=== PATIENT | male | born 1990 | race African-American/Black ===

== ENCOUNTER 2016-04-09 17:35 | Emergency (ER) | payer BC ==
[2016-04-09 18:45] LABS: BASOPHILS 0.7 % (0.0-2.0); HEMATOCRIT 40.6 % (42.0-54.0); HEMOGLOBIN 13.8 g/dL (13.5-17.5); IMMATURE GRANULOCYTES 0.2 % (0-5); LYMPHOCYTES 45.1 % (15-50); MCH 30.4 pg (26.0-34.0); MCV 89.4 fL (80.0-100.0); MONOCYTES 8.5 % (2-11); NEUTROPHILS 40.5 % (40-80); PLATELET COUNT 225 10x3/uL (130-400); RBC 4.54 10x6/uL (4.20-6.10); RDW 12.5 % (11.5-14.5); WBC 5.4 10x3/uL (4.8-10.8)
[2016-04-09 18:56] LABS: ALBUMIN 3.8 g/dL (3.4-5.0); ALKALINE PHOSPHATASE 44 U/L (46-116); ALT (SGPT) 189 U/L (10-68); BILIRUBIN - TOTAL 0.41 mg/dL (0.2-1.3); CALC OSMOLALITY 282 mosm/kg (275-300); CALCIUM 9.6 mg/dL (8.5-10.1); CARBON DIOXIDE 28.7 mmol/L (21.0-32.0); CHLORIDE - SERUM 104 mmol/L (98-107); CREATININE - SERUM 1.2 mg/dL (0.6-1.3); GLUCOSE 98 mg/dL (74-106); POTASSIUM - SERUM 4.1 mmol/L (3.5-5.1); SODIUM 141 mmol/L (136-145); UREA NITROGEN 18 mg/dL (7-18); eGFR NON AFRICAN AMERICAN 80 mL/min (90-120)
[2016-04-09 19:46] LABS: APPEARANCE CLEAR (CLEAR); BILIRUBIN NEGATIVE (NEGATIVE); COLOR YELLOW (YELLOW); GLUCOSE NEGATIVE (NEGATIVE); KETONE NEGATIVE (NEGATIVE); LEUKOCYTE ESTERASE NEGATIVE (NEGATIVE); NITRITE NEGATIVE (NEGATIVE); PROTEIN NEGATIVE (NEGATIVE); UROBILINOGEN NORMAL (NORMAL)
[2016-04-09 20:09] LABS: AMYLASE - SERUM 90 U/L (25-115); LIPASE 152 U/L (73-393)
--- NOTE | 2016-04-12 15:59 | CN ---
PATIENT NAME:DANITZA MELENDREZ MEDICAL RECORD: [id number] : [birth year] LOCATION:.ER ADMIT DATE: ACCOUNT: [id number] CONSULTING PHYSICIAN: DANITZA SANCHEZ MD REFERRING PHYSICIAN: CATHLEEN OLIVER MD DATE OF CONSULTATION: 04/09/2016 Consultation note addendum CHIEF COMPLAINT: Abdominal pain. HISTORY OF PRESENT ILLNESS: The patient presents with abdominal pain. The CT scan revealed a marked dilation of the colon. There is no apparent volvulus. The patient appears to be quite constipated. He states that he has normal bowel movements. He has a huge amount of fecal material present. There was a question of a rectosigmoid mass. I really do not think that there is a mass, or else, the patient would not have all of the solid fecal material that is present within the rectum, which is distal to the mass. Palpation aggravates. Nothing alleviates. Symptoms are mild. They are nonradiating. This is a dictated portion of the consultation note. For the typed portion, please the chart. This would include the past medical and surgical history, allergies, current medications, and social history. REVIEW OF SYSTEMS: Positive for abdominal pain. Positive for nausea. No fever, no chills, no peritonitis, no shortness of breath, and no chest pain. The rest of the review of systems is negative other than as is described above. PHYSICAL EXAMINATION: GENERAL: The patient does not appear acutely ill. He does not appear chronically ill. VITAL SIGNS: Reviewed. HEAD: External ears appear normal. EYES: Extraocular movements are intact. NECK: Trachea is midline. CHEST: No intercostal retractions. PULMONARY: Nonlabored and no stridor. ABDOMEN: Lower abdominal tenderness without guarding. No peritonitis. EXTREMITIES: No peripheral cyanosis. INTEGUMENT: No rash and no ulcerations. PSYCHIATRIC: Normal affect. NEUROLOGIC: Nonfocal and no lethargy. The patient answers questions appropriately. He moves all extremities well. BACK: No thoracic kyphosis. LYMPHATICS: No lymphangitic streaking of the exposed extremities. IMPRESSION: Marked constipation. PLAN: GoLYTELY. I will see the patient on a p.r.n. basis. I have recommended that he had a colonoscopy sometime in the future. TRANSINT:[id number] Voice Confirmation ID: [id number] DOCUMENT ID: [id number] CONSULT REPORT [id number] DANITZA MELENDREZ, DANITZA CORONADO at 1559 CC: [id number] DICTATION DATE: 04/11/16 1055 SUBSTANCE ADDICTION COORDINATOR: 04/11/16 1111 DEP ER 04/09/16 [place] [id number] [place] [address]
== END 2016-04-09 22:46 | disposition home or self-care (01) ==
LOC: D.ER 17:35
PROVIDERS: Nurse Practitioner Family
DX: K59.00 Constipation, unspecified (principal)

== ENCOUNTER 2016-04-10 08:48 | Inpatient (IN) | payer BC ==
[~2016-04-10] VITALS: Ht 175.3 cm; Wt 74.1 kg
[2016-04-10 09:52] LABS: APPEARANCE CLEAR (CLEAR); BILIRUBIN NEGATIVE (NEGATIVE); COLOR YELLOW (YELLOW); GLUCOSE NEGATIVE (NEGATIVE); KETONE NEGATIVE (NEGATIVE); LEUKOCYTE ESTERASE NEGATIVE (NEGATIVE); NITRITE NEGATIVE (NEGATIVE); PROTEIN NEGATIVE (NEGATIVE); UROBILINOGEN NORMAL (NORMAL)
[2016-04-10 10:01] LABS: BASOPHILS 0.5 % (0.0-2.0); EOSINOPHILS 4.3 % (0-7); HEMATOCRIT 40.9 % (42.0-54.0); HEMOGLOBIN 13.9 g/dL (13.5-17.5); IMMATURE GRANULOCYTES 0.3 % (0-5); LYMPHOCYTES 37.6 % (15-50); MCH 30.5 pg (26.0-34.0); MCV 89.7 fL (80.0-100.0); MEAN PLATELET VOLUME 10.9 fL (7.4-10.4); MONOCYTES 8.7 % (2-11); NEUTROPHILS 48.6 % (40-80); PLATELET COUNT 222 10x3/uL (130-400); RBC 4.56 10x6/uL (4.20-6.10); RDW 12.6 % (11.5-14.5); WBC 5.9 10x3/uL (4.8-10.8)
[2016-04-10 10:28] LABS: ALBUMIN 3.4 g/dL (3.4-5.0); ALKALINE PHOSPHATASE 39 U/L (46-116); ALT (SGPT) 165 U/L (10-68); BILIRUBIN - TOTAL 0.49 mg/dL (0.2-1.3); CARBON DIOXIDE 31.7 mmol/L (21.0-32.0); CHLORIDE - SERUM 106 mmol/L (98-107); CREATININE - SERUM 1.2 mg/dL (0.6-1.3); GLUCOSE 90 mg/dL (74-106); POTASSIUM - SERUM 3.9 mmol/L (3.5-5.1); PROTEIN - SERUM 6.2 g/dL (6.4-8.2); SODIUM 144 mmol/L (136-145); eGFR NON AFRICAN AMERICAN 80 mL/min (90-120)
[2016-04-10 10:32] LABS: CALC OSMOLALITY 286 mosm/kg (275-300); UREA NITROGEN 13 mg/dL (7-18)
--- NOTE | 2016-04-10 12:36 | NUR ---
RECIEVED PATIENT VIA WHEELCHAIR WITH NURSE FROM ED, PATIENT'S MOM AND SISTER. PATIENT AWAKE, ALERT AND ORIENTED X'S 4. RESPIRATIONS ARE EVEN AND UNLABORED ON ROOM AIR. NO SIGNS OF DISTRESS NOTED. BED IN LOWEST POSITION, CALL LIGHT IN REACH. BED RAILS UP X'S 2.
[2016-04-10 12:45] VITALS: BP 115/78; Ht 175.3 cm; Wt 74.1 kg
[2016-04-10 18:10] VITALS: BP 108/71
--- NOTE | 2016-04-10 19:55 | NUR ---
PATIENT RESTING IN BED WITH NO SIGNS OF DISTRESS NOTED. DENIES ANY NEEDS AT THIS TIME. BED LOW CALL LIGHT IN REACH.
[2016-04-10 21:00] VITALS: BP 101/62
[2016-04-11 02:00] VITALS: BP 93/42
--- NOTE | 2016-04-11 02:30 | NUR ---
PT IN BED WITH NO NEEDS. LEFT FOREARM PATENT AND FLUIDS ARE RUNNING PER ORDER. SIDE RAILS ARE UP X 2. BED IS LOW. CALL LIGHT IS IN REACH.
[2016-04-11 06:00] VITALS: BP 94/41
[2016-04-11 08:30] VITALS: BP 107/45
[2016-04-11 12:14] VITALS: BP 101/49
--- NOTE | 2016-04-11 16:41 | NUR ---
Patient Name: DANITZA MELENDREZ Admission Status: ER Accout number: [id number] Admission Date: 04-10-2016 : 1990 Admission Diagnosis: Attending: JAVIER Current LOS: 1 Anticipated DC Date: 04-13-2016 Planned Disposition: Home Primary Insurance: [employer] Discharge Planning Comments: CM MET WITH PATIENT REGARDING D/C NEEDS AND PLANS. PATIENT STATES HE LIVES WITH HIS MOM (ELIZABETH) AND SISTER (BEAN). PATIENT STATED THERE ARE NO STEPS OR STAIRS AT HIS HOME. PATIENT DOES NOT HAVE A PCP AND USES [facility] [address] FOR HIS PHARMACY. PATIENT IS INDEPENDENT WITH HIS NEEDS AND NO DME AT HOME. PATIENT DENIES NEEDS FOR HOME HEALTH. CM WILL CONTINUE TO FOLLOW PATIENT WITH D/C NEEDS AND PLANS. PCP NONE [facility] [address]- [phone] BEAN (SISTER) [phone] ELIZABETH (MOM) [phone] Sap Gatherer: Noy Gonzalez Is the patient Alert and Oriented? Yes 0 * How many steps to enter\exit or inside your home? 0 0 * PCP NONE 0 * Pharmacy [facility] [address] 0 * Preadmission Environment Home with Family 0 * ADLs Independent 0 * Equipment None 0 * List name and contact numbers for known caregivers / representatives who currently or will assist patient after discharge: ELIZABETH HERNANDEZ (MOM) [phone] BEAN MELENDREZ (SISTER) [phone] 0 * Community resources currently utilized None 0 * Additional services required to return to the preadmission environment? Yes 0 * Can the patient safely return to the preadmission environment? Yes 0 * Has this patient been hospitalized within the prior 30 days at any hospital? No 0 Grand Total: 0
[2016-04-11 16:54] VITALS: BP 109/53
[2016-04-11 21:00] VITALS: BP 98/51
[2016-04-12 00:21] VITALS: BP 98/45
--- NOTE | 2016-04-12 02:04 | NUR ---
RESTING WITH EYES CLOSED, RESP WITH EASE, NO DISTRESS NOTED, CL IN REACH
[2016-04-12 05:00] VITALS: BP 104/96
--- NOTE | 2016-04-12 07:05 | NUR ---
PATIENT RECEIVED ALERT IN LOW GRAYSON POSITION. RESPIRATIONS EVEN AND UNLABORED. SIDE RAILS UP X1. BED IN LOW POSITION. CALL LIGHT IN REACH. DENIES NEEDS
[2016-04-12 07:53] VITALS: BP 140/80
--- NOTE | 2016-04-12 10:08 | NUR ---
PATIENT ALERT IN BED WITH FAMILY PRESENT. SCHEDULED MEDICATION ADMINISTERED. DENIES NEEDS. BED IN LOW POSITION. CALL LIGHT IN REACH.
--- NOTE | 2016-04-12 10:30 | NUR ---
REPORT CALLED TO [facility]. DAYA LATHAM RN RECEIVED REPORT.
--- NOTE | 2016-04-12 11:15 | NUR ---
PATIENT AMBULATED TO ROOM ACCOMPANIED BY VOLUNTEER AND FAMILY. BELONGINGS WITH HIM. TWO FEMALE VISITORS TO STAY WITH HIM TODAY.
--- NOTE | 2016-04-12 12:00 | NUR ---
CALL PLACED TO GI LAB. PATIENT IS EXPECTED TO GO FOR COLONOSCOPY SOMETIME BETWEEN 3 AND 4 THIS AFTERNOON. NOTIFIED SERENA. HE DENIES OTHER NEEDS AT THIS TIME.
--- NOTE | 2016-04-12 13:19 | NUR ---
PATIENT RESTING QUIETLY WITH LIGHTS OUT. HE DEINS NEEDS AT THISTIME.
--- NOTE | 2016-04-12 14:45 | NUR ---
PATIENT OFF UNIT IN BED FOR PROCEDURE.
--- NOTE | 2016-04-12 15:59 | HP ---
PATIENT: DANITZA MELENDREZ MEDICAL RECORD: [id number] ACCOUNT: [id number] [facility] : [birth year] ADMISSION DATE: 04/11/16 HISTORY AND PHYSICAL EXAMINATION DATE OF ADMISSION: 04/11/2016 HISTORY OF PRESENT ILLNESS: I saw the patient in the Emergency Room the night before last. He was constipated. I personally reviewed the CT images. I personally reviewed the CT report. We gave the patient GoLYTELY. He returned to the Emergency Room with abdominal pain, nausea and vomiting, as well as very little stool production even after drinking the entire bottle of the GoLYTELY. We need to find out the etiology for his constipation. Additionally, the CT reports raise the question of a sigmoid or rectal mass. They also mentioned possible enteritis or colitis; however, in that circumstance. The patient initially should have diarrhea. Nothing aggravates. Nothing alleviates. His abdomen is nontender. He is nauseated. No radiating symptoms. This is a history and physical addendum. For the typed portion of the history and physical including past medical and surgical history, home medications, allergies, as well as social history, please see the chart. REVIEW OF SYSTEMS: No shortness of breath, no chest pain. Positive for nausea. No abdominal pain. The patient states that he has normal bowel movements and I did not think he was constipated, until he was told so after we looked at the x-ray images. PHYSICAL EXAMINATION: GENERAL: The patient does not appear acutely ill. He does not appear chronically ill. VITAL SIGNS: Reviewed. HEAD: External ears appear normal. EYES: Extraocular movements are intact. NECK: Trachea is midline. CHEST: No intercostal retractions. PULMONARY: Nonlabored, no stridor. ABDOMEN: Nontender. EXTREMITIES: No peripheral cyanosis. INTEGUMENT: No rash, no ulcerations. PSYCHIATRIC: Normal affect. BACK: No thoracic kyphosis. LYMPHATICS: No lymphangitic streaking of the exposed extremities. IMPRESSION: 1. Constipation. 2. Possible rectosigmoid mass. PLAN: Continue bowel prep. Colonoscopy tomorrow. TRANSINT:[id number] Voice Confirmation ID: [id number] DOCUMENT ID: [id number] HISTORY AND PHYSICAL [id number] DANITZA MELENDREZ ROBERT MD at 1559 CC: [id number] DICTATION DATE: 04/11/16 1010 SURFACE SUPERVISOR: 04/11/16 1027 ADM IN [place] [id number] [place] [id number]
--- NOTE | 2016-04-12 16:20 | NUR ---
PATIENT RECEIVED BACK TO ROOM 1214. HE IS AWAKE AND ALERT, CONFUSED ABOUT LOCATION AND RECENT EVENTS. HE IS C/O NAUSEA. NO VOMITING. ZOFRAN GIVEN PER LEFT FA IV. INSERTION SITE IS WITHOUT REDNESS/ SWELLING. EXPLAINED THAT HE IS TO HAVE A FULL LIQUID DIET, BE WITHOUT NAUSEA AND PASS GAS BEFORE GOING HOME. ORDERS NOTED. HE AND HIS MOTHER VOICE UNDERSTANDING. SHE IS AT THE BEDSIDE WITH PT SISTER.
--- NOTE | 2016-04-12 16:35 | NUR ---
ICE CHIPS WERE GIVEN AT LAST ENCOUNTER. HE REQUESTS LEMON PRAIRIE BAND. GIVEN. NAUSEA CONTINUES.
--- NOTE | 2016-04-12 18:31 | NUR ---
REVIEWED PATIENT'S DISCHARGE INSTRUCTIONS. CHOLECYSTECTOMY DI GIVEN THOUGH HE DOESN'T FEEL LIKE HIS GALL BLADDER IS A PROBLEM. FOLLOW UP APPT MADE AND GIVEN WELL. MIRALAX DISCUSSED IN DETAIL, MECHANISM OF ACTION EXPLAINED. HE IS WITHOUT QUESTIONS. IV REMOVED FROM THE LEFT FOREARM. HE IS WITHOUT NEEDS. HE REQUESTS PERMISSION TO WALK OUT WITH HIS FAMILY. ALLOWED. DENIES WEAKNESS, PAIN.
--- NOTE | 2016-05-25 10:17 | OP ---
PATIENT NAME: ABDULKADIR MELENDREZ MEDICAL RECORD: [id number] :[birth year] LOCATION:[facility] ADMISSION DATE:04/11/16 SURGEON: ABDULKADIR SANCHEZ MD DATE OF OPERATION: 04/12/2016 PREOPERATIVE DIAGNOSES: 1. Constipation. 2. Rule out rectosigmoid mass. POSTOPERATIVE DIAGNOSES: 1. Constipation. 2. Tortuous and elongated colon. 3. No evidence of colonic polyps or masses. PROCEDURES: Total colonoscopy to cecum. SURGEON: Abdulkadir Sanchez MD OUTPATIENT INTERVIEWING CLERK: None. BLOOD LOSS: Minimal. ANESTHESIA: IV sedation. COMPLICATIONS: None. The reason for the anesthesia staff being present during the procedure includes anxiety regarding the procedure. ENDOSCOPIC COURSE: The patient was conveyed to endoscopy suite electively on 04/12/2016. IV sedation was induced by the anesthesia staff. The patient was placed in the Hernandes position. A digital rectal examination was performed. A colonoscope was inserted through the anus. It was easily advanced to the cecum. Following withdrawal, I irrigated and aspirated extensively. The prep was inadequate. I dragged the folds. The pullback was greater than a 14-minute pullback. I cannot rule out colonic or rectal masses. A retroflexed view was obtained in the rectum. I then unretroflexed the scope and removed it under direct vision. I will see the patient in my office in 2-3 weeks. I instructed the family to place the patient on MiraLax twice daily for his extreme constipation. TRANSINT:[id number] Voice Confirmation ID: [id number] DOCUMENT ID: [id number] ABDULKADIR SANCHEZ MD at 1017 CC: [id number] DICTATION DATE: 04/12/16 1602 GREEN CHAINER: 04/12/16 1832 DIS IN 04/12/16 [facility] [address] [place] [address]
--- NOTE | 2016-05-25 10:17 | DS ---
PATIENT:DANITZA MELENDREZ :89 MEDICAL RECORD: [id number] DISCHARGE SUMMARY ADMISSION DATE: 04/11/16 DISCHARGE DATE: 04/12/16 PREOPERATIVE DIAGNOSIS: Fecal impaction with extreme constipation. PRINCIPAL PROCEDURE: Total colonoscopy to cecum. HOSPITAL COURSE: The patient was admitted through the Emergency Room. He underwent a CT scan. It was equivocal for a rectosigmoid mass. The patient underwent a bowel prep. He underwent a colonoscopy. No rectosigmoid mass was noted. He is being dismissed home. I have instructed his family that he should be on MiraLax twice daily. I will see him in the office in 2-3 weeks. TRANSINT:[id number] Voice Confirmation ID: [id number] DOCUMENT ID: [id number] DANITZA SANCHEZ MD at 1017 CC: [id number] DICTATION DATE: 04/12/16 1603 MOBILE UNIT ASSISTANT: 04/12/16 1841 DIS IN 04/12/16 [facility] [address] [place] [address]
== END 2016-04-12 18:42 | disposition home or self-care (01) | DRG 390 ==
LOC: D.ER 08:48 → D.MS 11:28 → OBSVTIME 11:30 → D.MS 04-11 15:12 → D.WS 04-12 10:43
PROVIDERS: Emergency Medicine; Nurse Practitioner Family; ADMIT Surgery
PROC: 0DJD8ZZ Inspection of Lower Intestinal Tract, Via Natural or Artificial Opening Endoscopic (ICD-10-PCS; principal; 2016-04-12 14:45)
DX: K56.41 Fecal impaction (principal)

== ENCOUNTER 2016-05-03 17:50 | Inpatient (IN) | payer BC ==
[~2016-05-03] VITALS: Ht 175.3 cm; Wt 59.1 kg
[2016-05-03 18:45] LABS: APPEARANCE CLEAR (CLEAR); BILIRUBIN NEGATIVE (NEGATIVE); COLOR YELLOW (YELLOW); GLUCOSE NEGATIVE (NEGATIVE); KETONE NEGATIVE (NEGATIVE); LEUKOCYTE ESTERASE NEGATIVE (NEGATIVE); NITRITE NEGATIVE (NEGATIVE); PROTEIN NEGATIVE (NEGATIVE); SPECIFIC GRAVITY 1.015 (1.005-1.020); UROBILINOGEN NORMAL (NORMAL)
[2016-05-03 18:48] LABS: BASOPHILS 0.9 % (0.0-2.0); EOSINOPHILS 4.2 % (0-7); HEMATOCRIT 36.3 % (42.0-54.0); HEMOGLOBIN 12.2 g/dL (13.5-17.5); IMMATURE GRANULOCYTES 0.2 % (0-5); LYMPHOCYTES 45.4 % (15-50); MCH 30.2 pg (26.0-34.0); MCHC 33.6 g/dL (31.0-37.0); MCV 89.9 fL (80.0-100.0); MEAN PLATELET VOLUME 10.7 fL (7.4-10.4); MONOCYTES 11.4 % (2-11); NEUTROPHILS 37.9 % (40-80); PLATELET COUNT 221 10x3/uL (130-400); RBC 4.04 10x6/uL (4.20-6.10); RDW 12.7 % (11.5-14.5); WBC 5.4 10x3/uL (4.8-10.8)
[2016-05-03 19:04] LABS: ALBUMIN 3.8 g/dL (3.4-5.0); ALKALINE PHOSPHATASE 48 U/L (46-116); ALT (SGPT) 32 U/L (10-68); BILIRUBIN - TOTAL 0.36 mg/dL (0.2-1.3); CALC OSMOLALITY 281 mosm/kg (275-300); CALCIUM 9.3 mg/dL (8.5-10.1); CARBON DIOXIDE 32.1 mmol/L (21.0-32.0); CHLORIDE - SERUM 104 mmol/L (98-107); CREATININE - SERUM 1.2 mg/dL (0.6-1.3); GLUCOSE 88 mg/dL (74-106); POTASSIUM - SERUM 3.8 mmol/L (3.5-5.1); PROTEIN - SERUM 6.6 g/dL (6.4-8.2); SODIUM 142 mmol/L (136-145); UREA NITROGEN 13 mg/dL (7-18); eGFR NON AFRICAN AMERICAN 80 mL/min (90-120)
--- NOTE | 2016-05-04 01:29 | NUR ---
REC'D TO ROOM 2216 FROM ER DEPT A 25 Y/O B/M PER SERVICES DR. STEELE WITH DX. LARGE BOWEL OBSTRUCTION. NKDA SALINE LOCK PATENT LEFT AC. ASSESSMENT PER ADMIT PACKET.
--- NOTE | 2016-05-04 01:45 | NUR ---
S/S ENEMAS STARTED ORDERED. FIRST BAG OF 1500CC'S HELD AND EXPELLED LARGE AMOUNT FORMED BROWN STOOL. SECONG BAG OF 1500CC'S S/S ENEMA GIVEN EXPELLED CLEAR WATER NO STOOL SEEN.TOLERATED WELL.
--- NOTE | 2016-05-04 03:00 | NUR ---
RESTING IN BED SR UP X2 CALL LIGHT WITHIN REACH.
--- NOTE | 2016-05-04 03:53 | NUR ---
1000C'S D5NS STARTED AT 125CC'S/HR
[2016-05-04 03:59] VITALS: BP 113/77; Ht 175.3 cm; Wt 59.1 kg
--- NOTE | 2016-05-04 04:14 | NUR ---
EYES CLOSED RESPIRATIONS WITH EASE AND UNLABORED.
--- NOTE | 2016-05-04 07:48 | NUR ---
SLEPING QUIETLY AT PRESENT RESP EVEN AND UNLABORED AT PRESENT .
--- NOTE | 2016-05-04 09:40 | NUR ---
CONT TO SLEP QUIETLY DENIES ANY NEEDS AT THIS TIME AT PRESENT.
--- NOTE | 2016-05-04 11:00 | NUR ---
CONT NPO WAITING ON MD UP AND ABOUT IN ROOM DENIES ANY NEEDS AT THIS TIME.
[2016-05-04 12:36] VITALS: BP 103/40
--- NOTE | 2016-05-04 13:00 | NUR ---
QUIET N/C CONT NPO FOR X-RAY.
--- NOTE | 2016-05-04 15:00 | NUR ---
BACK FROM X-RAY TAKING CLEAR LIQS WELL AND RET AT PRESENT.
--- NOTE | 2016-05-04 15:26 | NUR ---
CLEAR LIQS TAKEN 50% AT PRESENT.
[2016-05-04 16:02] VITALS: BP 100/59
--- NOTE | 2016-05-04 17:19 | NUR ---
STATUS REMAINS UNCHGD AT PRESENT DENIES ANY NEEDS AT THIS TIME FAMILY AT BEDSIDE.
--- NOTE | 2016-05-04 19:15 | NUR ---
BEDSIDE REPORT RECEIVED AND CARE OF PT ASSUMED. PT SITTING UP IN BED VISITING WITH FAMILY MEMBER. LEFT AC IV SALINE LOCKED. NO PAIN AT THIS TIME. WILL MONITOR ADRIENNELEY FOR NEEDS.
--- NOTE | 2016-05-04 19:45 | NUR ---
PT REQUESTING MED FOR NAUSEA. GAVE ZOFRAN PER PRN ORDER. WILL MONITOR FOR EFFECTIVENESS. CALL LIGHT WITHIN REACH.
[2016-05-04 21:00] VITALS: BP 91/37
--- NOTE | 2016-05-04 21:00 | NUR ---
HS MEDICATIONS GIVEN. NO NAUSEA REPORTED AT THIS ASSESSMENT. WILL CONTINUE TO MONITOR FOR NEEDS.
--- NOTE | 2016-05-05 00:05 | NUR ---
PT RESTING QUIETLY IN SUPINE POSITION WITH UNLABORED BREATHING. WILL CONTINUE TO MONITOR FOR NEEDS. CALL LIGHT WITHIN REACH.
[2016-05-05 05:00] VITALS: BP 89/48
--- NOTE | 2016-05-05 06:30 | NUR ---
PT RESTED WELL OVERNIGHT. HAD X1 BM THIS SHIFT.
[2016-05-05 07:53] VITALS: BP 92/45
--- NOTE | 2016-05-05 08:00 | NUR ---
ASSESSMENT PER FLOW SHEET.PT WITHOUT DISTRESS.DENIES NAUSEA AT PRESENT.REPORT LARGE BM X1 LAST NIGHT.CALL LIGHT IN REACH
[2016-05-05] MEDS ORDERED: MINERAL OIL25 ML PO (10:15)
--- NOTE | 2016-05-05 10:35 | NUR ---
Patient Name: DANITZA MELENDREZ Admission Status: ER Accout number: [id number] Admission Date: 05-04-2016 : 1990 Admission Diagnosis: Attending: BALTAZAR Current LOS: 1 Anticipated DC Date: 05-05-2016 Planned Disposition: Home Primary Insurance: Chloe + Isabel [facility] Discharge Planning Comments: CM MET WITH PATIENT REGARDING D/C NEEDS AND PLANS. PATIENT STATED HE LIVES WITH HIS MOTHER (ELIZABETH) AND SHE WILL DRIVE HIM HOME AT DISCHARGE. PATIENT STATED THERE ARE NO STEPS OR STAIRS AT THERE HOME. PATIENT STATED HE IS INDEPENDENT WITH HIS CARE AND HAS NO DME AT HOME. PATIENT DOES NOT HAVE A PCP AT THIS TIME. PATIENT USES [facility] [address] FOR HIS PHARMACY. PATIENT DENIES THE NEED FOR HOME HEALTH AND HAS NO OTHER NEEDS AT THIS TIME. CM WILL CONTINUE TO FOLLOW PATIENT WITH D/C NEEDS AND PLANS. PCP NONE [facility] [address]- [phone] ELIZABETH [place] [place] [phone] Beater Boss: Noy Gonzalez Is the patient Alert and Oriented? Yes 0 * How many steps to enter\exit or inside your home? 0 0 * PCP NONE 0 * Pharmacy [facility] [address] 0 * Preadmission Environment Home with Family 0 * ADLs Independent 0 * Equipment None 0 * List name and contact numbers for known caregivers / representatives who currently or will assist patient after discharge: [facility] [place] [phone] 0 * Community resources currently utilized None 0 * Additional services required to return to the preadmission environment? Yes 0 * Can the patient safely return to the preadmission environment? Yes 0 * Has this patient been hospitalized within the prior 30 days at any hospital? Yes 0
--- NOTE | 2016-05-05 10:42 | NUR ---
CM REASSESSMENT NOTE: PATIENT IS DISCHARGING HOME TODAY-MOTHER DRIVING HIM HOME. PATIENT DENIED HOME HEALTH OR OTHER NEEDS.
[2016-05-05 11:59] VITALS: BP 91/50
--- NOTE | 2016-05-05 12:20 | NUR ---
IV DCD CATH INTACT.DISCHARGE INSTRUCTIONS,STATES UNDERSTANDING.WILL LET US KNOW WHEN READY FOR WHEELCHAIR.FAMILY AT SIDE.
--- NOTE | 2016-05-05 13:17 | NUR ---
left unit via wheelchair for transport home
== END 2016-05-05 13:18 | disposition home or self-care (01) | DRG 392 ==
LOC: D.ER 17:50 → D.MS 05-04 00:36 → OBSVTIME 05-04 00:36 → D.MS 05-04 00:36
PROVIDERS: Emergency Medicine; ADMIT Surgery
DX: K59.00 Constipation, unspecified (principal)

== ENCOUNTER → 2016-05-27 11:35 | Outpatient (CLI) | payer BC ==
[2016-05-04 03:59] VITALS: BMI 19.2
[~2016-05-27 11:35] MED LIST: AMITIZA24 MCG PO; AMITIZA8 MCG PO; MINERAL OIL25 ML PO; MIRALAX17 GM PO; ZOFRAN4 MG PO
== END | disposition home or self-care (01) ==
LOC: D.RAD 11:30
DX: K59.00 Constipation, unspecified (principal)

== ENCOUNTER 2016-06-28 07:06 | Observation (INO) | payer BC ==
[~2016-06-28] VITALS: Ht 175.3 cm; Wt 75.0 kg
[~2016-06-28 07:06] MED LIST changes: -AMITIZA24 MCG PO; -AMITIZA8 MCG PO; -MIRALAX17 GM PO; -ZOFRAN4 MG PO
[2016-06-28 08:01] LABS: BASOPHILS 0.6 % (0.0-2.0); EOSINOPHILS 5.8 % (0-7); HEMATOCRIT 41.9 % (42.0-54.0); LYMPHOCYTES 48.2 % (15-50); MCH 30.2 pg (26.0-34.0); MCHC 33.4 g/dL (31.0-37.0); MCV 90.3 fL (80.0-100.0); MEAN PLATELET VOLUME 10.8 fL (7.4-10.4); MONOCYTES 10.4 % (2-11); PLATELET COUNT 180 10x3/uL (130-400); RBC 4.64 10x6/uL (4.20-6.10); RDW 12.5 % (11.5-14.5); WBC 3.3 10x3/uL (4.8-10.8)
[2016-06-28 08:36] LABS: ALBUMIN 3.8 g/dL (3.4-5.0); ALKALINE PHOSPHATASE 55 U/L (46-116); ALT (SGPT) 33 U/L (10-68); BILIRUBIN - TOTAL 0.53 mg/dL (0.2-1.3); CALC OSMOLALITY 280 mosm/kg (275-300); CALCIUM 9.1 mg/dL (8.5-10.1); CARBON DIOXIDE 27.2 mmol/L (21.0-32.0); CHLORIDE - SERUM 105 mmol/L (98-107); GLUCOSE 97 mg/dL (74-106); POTASSIUM - SERUM 4.6 mmol/L (3.5-5.1); PROTEIN - SERUM 6.5 g/dL (6.4-8.2); SODIUM 141 mmol/L (136-145); UREA NITROGEN 12 mg/dL (7-18); eGFR NON AFRICAN AMERICAN > 90 mL/min (90-120)
[2016-06-28 10:16] LABS: APPEARANCE CLEAR (CLEAR); COLOR YELLOW (YELLOW)
[2016-06-28 10:17] LABS: BILIRUBIN NEGATIVE (NEGATIVE); GLUCOSE NEGATIVE (NEGATIVE); KETONE NEGATIVE (NEGATIVE); LEUKOCYTE ESTERASE NEGATIVE (NEGATIVE); NITRITE NEGATIVE (NEGATIVE); PROTEIN NEGATIVE (NEGATIVE); UROBILINOGEN NORMAL (NORMAL)
[2016-06-28] MEDS ORDERED: AMITIZA8 MCG PO (11:07)
[2016-06-28] MEDS ORDERED: MIRALAX17 GM PO (11:07)
[2016-06-28 11:08] VITALS: BP 120/80; BMI 24.5
[2016-06-28] MEDS ORDERED: ZOFRAN4 MG PO (11:08)
--- NOTE | 2016-06-28 11:16 | NUR ---
PT TO ROOM VIA WHEELCHAIR. ALERT AND ORIENTED. STARTED IV FLUIDS. ADMISSION COMPLETE.
--- NOTE | 2016-06-28 13:02 | NUR ---
STUDENT NURSE ADMINISTERED FIRST SOAP SUDS ENEMA. ADMIN 1500 OVER A PERIOD OF 1 HOUR. PT CURRENTLY ON THE TOILET.
--- NOTE | 2016-06-28 13:18 | NUR ---
PT HAD LARGE FORMED BM. STUDENT NURSE ADMINISTERED SECOND BAG OF SOAP SUDS ENEMA 1500 CC
[2016-06-28 16:00] VITALS: BP 96/44
--- NOTE | 2016-06-28 16:05 | NUR ---
GIVEN PT MAG CITRATE. PT WANTS TO SEE IF ANY PROGRESS WITH IT BEFORE CONTINUING WITH ENEMAS
--- NOTE | 2016-06-28 18:27 | NUR ---
PT SITTING UP IN BED DRINKING MAG CITRATE STILL. MOM AT BEDSIDE. WILL LET NURSING STAFF KNOW WHEN READY FOR ANOTHER ENEMA. DR ABAD ROUNDED ON PT AND SAID THAT HE WANTS HIM TO DO A COLONOSCOPY WHILE PT HERE IN THE HOSPITAL. WILL CONSULT GI. PT DENIES OTHER NEEDS WILL CONT TO MONITOR.
--- NOTE | 2016-06-28 19:15 | NUR ---
ALERT/AWAKE ORIENTED X 4. DENIES PAIN OR ANY NEEDS. IV IN R AC INTACT/PATENT WITH NS INFUSINGS AT 100ML/HR. FAMILY MEMBERS PRESENT IN ROOM.
[2016-06-28 20:00] VITALS: BP 130/72
[2016-06-29] VITALS: BP 108/64
--- NOTE | 2016-06-29 02:47 | NUR ---
STATED HE COULD NOT DRINK THE GOLYTELY. THAT IT MADE HIM FEEL SICK TO HIS STOMACH. DID DRINK ABOUT 240 CC AND STATED HAD A BM OF SMALL AMT OF GREENISH LIQUID CONSISTANCY.
[2016-06-29 04:00] VITALS: BP 123/59
[2016-06-29 04:52] LABS: ALBUMIN 3.5 g/dL (3.4-5.0); ALKALINE PHOSPHATASE 51 U/L (46-116); ALT (SGPT) 29 U/L (10-68); BILIRUBIN - TOTAL 0.83 mg/dL (0.2-1.3); CALC OSMOLALITY 277 mosm/kg (275-300); CALCIUM 8.7 mg/dL (8.5-10.1); CARBON DIOXIDE 27.6 mmol/L (21.0-32.0); CHLORIDE - SERUM 106 mmol/L (98-107); CREATININE - SERUM 1.2 mg/dL (0.6-1.3); GLUCOSE 100 mg/dL (74-106); POTASSIUM - SERUM 4.1 mmol/L (3.5-5.1); PROTEIN - SERUM 6.2 g/dL (6.4-8.2); SODIUM 140 mmol/L (136-145); UREA NITROGEN 10 mg/dL (7-18); eGFR NON AFRICAN AMERICAN 80 mL/min (90-120)
--- NOTE | 2016-06-29 07:20 | NUR ---
LYING IN BED, DENIES NEEDS, STATES HIS STOMACH FEELS BETTER, ALERT AND ORIENTED, CALL LIGHT IN REACH, BED LOWEST POSITION, WILL CONTINUE TO MONITOR
--- NOTE | 2016-06-29 07:40 | NUR ---
STATED HE COULD NOT DRINK ANYMORE OF THE GOLYTELY. DENIES ABD PAIN.
[2016-06-29 08:00] VITALS: BP 108/49
--- NOTE | 2016-06-29 10:39 | NUR ---
UP SOB WITH CALL LIGHT IN READH. IV PATENT. VADIM NEEDS AT THIS TIME. WILL MONITOR.
[2016-06-29 11:17] VITALS: Ht 175.3 cm; Wt 75.0 kg
[2016-06-29 12:00] VITALS: BP 107/68
--- NOTE | 2016-06-29 12:50 | NUR ---
SUPPOSITORIES GIVEN, WILL GIVE WARM WATER ENEMA LATER, MIRALAX DRANK
[2016-06-29] MEDS ORDERED: AMITIZA24 MCG PO (15:00)
[2016-06-29 16:09] VITALS: BP 107/53
[2016-06-29 20:00] VITALS: BP 115/61
[2016-06-30] VITALS: BP 115/58
[2016-06-30 04:00] VITALS: BP 102/43
[2016-06-30 05:00] LABS: HEMOGLOBIN 13.3 g/dL (13.5-17.5); MCH 30.1 pg (26.0-34.0); MCHC 33.3 g/dL (31.0-37.0); MCV 90.5 fL (80.0-100.0); MEAN PLATELET VOLUME 11.5 fL (7.4-10.4); PLATELET COUNT 191 10x3/uL (130-400); RBC 4.42 10x6/uL (4.20-6.10); RDW 12.2 % (11.5-14.5); WBC 3.7 10x3/uL (4.8-10.8)
[2016-06-30 05:29] LABS: ALBUMIN 3.2 g/dL (3.4-5.0); ANION GAP 9.1 mmol/L (8-16); BILIRUBIN - TOTAL 0.74 mg/dL (0.2-1.3); CALCIUM 8.4 mg/dL (8.5-10.1); CREATININE - SERUM 1.3 mg/dL (0.6-1.3); POTASSIUM - SERUM 4.1 mmol/L (3.5-5.1); PROTEIN - SERUM 5.9 g/dL (6.4-8.2)
[2016-06-30 06:03] LABS: ANISOCYTOSIS OCC; EOSINOPHILS 5 % (0-7); LYMPHOCYTES 57 % (15-50); MONOCYTES 10 % (2-11); NEUTROPHILS 22 % (40-80); PLATELET ESTIMATE NORMAL
--- NOTE | 2016-06-30 06:35 | NUR ---
PT REFUISES ANY ENEMAS THIS AM. STATES RECEIVING SEVERAL ENEMAS YESTERDAY AND REPORTS HIS STOOL IS CLEAR AND WITHOUT FECAL MATTER OR FLAKES. COM,PLIED WITH PT'S WISHES AT THIS TIME.
--- NOTE | 2016-06-30 07:50 | NUR ---
SERENA IS RESTING QUIETLY WITH EYES CLOSED. HE DENIES NEEDS AT THIS TIME.
[2016-06-30 09:09] VITALS: BP 109/75
--- NOTE | 2016-06-30 09:11 | NUR ---
SERENA IS AWAKE AND ALERT, WE DISCUSSED THE PLANS FOR COLONOSCOPY TODAY. HE STATES THAT HE HAD 5 ENEMAS YESTERDAY AND THE LAST ONE WAS CLEAR. THIS IS HIS REASON FOR REFUSING TODAY. HIS BS ARE HYPOACTIVE ON THE [facility] SIDE. ABDOMEN IS NONTENDER. HE HAS SIGNED HIS CONSENTS AND DENIES QUESTIONS. I INFORMED HIM THAT I WOULD BE CALLING DR. KINGSLEY, HE DENIED HAVING QUESTIONS FOR HIM. HE HAS HAD A COLONOSCOPY BEFORE.
--- NOTE | 2016-06-30 09:26 | NUR ---
SPOKE WITH DR. KINGSLEY. WILL NOT BE DOING THE COLONOSCOPY TODAY. AWAITING POC BY SURGERY. NEW ORDERS RECEIVED FOR CL DIET
[2016-06-30 12:29] VITALS: BP 117/73
--- NOTE | 2016-06-30 12:51 | NUR ---
PATIENT SITTING UP ON THE BEDSIDE. HE HAS EATEN HIS BREAKFAST. DENIES NEEDS, WANTS. CALL LIGHT IS WITHIN HIS REACH.
--- NOTE | 2016-06-30 14:01 | NUR ---
SERENA OUT AMBULATING IN THE HALLWAY. REQUESTS IV SL TO ALLOW HIM A SHOWER.
[2016-06-30 16:40] VITALS: BP 96/54
--- NOTE | 2016-06-30 17:35 | NUR ---
SERENA OUT AMBULATING IN THE HALLWAY WITH HIS IV POLE. NO NEEDS NOTED.
--- NOTE | 2016-06-30 19:25 | NUR ---
ASSESSMENT COMPLETED, NO ACUTE DISTRESS NOTED, FAMILY IN ROOM, DENIES PAIN OR NEEDS AT THIS TIME, FALL PRECAUTIONS IN PLACE, CL IN REACH, WILL MONITOR
[2016-06-30 20:00] VITALS: BP 124/67
--- NOTE | 2016-06-30 20:13 | NUR ---
MEDS GIVEN PER MAR, EVELYN WELL, FAMILY IN ROOM, CL IN REACH
--- NOTE | 2016-06-30 21:50 | NUR ---
AMBULATING IN QUINN WITH NO DISTRESS NOTED
--- NOTE | 2016-06-30 23:15 | NUR ---
LYING IN BED WATCHING TV, DENIES PAIN OR NEEDS, CL IN REACH
--- NOTE | 2016-07-01 01:13 | NUR ---
RESTING WITH EYES CLOSED, RESP WITH EASE, NO DISTRESS NOTED, SR'S UP, CL IN REACH
--- NOTE | 2016-07-01 03:40 | NUR ---
NO CHANGES SINCE LAST ROUND, SAFETY MEASURES IN PLACE, CL IN REACH
[2016-07-01 04:00] VITALS: BP 133/68
--- NOTE | 2016-07-01 07:35 | NUR ---
PT AOX4 RESP EVEN AND NONLABORED. FAMILY AT THE BEDSIDE PT DENIES NEEDS AT THIS TIME IV TO RIGHT AC PATENT AND INTACT BED AT LOWEST SETTING, CALL LIGHT WITH IN REACH WILL CONTINUE
[2016-07-01 09:36] VITALS: BP 109/67
--- NOTE | 2016-07-01 12:07 | NUR ---
IV TO RIGHT AC REMOVED AT THIS TIME WITH CATHETER INTACT. PT DISCHARGED AT THIS TIME VIA WHEELCHAIR VIA PRIVATE VEHICLE AT THIS TIME
[2016-07-01 12:11] VITALS: BP 105/52
--- NOTE | 2016-07-01 12:39 | NUR ---
PT LEFT BUILDING VIA WHEELCHAIR VIA PRIVATE VEHICLE AT THIS TIME
== END 2016-07-01 12:42 | disposition home or self-care (01) ==
LOC: D.ER 07:06 → D.M2 10:37 → OBSVTIME 10:37 → D.M2 10:37
PROVIDERS: Emergency Medicine; ADMIT Family Medicine
DX: R10.9 Unspecified abdominal pain (principal); K59.09 Other constipation; R11.0 Nausea

== ENCOUNTER 2016-07-18 18:38 | Emergency (ER) | payer BC ==
[2016-06-29 11:17] VITALS: BMI 23.3
[~2016-07-18 18:38] MED LIST changes: +AMITIZA24 MCG PO; +AMITIZA8 MCG PO; +MIRALAX17 GM PO; +ZOFRAN4 MG PO
== END 2016-07-18 23:41 | disposition home or self-care (01) ==
LOC: D.ER 18:38
DX: K59.00 Constipation, unspecified (principal)

== ENCOUNTER 2016-08-15 10:43 | Emergency (ER) | payer BC ==
[2016-06-29 11:17] VITALS: BMI 23.3
== END 2016-08-15 13:53 | disposition left against medical advice (07) ==
LOC: D.ER 10:43
DX: S69.91XA Unspecified injury of right wrist, hand and finger(s), initial encounter (principal); X58.XXXA Exposure to other specified factors, initial encounter; Y93.89 Activity, other specified; Y92.89 Other specified places as the place of occurrence of the external cause

== ENCOUNTER 2016-08-24 07:53 | Inpatient (IN) | payer BC ==
[~2016-08-24] VITALS: Ht 175.3 cm; Wt 72.6 kg
[2016-08-24 08:37] LABS: BASOPHILS 0.8 % (0-2); EOSINOPHILS 5.3 % (0-7); HEMATOCRIT 41.2 % (42.0-54.0); HEMOGLOBIN 14.1 g/dL (13.5-17.5); IMMATURE GRANULOCYTES 0.3 % (0-5); LYMPHOCYTES 41.7 % (15-50); MCH 30.7 pg (26.0-34.0); MCHC 34.2 g/dL (31.0-37.0); MCV 89.8 fL (80.0-100.0); MEAN PLATELET VOLUME 10.1 fL (7.4-10.4); MONOCYTES 12.3 % (2-11); NEUTROPHILS 39.6 % (40-80); RBC 4.59 10x6/uL (4.20-6.10); RDW 12.3 % (11.5-14.5)
[2016-08-24] MEDS ORDERED: VIMOVO 500-201 EACH PO (08:46)
[2016-08-24 08:51] VITALS: BP 116/70; BMI 23.6
[2016-08-24 08:51] LABS: PLATELET COUNT 344 10x3/uL (130-400)
[2016-08-24 08:54] LABS: ANION GAP 11.1 mmol/L (8-16); CALCIUM 9.4 mg/dL (8.5-10.1); CARBON DIOXIDE 29.4 mmol/L (21.0-32.0); CREATININE - SERUM 1.3 mg/dL (0.6-1.3); POTASSIUM - SERUM 4.5 mmol/L (3.5-5.1)
--- NOTE | 2016-08-24 20:05 | NUR ---
RECIEVED PT TO FLOOR VIA BED FROM RECOVERY. PT IS ALERT AND ORIENTED AND ABLE TO VERBALIZE NEEDS BUT A LITTLE DROWSY AT THIS TIME. IV IS PATENT AND FLUIDS ARE RUNNING FROM RECOVERY. BATEMAN IS DRAINING BLUE URINE BY GRAVITY. VSS. DRESSINGS TO ABDOMEN C/D/I. PT STATES PAIN IS 10/10. O2 @ 2 PER NASAL CANNULA. NO NEEDS ARE VERBALIZED AT THIS TIME. FAMILY IS AT THE BEDSIDE. WILL CONTINUE TO MONITOR. SIDE RAILS ARE UP X 2. BED IS IN LOWEST POSITION. CALL LIGHT IS WITHIN REACH.
[2016-08-24 20:06] VITALS: BP 147/56
--- NOTE | 2016-08-24 22:08 | NUR ---
ADMIT ASSESSMENT COMPLETED. MEDICATION AND TEACHING SPECIALISTS ADMINISTERED AND HUNG PER ORDER. NO NEEDS ARE VOICED. VSS. WILL MONITOR. FAMILY AT BEDSIDE. SIDE RAILS X 2. BED LOW. CALL LIGHT IN REACH.
[2016-08-25 02:33] VITALS: BP 147/56; BMI 23.6
[2016-08-25 04:00] VITALS: BP 121/47
[2016-08-25 05:36] LABS: BASOPHILS 0 % (0-2); EOSINOPHILS 0 % (0-7); HEMATOCRIT 37.3 % (42.0-54.0); HEMOGLOBIN 12.4 g/dL (13.5-17.5); IMMATURE GRANULOCYTES 0.3 % (0-5); MCH 30.3 pg (26.0-34.0); MCHC 33.2 g/dL (31.0-37.0); MCV 91.2 fL (80.0-100.0); MEAN PLATELET VOLUME 10.6 fL (7.4-10.4); NEUTROPHILS 89.7 % (40-80); PLATELET COUNT 325 10x3/uL (130-400); RBC 4.09 10x6/uL (4.20-6.10); RDW 12.1 % (11.5-14.5)
[2016-08-25 05:43] LABS: WBC 16.4 10x3/uL (4.8-10.8)
[2016-08-25 06:02] LABS: ANION GAP 9.9 mmol/L (8-16); BILIRUBIN - TOTAL 0.59 mg/dL (0.2-1.3); CALCIUM 8.6 mg/dL (8.5-10.1); CREATININE - SERUM 1.4 mg/dL (0.6-1.3); MAGNESIUM - SERUM 1.8 mg/dL (1.8-2.4); PHOSPHOROUS 3.2 mg/dL (2.5-4.9); POTASSIUM - SERUM 4.9 mmol/L (3.5-5.1); PROTEIN - SERUM 6.2 g/dL (6.4-8.2)
[2016-08-25 07:53] VITALS: BP 137/47
--- NOTE | 2016-08-25 08:44 | NUR ---
PT ASSESSMENT COMPLETE AWAKE AND ALERT ORINETD X 3 LUNGS CLAER BIALTERALLY HAS SUNKEN ABDOMEN WITH NOTED SUPRAPUBIC INCISION WELL LAP SITES X 5
--- NOTE | 2016-08-25 10:41 | NUR ---
PT LAYING IN BED WITH COMPLAINTS OF PAIN OF A 5 ON A SCALE OF 1-10. BONBON CREAM WARMER IN USE. PT HAS NO OTHER COMPLAINTS AT THIS TIME. BED IN LOW POSITION AND CALL LIGHT WITHIN REACH. WILL CONTINUE TO MONTIOR.
--- NOTE | 2016-08-25 11:33 | NUR ---
PT WITH NO ACUTE DISTRESS BRUSHING TEETH AND NOTED SMALL AMOUNT OF BLOOD MOUTH INSPECTED NO BLEEDING NOTED
--- NOTE | 2016-08-25 11:37 | NUR ---
SPOKE WITH DR SANCHEZ RECIEVED ORDER TO INCREASE TO ICE CHIPS ONLY DIET
[2016-08-25 12:10] VITALS: Ht 175.3 cm; Wt 72.6 kg
[2016-08-25 12:32] VITALS: BP 106/52
--- NOTE | 2016-08-25 13:17 | NUR ---
PT RESTING QUIETLY IN BED WITH NO DISTRESS NOTED VOICES ALL NEEDS TO STAFF CALL LIGHT IN REACH SIDE RAILS UP X 2
[2016-08-25 15:36] VITALS: BP 140/54
--- NOTE | 2016-08-25 18:43 | NUR ---
PT WITH NO DISTRESS NOTED DENIES NAUSEA AFTER ZOFRAN DRIP INITAIATED. PAIN MANAGED PER BRIQUETTING MACHINE OPERATOR.
--- NOTE | 2016-08-25 19:10 | NUR ---
BEDSIDE REPORT RECEIVED AND CARE OF PT ASSUMED. PT SITTING UP IN SEMI GRAYSON'S POSITION VISITING WITH FAMILY MEMBERS. IV IN LEFT FA PATENT WITH NS INFUSING AT 75 ML / HR; PROCALAMINE INFUSING AT 50 ML / HR., ZOFRAN INFUSING AT 4.7 ML/ HR., AND A DILAUDID SOCIAL SCIENCE MANAGER IN USE FOR PAIN CONTROL. DRESSINGS ON ABDOMEN CLEAN, DRY AND INTACT. BATEMAN CATHETER DRAINING TO GRAVITY WITH YELLOW URINE IN COLLECTION BAG. SCD'S IN USE ON BLE. WILL MONITOR CLOSELY FOR NEEDS.
[2016-08-25 20:00] VITALS: BP 127/58
--- NOTE | 2016-08-25 20:22 | NUR ---
HS MEDICATIONS GIVEN. FAMILY MEMBERS ARE AT BEDSIDE.
--- NOTE | 2016-08-25 21:35 | NUR ---
GAVE INCENTIVE INSPIROMETER AND TEACHING DONE ON USE. PT RETURNED DEMONSTRATION.
--- NOTE | 2016-08-25 22:33 | NUR ---
DISCUSSED DIET WITH PT'S MOTHER, AND OK'D PT TO SUCK ON HARD CANDIES FOR MOUTH DRYNESS. GAVE NEW CUP OF ICE CHIPS. WILL CONTINUE TO MONITOR FOR NEEDS.
[2016-08-26] VITALS: BP 123/53
[2016-08-26 04:00] VITALS: BP 123/76
--- NOTE | 2016-08-26 07:30 | NUR ---
PT AWAKE AND ALERT ORINETD X 3 LUNGS CLEAR BILAT BSA ABSENT LAP SITES X [address] DRESSING IN PL[address]. CLEAN DRY AND INTACT. PT WITH NO COMLAINT OF PAIN OR DISCOMFORT THIS AM. BATEMAN PATENT TO YELLOW GREEN URINE.
[2016-08-26 09:19] VITALS: BP 117/65
--- NOTE | 2016-08-26 09:55 | NUR ---
REMAINS IN BED AT THIS TIME. FAMILY AT BEDSIDE. IV INFUSING WITH NO S/S OF INFILTRATION PRESENT. CALL LIGHT IN REACH, WILL CONTINUE WITH PLAN OF CARE.
--- NOTE | 2016-08-26 10:28 | NUR ---
Patient Name: DANITZA MELENDREZ Admission Status: Elective Accout number: [id number] Admission Date: 08-24-2016 : 1990 Admission Diagnosis: Attending: JAVIER Current LOS: 2 Anticipated DC Date: 08-29-2016 Planned Disposition: Home Primary Insurance: edupristine [facility] Discharge Planning Comments: CM met with patient and mother (Geeta) [phone] to assess discharge planning/needs. Patient lives independently, but will go to his mothers house for a couple of weeks till he thinks he can go home by himself. His mother will drive him home. Patient denies any steps at home and that it is a safe place to return too. Patient and mother denies any other discharge planning needs at this time. CM will continue to follow and assist as needed with discharge planning/needs. PCP: [facility]: [facility] [address] Geeta Augustine: (mother) [phone] Child Development Specialist: Penelope Aguilar * Is the patient Alert and Oriented? Yes 0 * How many steps to enter\exit or inside your home? 0 0 * PCP [facility] 0 * Pharmacy [facility] [address] 0 * Preadmission Environment Home with Family 0 * ADLs Independent 0 * Equipment None 0 * List name and contact numbers for known caregivers / representatives who currently or will assist patient after discharge: Geeta Augustine (mom) [phone] 0 * Community resources currently utilized None 0 * Additional services required to return to the preadmission environment? No 0 * Can the patient safely return to the preadmission environment? Yes 0 * Has this patient been hospitalized within the prior 30 days at any hospital? No 0 Grand Total: 0
[2016-08-26 12:45] VITALS: BP 104/63
[2016-08-26 16:45] VITALS: BP 116/66
--- NOTE | 2016-08-26 19:20 | NUR ---
ALERT/AWAKE. VERY QUIET, LOOKS ILL. RATES PAIN LEVEL AT 8 ON 0-10 PAIN SCALE. HAS CANDY SEPARATOR HARD WITH DILAUDID FOR PAIN CONTROL. L FA IV INTACT/PATENT. LOWER ABD DRSG C/D/I. BATEMAN INTACT/PATENT WITH YELLOW URINE DRAINING. NO NEEDS VOICED. FAMILY PRESENT IN ROOM.
[2016-08-26 20:00] VITALS: BP 137/56
--- NOTE | 2016-08-26 21:10 | NUR ---
C/O NAUSEA. ADMIN ZOFRAN IV PRN AND SCHED PEPCID 40 MG IV. RATES PAIN LEVEL OF ABD AT 6 ON NUMBER SCALE, DESCRIBED SHARP PAINS. WILL CONT TO MONITOR CLOSELY.
--- NOTE | 2016-08-26 22:00 | NUR ---
RESTING WITH EYES CLOSED. RR EVEN U/L. NO S/S OF PAIN OR DISCOMFORT. HIS MOTHER IS PRESENT IN ROOM. STATED SHORTLY AFTER LAST DOSE OF ZOFRAN HE WENT TO SLEEP.
[2016-08-27] VITALS: BP 115/59
--- NOTE | 2016-08-27 03:19 | NUR ---
AWAKE. STATE "NO" TO INQUIRY ABOUT ANY NEEDS OR DISCOMFORTS. HIS MOTHER IS PRESENT IN ROOM.
[2016-08-27 04:00] VITALS: BP 103/62
--- NOTE | 2016-08-27 07:00 | NUR ---
PT REC'D FROM ELOISE WOLFE. RESTING IN BED WITH FAMILY AT BEDSIDE. AAOX4. IV TO L FOREARM FREE OF REDNESS AND SWELLING. DRESSING TO SUPRAPUBIC AREA CDI. X5 LAP SITES WITH BANDAIDS CLEAN, DRY, AND INTACT. RATING CURRENT PAIN AT INCISION SITES 5/10. DILAUDID INCLUSION INTERN PUMP IN USE. BATEMAN CATHETER DRAINING CLEAR, YELLOW URINE. BED LOW, CALL LIGHT IN REACH, DENIES NEEDS. CPOC.
--- NOTE | 2016-08-27 07:04 | NUR ---
ADMIN ZOFRAN IV PRN FOR C/O NAUSEA. RATES ABD PAIN LEVEL AT 6 ON 0-10 SCALE. ABD IS FIRM. COULD NOT AUSCULTATE ANY BOWEL SOUNDS.
[2016-08-27 07:49] VITALS: BP 117/63
[2016-08-27 09:00] LABS: BASOPHILS 0.2 % (0-2); EOSINOPHILS 1.7 % (0-7); HEMATOCRIT 38.6 % (42.0-54.0); HEMOGLOBIN 13.6 g/dL (13.5-17.5); IMMATURE GRANULOCYTES 0.2 % (0-5); LYMPHOCYTES 11.4 % (15-50); MCH 31.2 pg (26.0-34.0); MCHC 35.2 g/dL (31.0-37.0); MCV 88.5 fL (80.0-100.0); MEAN PLATELET VOLUME 10.3 fL (7.4-10.4); MONOCYTES 11.2 % (2-11); NEUTROPHILS 75.3 % (40-80); PLATELET COUNT 260 10x3/uL (130-400); RBC 4.36 10x6/uL (4.20-6.10); RDW 12.1 % (11.5-14.5); WBC 8.1 10x3/uL (4.8-10.8)
--- NOTE | 2016-08-27 09:05 | NUR ---
IV PEPCID ADMINISTERED AT THIS TIME. TOLERATED WELL. BED LOW, CALL LIGHT IN REACH, DENIES NEEDS. CPOC.
[2016-08-27 09:16] LABS: ALBUMIN 2.6 g/dL (3.4-5.0); ALKALINE PHOSPHATASE 63 U/L (46-116); ALT (SGPT) 24 U/L (10-68); BILIRUBIN - TOTAL 0.58 mg/dL (0.2-1.3); CALC OSMOLALITY 269 mosm/kg (275-300); CALCIUM 9.2 mg/dL (8.5-10.1); CARBON DIOXIDE 30.2 mmol/L (21.0-32.0); CHLORIDE - SERUM 99 mmol/L (98-107); CREATININE - SERUM 1.2 mg/dL (0.6-1.3); POTASSIUM - SERUM 4.2 mmol/L (3.5-5.1); PROTEIN - SERUM 6.5 g/dL (6.4-8.2); SODIUM 135 mmol/L (136-145); UREA NITROGEN 13 mg/dL (7-18); eGFR NON AFRICAN AMERICAN 80 mL/min (90-120)
[2016-08-27 09:23] LABS: GLUCOSE 102 mg/dL (74-106)
--- NOTE | 2016-08-27 11:37 | NUR ---
PT UP WALKING WITH PT. DILAUDID AGRONOMY MANAGER DISCONNECTED ACCIDENTLY WHEN BUMPED BY PT.RESTARTED AT THIS TIME. RETURNED TO CHAIR AT BEDSIDE. CALL LIGHT IN REACH, DENIES NEEDS. CPOC.
--- NOTE | 2016-08-27 11:49 | NUR ---
PT TRANSFERRED BACK TO BED. TOLERATED WELL. REPOSITIONED UP IN BED. BED LOW, CALL LIGHT IN REACH, DENIES NEEDS. CPOC.
[2016-08-27 12:18] VITALS: BP 115/56
[2016-08-27 14:43] VITALS: BP 107/64
--- NOTE | 2016-08-27 16:10 | NUR ---
PT FEELING NAUSEOUS. PRN ZOFRAN ADMINISTERED, NEW BAG FOR ZOFRAN DRIP HUNG, AND SCHEDULED REGLAN ADMINISTERED AT THIS TIME. WILL REASSESS. PT THINKS IT IS THE PAIN MEDICATION. EXPLAINED THAT DILAUDID CAN BE "HARD" ON ONES STOMACH, BUT HE IS RECEIVING A LOW DOSE CURRENTLY. BED LOW, CALL LIGHT IN REACH, DENIES NEEDS. CPOC.
--- NOTE | 2016-08-27 16:30 | NUR ---
PT AOX4 RESP EVEN AND NONLABORED PT DENIES NEED AT THIS TIME. IV TO LEFT FOREARM PATENT AND INTACT. PT HERE FOR CHRONIC CONSTIPATION THIS VISIT. SRX2 BED AT LOWEST SETTING WILL CONTINUE TO MONITOR
--- NOTE | 2016-08-27 17:22 | NUR ---
FEELING ANXIOUS AND RESTLESS. CURRENT VSS. BP 133/78, PULSE 88, AND CURRENT O2 SAT 99% ON RA. ENCOURAGED PT TO USE PRESIDENT SALES AND MARKETING DUE TO 7/10 ABD PAIN. FAN PROVIDED TO HELP CIRRCULATE AIR AND COOL ROOM. BED LOW, CALL LIGHT IN REACH, DENIES NEEDS. CPOC.
--- NOTE | 2016-08-27 19:57 | NUR ---
rec'd. supine position eyes closed resp. deep and even mother at bed side.abd. mildly distended but palable with hypoactive bowel sounds all quad.states has not passed any flatus yet. encouraged incent. andre. at intervals refuses scd's at present time. puente patent and draining concentrated urine will continue to monitor for any chges and follow current plan of care
[2016-08-27 20:00] VITALS: BP 119/87
[2016-08-28] VITALS: BP 129/74
--- NOTE | 2016-08-28 02:48 | NUR ---
PT IS AWAKE AND FAMILY IS AT THE BEDSIDE. HE IS VERY UNCOMFORTABLE. C/O INDIGESTION. WASTE WATER OPERATOR IS BEING USED FOR PAIN CONTROL BUT HIS COMPLAINTS SEEM MORE RELATED TO GAS AND INDIGESTION. HE HAS A ZOFRAN DRIP AND IS GETTIN PEPCID AND REGLAN ROUTINE. TALKED WITH PT'S NURSE ABOUT ANYTHING WE COULD DO BUT THE MD HAS BE CONTACTED AND PRIOR ORDERS DONE. WILL HAVE AM NURSE TALK WITH MD ABOUT ANY CHANGES THAT WILL HELP HIM.
[2016-08-28 04:00] VITALS: BP 99/46
--- NOTE | 2016-08-28 07:05 | NUR ---
PT REC'D FROM BELEN PARKER. RESTING IN BED WITH MOM AT BEDSIDE. AAOX4. PIV TO L FA FREE OF REDNESS AND SWELLING. STATED HE HAD A "ROUGH NIGHT" AND WAS SICK AND THROWING UP, BUT FEELS A LITTLE BETTER THIS AM. DRESSING TO SUPRAPUBIC AREA CDI, AND X5 BANDAIDS TO LAPSITES CDI WELL. BOWEL SOUNDS ABSENT TO R LOWER AND UPPER QUADRANT. HYPOACTIVE TO L UPPER AND LOWER QUADS. BATEMAN CATHETER DRAINING CLEAR YELLOW URINE TO GRAVITY. SCOP PATCH TO ABD. BED LOW, CALL LIGHT IN REACH, DENIES NEEDS. CPOC.
[2016-08-28 08:06] LABS: BASOPHILS 0.1 % (0-2); EOSINOPHILS 0.3 % (0-7); HEMATOCRIT 40.7 % (42.0-54.0); HEMOGLOBIN 14.3 g/dL (13.5-17.5); IMMATURE GRANULOCYTES 0.3 % (0-5); LYMPHOCYTES 12.3 % (15-50); MCHC 35.1 g/dL (31.0-37.0); MCV 88.3 fL (80.0-100.0); MEAN PLATELET VOLUME 10.2 fL (7.4-10.4); MONOCYTES 12.7 % (2-11); NEUTROPHILS 74.3 % (40-80); RBC 4.61 10x6/uL (4.20-6.10); RDW 12.3 % (11.5-14.5); WBC 9.5 10x3/uL (4.8-10.8)
[2016-08-28 08:12] LABS: ALBUMIN 2.8 g/dL (3.4-5.0); ALKALINE PHOSPHATASE 59 U/L (46-116); ALT (SGPT) 23 U/L (10-68); BILIRUBIN - TOTAL 0.53 mg/dL (0.2-1.3); CALC OSMOLALITY 271 mosm/kg (275-300); CALCIUM 9.1 mg/dL (8.5-10.1); CARBON DIOXIDE 27.3 mmol/L (21.0-32.0); CHLORIDE - SERUM 101 mmol/L (98-107); CREATININE - SERUM 1.1 mg/dL (0.6-1.3); GLUCOSE 124 mg/dL (74-106); POTASSIUM - SERUM 4.3 mmol/L (3.5-5.1); PROTEIN - SERUM 6.8 g/dL (6.4-8.2); SODIUM 135 mmol/L (136-145); UREA NITROGEN 15 mg/dL (7-18); eGFR NON AFRICAN AMERICAN 88 mL/min (90-120)
[2016-08-28 08:14] LABS: PLATELET COUNT 341 10x3/uL (130-400)
[2016-08-28 08:23] VITALS: BP 106/76
--- NOTE | 2016-08-28 11:10 | NUR ---
FAMILY AT BEDSIDE. REPORTS THAT PATIENT HAS BEEN VOMITING TODAY. DR STEELE WAS AWARE AND CHANGED SOME MEDICATION. PATIENT RESTING QUIETLY WITH EYES CLOSED. RESP EVEN,NONLABORED.
[2016-08-28 12:55] VITALS: BP 115/77
[2016-08-28 15:29] VITALS: BP 136/75
[2016-08-28 19:00] VITALS: BP 110/68
--- NOTE | 2016-08-28 19:00 | NUR ---
PATIENT IN BED RESTING WITH EYES CLOSED. AROUSES TO VOICE. HOB 30 DEGREES. RR EVEN AND UNLABORED. 0 S/S OF DISTRESS. STATES PAIN IS A 5/10. IV TO LEFT FA PATENT WITH NO SWELLING. DRESSINGS TO ABD CDI. SCD'S IN ROOM BUT OFF. FAMILY AT BEDSIDE. SRX2. BED LOW. CALL LIGHT WITHIN REACH.
--- NOTE | 2016-08-28 21:30 | NUR ---
PATIENT AMBULATED IN QUINN AND IS NOW BACK IN BED. NIGHTTIME MEDICATIONS ADMINISTERED. NO OTHER NEEDS AT THIS TIME.
[2016-08-29] VITALS: BP 102/70
[2016-08-29 04:00] VITALS: BP 126/70
--- NOTE | 2016-08-29 06:12 | NUR ---
PATIENT SITTING UP IN CHAIR. MORNING MEDICATION ADMINISTERED. DENIES NEEDS AT THIS TIME.
[2016-08-29 07:45] VITALS: BP 115/65
--- NOTE | 2016-08-29 09:00 | NUR ---
ASSISTED PATIENT UP TO THE CHAIR. CALL LIGHT IN REACH. PATIENT DENIES NEEDS.
[2016-08-29 11:26] VITALS: BP 112/66
--- NOTE | 2016-08-29 12:14 | NUR ---
NUTRITION MONITORING & EVAL CHART REVIEWED. PT REMAINS NPO. PROCALAMINE @ 50 CC/HR. WILL MONITOR DIET ADVANCEMENT. RD FOLLOWING
--- NOTE | 2016-08-29 14:56 | NUR ---
PATIENT VOMITED, 25ML OF WATER THIN GREEN-YELLOW LIQUID. ADMINISTERED PHENERGAN IM. SISTER AND ANOTHER NURSE IN PATIENT'S ROOM ASSISTING PATIENT FROM THE CHAIR BACK TO BED.
[2016-08-29 16:38] VITALS: BP 105/62
--- NOTE | 2016-08-29 19:00 | NUR ---
PATIENT SITTING UP IN CHAIR. AAOX4. RR EVEN AND UNLABORED. 0 S/S OF DISTRESS. STATES PAIN IS A 5/10. IV TO LEFT FA PATENT WITH NO REDNESS OR SWELLING. DRESSINGS TO ABD CDI. FAMILY AT BEDSIDE. CALL LIGHT WITHIN REACH.
[2016-08-29 20:00] VITALS: BP 102/64
--- NOTE | 2016-08-29 22:00 | NUR ---
PATIENT BACK IN BED RESTING WITH EYES CLOSED. NIGHTTIME MEDICATIONS ADMINISTERED. NO OTHER NEEDS AT THIS TIME.
[2016-08-30] VITALS: BP 108/62
[2016-08-30 09:03] VITALS: BP 119/63
[2016-08-30 12:39] VITALS: BP 100/53
[2016-08-30 15:08] VITALS: BP 127/63
[2016-08-30 20:00] VITALS: BP 125/67
[2016-08-31 04:00] VITALS: BP 114/62
--- NOTE | 2016-08-31 04:46 | NUR ---
SWELLING NOTED AT IV SITE. ELOISE CHOPRA RESITED PATIENT'S IV IN HIS LEFT HAND WITH A 20G NEEDLE ON THE FIRST ATTEMPT. PATIENT'S BED IN LOWEST POSITION AND CALL LIGHT WITHIN REACH. PATIENT DENIES OTHER NEEDS AT THIS TIME.
[2016-08-31 08:59] VITALS: BP 105/62
--- NOTE | 2016-08-31 10:54 | NUR ---
TURNED OFF ZOFRAN DRIP AND PROCALAMINE
--- NOTE | 2016-08-31 12:15 | NUR ---
PATIENT AMBULATING IN THE QUINN INDEPENDENTLY.
[2016-08-31 13:22] VITALS: BP 110/64
[2016-08-31 16:29] VITALS: BP 111/72
--- NOTE | 2016-08-31 20:00 | NUR ---
SPOKE WITH THE PATIENT AND INFORMED HIM THAT WITH HIS CONSENT, HE WOULD BE TRANS DOWN TO [facility]. PATIENT STATED THAT IT WAS OK.
--- NOTE | 2016-08-31 20:04 | NUR ---
PATIENT RESTING IN BED WITH FAMILY AT BEDSIDE AND DENIES NEEDS AT THIS TIME. BED IN LOWEST POSITION AND CALL LIGHT WITHIN REACH. ENCOURAGED THE PATIENT TO CALL IF HE HAS NEEDS.
--- NOTE | 2016-08-31 20:23 | NUR ---
SPOKE WITH JAMES, SOLAR INSTALLATION TECHNICIAN AND SHE STATED THAT PATIENT SHOULD BE TRANS TO [facility] ROOM 19.
--- NOTE | 2016-08-31 21:20 | NUR ---
RECEIVED PT FROM [facility] VIA WHEELCHAIR TO ROOM 1219. REPORT GIVEN BY ELOISE MARTINEZ. STATUS 7DAYS POST COLECTOMY. INTRODUCED SELF. ORIENTED TO ROOM AND BED CONTROLS.
--- NOTE | 2016-09-01 00:30 | NUR ---
EYES CLOSED. LEFT UNDISTURBED.
--- NOTE | 2016-09-01 03:30 | NUR ---
APPEARS TO BE ASLEEP.
--- NOTE | 2016-09-01 05:38 | NUR ---
SLEPT FAIRLY WELL DURING THE NIGHT. CONTINUING PLAN OF CARE. ANTICIPATES DISCHARGE TODAY.
--- NOTE | 2016-09-01 07:00 | NUR ---
THIS RN AND Kailey ZAPATA RN TO BEDSIDE FOR BEDSIDE SHIFT REPORT. PT CURRENTLY RESTING QUIETLY W/EYES CLOSED. RESP EVEN. PT LEFT UNDISTURBED AT THIS TIME.
--- NOTE | 2016-09-01 07:30 | NUR ---
BREAKFAST TRAY SERVED.
[2016-09-01 08:30] VITALS: BP 149/61
--- NOTE | 2016-09-01 08:30 | NUR ---
THIS RN TO BEDSIDE FOR SHIFT ASSESSMENT. PT CURRENTLY LYING IN BED AWAKE. PAIN ASSESSED. PT REPORTS LOWER ABD PAIN AT INCISION SITE/ RATES PAIN 11/03. PT ORDERS REVIEWED. NO PAIN MEDICATION ORDERED AT THIS TIME. PT INFORMED. MD TO BE CALLED FOR ORDER. SEE FLOW SHEET FOR SHIFT ASSESSMENT DOC. PT HAS NOT EATEN BREAKFAST TRAY. REPORTS NO APPETITE. MOTHER AT PT'S SIDE.
[2016-09-01] MEDS ORDERED: HYDROCODON-ACE1 EAC7 PO (08:59)
--- NOTE | 2016-09-01 09:11 | NUR ---
DR SWANSON PAGED TO REQUEST A ONE TIME ORDER FOR PAIN MEDICATION.
--- NOTE | 2016-09-01 09:14 | NUR ---
DR STEELE RETURNS PAGE. INFORMED OF PT'S REQUEST FOR PAIN MEDICATION. STATES HE WILL BE TO UNIT TO ORDER PAIN MEDICATION.
--- NOTE | 2016-09-01 10:44 | NUR ---
THIS RN TO ROOM. ZOFRAN 4MG GIVEN SIVP TO RELIEVE NAUSEA CAUSED BY PT MEDICATION. NORCO 10/325MG GIVEN PO. PT RATES PAIN 8/10 AT THIS TIME.
--- NOTE | 2016-09-01 11:33 | NUR ---
ROUNDS MADE FOR PAIN REEVALE. PT IN HIGH GRAYSON'S AWAKE TALKING W/HIS MOTHER. PT RATES PAIN 6/10. NO NEEDS VOICED AT THISTIME.
--- NOTE | 2016-09-01 12:00 | NUR ---
THIS RN TO BEDSIDE FOR DISCHARGE TEACHING. DISCHARGE PAPERS W/DI INSTRUCTIONS FOR TOTAL COLECTOMY REVIEWED W/PT. COPY PROVIDED FOR PT. PRESCRIPTION FOR NORCO 5/325MG TOT ANA 1-2 TABS Q 4HRS FOR PAIN PROVIDED. QUESTIONS ANSWERED. PT READY FOR DISCHARGE. SALINE LOCKED REMOVED. SITE WNL. BAND AID PLACED OVER SITE. PT TO RING CALL LIGHT WHEN HE IS DRESSED AND READY FOR DISCHARGE. PT'S MOTHER REMAINS AT BEDSIDE.
[2016-09-01 12:15] VITALS: BP 130/61
--- NOTE | 2016-09-01 12:15 | NUR ---
PT RINGS CALL LIGHT. PT READY FOR DISCHARGE. PT DISCHARGED HOME AT THIS TIME. TRANSPORTED VIA W/C TO AWAITING CARE TO BE DRIVEN HOME BY HIS MOTHER. PT HAS FOLLOW APPT W/DR SANCHEZ ON 09/20/16 @ 048. PT HAS APPT ON DISCHARGE PAPERS.
--- NOTE | 2016-09-13 10:04 | HP ---
PATIENT: DANITZA MELENDREZ IV MEDICAL RECORD: [id number] ACCOUNT: [id number] LOCATION:[facility] : 92 ADMISSION DATE: 08/24/16 HISTORY AND PHYSICAL EXAMINATION CHIEF COMPLAINT: Constipation. HISTORY OF PRESENT ILLNESS: The patient has had intractable constipation. This has required disimpactions, enemas, as well as a number of different medications for him to have bowel movements. He has bowel movements less than 1 week. He is here for hand-assisted laparoscopic subtotal colectomy, possible colostomy, possible open procedure. SOCIAL HISTORY: Nonsmoker. PAST MEDICAL AND SURGICAL HISTORY: Other than constipation, none. HOME MEDICATIONS: Includes Amitiza and Zofran. ALLERGIES: No known drug allergies. REVIEW OF SYSTEMS: Negative for CVA or seizures. Negative for diabetes or thyroid problems. PHYSICAL EXAMINATION: GENERAL: The patient does not appear acutely ill. He does not appear chronically ill. VITAL SIGNS: Reviewed. HEAD: External ears appear normal. EYES: Extraocular movements are intact. NECK: Trachea is midline. CHEST: No intercostal retractions. PULMONARY: Nonlabored, no stridor. ABDOMEN: Nontender. IMPRESSION: Severe chronic intractable constipation. PLAN: We will be subtotal colectomy. TRANSINT:[id number] Voice Confirmation ID: [id number] DOCUMENT ID: [id number] DANITZA SANCHEZ MD at 1004 CC: CARIN ABAD DO [id number] DICTATION DATE: 08/24/161906 BROADCAST TECHNICIAN: 08/24/[id number] DIS IN 09/01/16 [facility] [address] [id number]
--- NOTE | 2016-09-13 10:04 | OP ---
PATIENT NAME: DANITZA MELENDREZ IV MEDICAL RECORD: [id number] :89 LOCATION:[facility] [id number] ADMISSION DATE:08/24/16 SURGEON: DANITZA SANCHEZ MD DATE OF OPERATION: 08/24/2016 PREOPERATIVE DIAGNOSIS: Severe chronic worsening constipation. POSTOPERATIVE DIAGNOSIS: Severe chronic worsening constipation. PROCEDURE: Hand-assisted laparoscopic surgery, subtotal colectomy. SURGEON: Danitza Sanchez MD FLASK CLEANER: None. BLOOD LOSS: Minimal. COMPLICATIONS: None. The risks, possible complications and alternatives to procedure were explained to the patient. He elects to proceed. OPERATIVE COURSE: The patient was conveyed to the operating room electively on 08/24/2016. General anesthesia was induced by the anesthesia staff. The abdomen was sterilely prepped and draped. An incision was accomplished within the umbilicus. Sharp dissection was carried down through the skin and subcutaneous tissue to a small umbilical hernia. I cleaned a surrounding connective tissue from the hernia defect. A horizontal mattress of 0 Vicryl suture was placed around the hernia defect. Through the hernia defect, a 12-mm trocar was placed. CO2 insufflation was begun. Once a sufficient pneumoperitoneum had been achieved, I began my dissection. There were adhesions in the left upper quadrant as well as the right upper quadrant. Four trocars were inserted. These were 5-mm trocars. Two were inserted in the right side of the abdomen, 2 in the left side of the abdomen. I incised along both white line of Toldt. I took down the splenic flexure. This was all done with the Harmonic scalpel. I entered the lesser sac. I incised the retroperitoneal attachments to the hepatic flexure. I then placed the GelPort. This was done through essentially a Pfannenstiel incision, a transverse incision 2 fingerbreadths above the pubic symphysis. Sharp dissection was carried down through skin and subcutaneous tissue as well as Alejandra fascia and the anterior fascia of the external oblique. The peritoneal cavity was entered sharply. The GelPort device was inserted. Utilizing a GelPort device in my hand, I continue with my dissection on the left side of the abdomen. I was then able to exteriorize the rectosigmoid junction. A finger dissection through the mesentery created a window where I can place a CHRISTY-75 stapler. I stapled across the junction of the sigmoid colon and the rectum. The rectum was huge. I incised the retroperitoneum. I examined the left ureter, which was undamaged during the entire operation. I exteriorized the sigmoid colon as well as most of the descending colon. I stapled across the descending colon. In this patient's case due to the very long, tortuous dilated colon and the colon was removed in 4 sections. On the right side of the abdomen, I was able to exteriorize most of the right colon. I took down the mesentery of the right colon with the Harmonic scalpel. OPERATIVE REPORT [id number] DANITZA MELENDREZ IV All mesenteric dissection and cautery was done with the Harmonic scalpel. I stapled the colon at the junction of the hepatic flexure and the ascending colon with a CHRISTY-75 stapler. It was removed. I then stapled across the transverse colon in the midline with a CHRISTY-75 stapler. I then went back to a hand-assisted approach. I was able to mobilize the rest of the splenic flexure and divided the mesenteric attachments. The splenic flexure was removed. I then went and took down the proximal transverse colon. The retroperitoneal attachments and mesentery were taken down with the Harmonic scalpel. I examined the stomach and it was undamaged. The spleen was undamaged. I kocherized the portion of the duodenum, it was undamaged. There was no injury to the small bowel that I could identify. I took off the top of the GelPort. I ran the small bowel. It appeared undamaged. The small bowel and the rectum were placed in apposition side by side. They were kept in place with some 3-0 Vicryls. A small enterotomy and small proctotomy were accomplished. The anvils of the CHRISTY-75 stapler were advanced down through the proctotomy and enterotomy. I then fired the CHRISTY-75 stapler. I then reinforced the anastomosis from the inside on the posterior wall with a running 4-0 Monocryl. The resolving enterorectal defect was closed with a single firing of a TA 60 stapler. I oversewed the staple line with imbricating 3-0 Vicryls. I ensured the small bowel was not twisted on its mesentery. I irrigated with normal saline. I aspirated. There was no bleeding. I incised the retroperitoneum on both sides and examined the ureter. I examined it from the bladder to the kidney and there was no damage to either ureter. I reperitonealized through the lower incision with a running #1 Vicryl. The rectus abdominis muscles were approximated with interrupted horizontal mattress #1 Vicryls. The anterior fascia was closed with running #1 Vicryls. The subdermis was approximated with interrupted 3-0 Vicryls. The skin was approximated with a running intracuticular 4-0 Vicryl. At the umbilicus, I tied down my horizontal mattress suture. I closed the skin with interrupted 4-0 Vicryl Rapide sutures. The 4 trocar sites were closed with intracuticular 3-0 Vicryls. Benzoin and Steri-Strips were applied. The patient was then extubated and conveyed to post-anesthesia care unit where he was in stable condition. TRANSINT:[id number] Voice Confirmation ID: [id number] DOCUMENT ID: [id number] DANITZA SANCHEZ MD at 1004 CC: LESLIE SONI DO [id number] DICTATION DATE: 08/24/161929 CENTER MACHINE OPERATOR: 08/25/16 0158 DIS IN 09/01/16 [facility] [address] [place] [address]
== END 2016-09-01 12:15 | disposition home or self-care (01) | DRG 331 ==
LOC: D.SDCHOLD 07:53 → D.MS 07:53 → D.SDCHOLD 11:00 → D.MS 19:40 → D.WS 08-31 21:26
PROVIDERS: Anesthesiology; Surgery; ADMIT Surgery
PROC: 0DTF4ZZ Resection of Right Large Intestine, Percutaneous Endoscopic Approach (ICD-10-PCS; principal; 2016-08-24 12:00)
DX: K59.09 Other constipation (principal)

== ENCOUNTER 2016-09-10 13:11 | Inpatient (IN) | payer BC ==
[~2016-09-10] VITALS: Ht 175.3 cm; Wt 66.0 kg
[~2016-09-10 13:11] MED LIST changes: +HYDROCODON-ACE1 EAC7 PO; +VIMOVO 500-201 EACH PO
[2016-09-10 14:02] LABS: BASOPHILS 0.1 % (0-2); EOSINOPHILS 1.3 % (0-7); HEMATOCRIT 37.2 % (42.0-54.0); HEMOGLOBIN 12.9 g/dL (13.5-17.5); IMMATURE GRANULOCYTES 0.3 % (0-5); LYMPHOCYTES 11.2 % (15-50); MCH 30.4 pg (26.0-34.0); MCHC 34.7 g/dL (31.0-37.0); MCV 87.7 fL (80.0-100.0); MEAN PLATELET VOLUME 9.8 fL (7.4-10.4); MONOCYTES 7.7 % (2-11); NEUTROPHILS 79.4 % (40-80); RBC 4.24 10x6/uL (4.20-6.10); RDW 12.5 % (11.5-14.5)
[2016-09-10 14:05] LABS: PLATELET COUNT 458 10x3/uL (130-400)
[2016-09-10 14:21] LABS: ALBUMIN 2.8 g/dL (3.4-5.0); ALKALINE PHOSPHATASE 65 U/L (46-116); ALT (SGPT) 21 U/L (10-68); BILIRUBIN - TOTAL 0.83 mg/dL (0.2-1.3); CALC OSMOLALITY 270 mosm/kg (275-300); CALCIUM 9.5 mg/dL (8.5-10.1); CARBON DIOXIDE 27.3 mmol/L (21.0-32.0); CHLORIDE - SERUM 96 mmol/L (98-107); CREATININE - SERUM 1.1 mg/dL (0.6-1.3); GLUCOSE 126 mg/dL (74-106); POTASSIUM - SERUM 4.4 mmol/L (3.5-5.1); PROTEIN - SERUM 7.7 g/dL (6.4-8.2); SODIUM 133 mmol/L (136-145); UREA NITROGEN 22 mg/dL (7-18); eGFR NON AFRICAN AMERICAN 88 mL/min (90-120)
[2016-09-10 15:44] LABS: APPEARANCE CLOUDY (CLEAR); BILIRUBIN NEGATIVE (NEGATIVE); COLOR AMBER (YELLOW); GLUCOSE NEGATIVE (NEGATIVE); KETONE NEGATIVE (NEGATIVE); NITRITE NEGATIVE (NEGATIVE); PROTEIN 1+ mg/dL (NEGATIVE); UROBILINOGEN NORMAL (NORMAL)
[2016-09-10 15:49] LABS: AMORPHOUS SEDIMENT <1+ /lpf (NONE SEEN); BACTERIA MANY /hpf (NONE SEEN); EPITHELIAL CELLS 0-5 /hpf (0-5); GRANULAR CAST 0-5 /lpf (NONE SEEN); HYALINE CAST 0-5 /lpf (NONE SEEN); LEUKOCYTE ESTERASE TRACE (NEGATIVE); MUCUS <1+ /lpf (NONE SEEN); RED CELLS - URINE OCC /hpf (0-5)
[2016-09-10 20:00] VITALS: BP 129/79
[2016-09-11 00:35] VITALS: BP 118/74
[2016-09-11 04:00] VITALS: BP 124/75
--- NOTE | 2016-09-11 04:05 | NUR ---
BELEN VAZQUEZ AT BEDSIDE. PATIENT HAS NO VISIBLE SIGNS OF DISTRESS. BED IN LOWEST POSITION AND CALL LIGHT WITHIN REACH.
--- NOTE | 2016-09-11 07:59 | NUR ---
GASTRIC CONTENT FROM NGT 30ML OF PINK COLORED CONTENT. NGT TUBE TAPED TO NOSE, IS APPROXIMATELY 1.5INCHES OUT OF NOSE. PATIENT REFUSES TO ALLOW ME TO ASSESS PLACEMENT OF TUBE IF IT REQUIRES TOUCHING THE TUBE. EDUCATED PATIENT ON PURPOSE OF THE TUBE. ORDERED A STAT KUB TO CHECK PLACEMENT OF TUBE.
--- NOTE | 2016-09-11 08:05 | NUR ---
PATIENT ALLOWED BY TO PUT AIR THROUGH THE NGT TO AUSCULTATE FOR PLACEMENT. DID NOT HEAR THE AIR. PER AUSCULTATION THE NGT DOES NOT SOUND LIKE IT IS IN CORRECT POSITION. APPLIED SCDS TO BILATERAL LEGS.
[2016-09-11 08:42] VITALS: BP 124/74
--- NOTE | 2016-09-11 09:07 | NUR ---
RESPIRATIONS ARE SHALLOW AND RAPID. COUNTED RESPIRATIONS FOR 1 MINUTE, 42 RESPIRATIONS IN 1 MINUTE.
[2016-09-11 11:36] VITALS: BP 122/72
[2016-09-11 15:41] VITALS: BP 116/68
[2016-09-11 16:44] LABS: MAGNESIUM - SERUM 2.1 mg/dL (1.8-2.4); PHOSPHOROUS 3.2 mg/dL (2.5-4.9)
[2016-09-11 16:45] LABS: PRE-ALBUMIN 7.5 mg/dL (18.0-35.7)
[2016-09-11 19:35] VITALS: BMI 24.1
[2016-09-11 20:00] VITALS: BP 115/66
[2016-09-12] VITALS (7 sets, daily range): BP systolic 101–128; BP diastolic 60–79; Ht 175.3 cm; Wt 66.0 kg
--- NOTE | 2016-09-12 07:35 | NUR ---
RESTING, FAMILY AT BEDSIDE, DENIES NEEDS, BED LOWEST POSITION, CALL LIGHT IN REACH, WILL CONTINUE TO MONITOR
--- NOTE | 2016-09-12 08:00 | NUR ---
PT RESTING IN BED WITH NO VISABLE SIGNS OF PAIN OR DISCOMFORT. PT DENIES PAIN AT THIS TIME. BED IN LOW POSITION AND CALL LIGHT WITHIN REACH. WILL CONTINUE TO MONITOR.
--- NOTE | 2016-09-12 19:18 | NUR ---
DOM RELIEVED ANIYA AT 1910
--- NOTE | 2016-09-12 21:16 | NUR ---
FAMILY AT BEDSIDE. GIVEN UPDATE. VSS. WILL CONTINUE TO MONITOR.
--- NOTE | 2016-09-12 22:10 | NUR ---
DR TOMAS CALLED GIVEN UPDATE. NEW ORDERS RECIEVED. WILL ADM.
--- NOTE | 2016-09-12 23:28 | NUR ---
REASSESSMENT COMPLETE PER FLOW SHEET. VSS. NO NEW CHANGES. WILL CONTINUE TO MONITOR.
[2016-09-13] VITALS (24 sets, daily range): BP systolic 93–165; BP diastolic 52–91
--- NOTE | 2016-09-13 01:00 | NUR ---
PT RESTING PEACEFULLY. BED IN LOWEST POSITION. MANAGER BIOSTATISTICS AND CALL LIGHT IN REACH. WILL CONTINUE TO MONITOR.
--- NOTE | 2016-09-13 02:13 | NUR ---
HR INCREASED. PT ANXIOUS. MOTHER AT BEDSIDE. A-LINE POSITONAL. BP READINGS BY CUFF. REMOVED 3 BLANKETS. LIGHTS OFF IN THE ROOM. BED IN LOWEST POSITION. WILL CONTINUE TO MONITOR.
--- NOTE | 2016-09-13 03:00 | NUR ---
PT SLEEPING. BED IN LOWEST POSITION. CALL LIGHT AND REWRITER BUTTON IN REACH. WILL CONTINUE TO MONITOR.
[2016-09-13 03:03] LABS: BASOPHILS 0.2 % (0-2); EOSINOPHILS 0.1 % (0-7); HEMATOCRIT 41.1 % (42.0-54.0); HEMOGLOBIN 14.1 g/dL (13.5-17.5); IMMATURE GRANULOCYTES 0.5 % (0-5); MCH 30.5 pg (26.0-34.0); MCHC 34.3 g/dL (31.0-37.0); MCV 88.8 fL (80.0-100.0); MEAN PLATELET VOLUME 9.3 fL (7.4-10.4); MONOCYTES 4.4 % (2-11); NEUTROPHILS 84.8 % (40-80); RBC 4.63 10x6/uL (4.20-6.10); RDW 12.9 % (11.5-14.5); WBC 12.2 10x3/uL (4.8-10.8)
[2016-09-13 03:08] LABS: PLATELET COUNT 334 10x3/uL (130-400)
[2016-09-13 03:16] LABS: ALBUMIN 1.6 g/dL (3.4-5.0); ALKALINE PHOSPHATASE 52 U/L (46-116); ALT (SGPT) 39 U/L (10-68); CALC OSMOLALITY 276 mosm/kg (275-300); CALCIUM 7.7 mg/dL (8.5-10.1); CARBON DIOXIDE 24.6 mmol/L (21.0-32.0); CHLORIDE - SERUM 103 mmol/L (98-107); GLUCOSE 166 mg/dL (74-106); MAGNESIUM - SERUM 1.6 mg/dL (1.8-2.4); POTASSIUM - SERUM 5.3 mmol/L (3.5-5.1); PROTEIN - SERUM 4.9 g/dL (6.4-8.2); SODIUM 135 mmol/L (136-145); UREA NITROGEN 20 mg/dL (7-18); eGFR NON AFRICAN AMERICAN > 90 mL/min (90-120)
--- NOTE | 2016-09-13 05:20 | NUR ---
PT AWAKE AND ALERT. RESPONDS WITH A HEAD NOD YES OR NO. PT SHOOK HIS HEAD YES WHEN ASKED IF HE IS IN PAIN. REMINDED HIM OF HIS MACHINE STONE POLISHER, AND HE SHOOK HIS HEAD STATING THAT HE UNDERSTANDS. PT'S MOTHER CALLED. INFORMED HER OF AM LAB RESULTS. WILL CONTINUE TO MONITOR.
--- NOTE | 2016-09-13 07:00 | NUR ---
PT SLIGHTLY DROWSY, ALERT, AND ORIENTED X4. OBEYS COMMANDS WITH NO DEFICITS. DENIES PAIN AT THIS TIME BUT IS SHOWING SIGNS OF PAIN SUCH FACIAL GRIMACING AND WITHDRAWL TO TOUCH. EXPLAINED KARATE BLACK BELT TO PT AND STATED THAT HE CAN USE IT NEEDED. SINUS TACHYCARDIA NOTED ON MONITOR. LUNG SOUNDS CLEAR BILAT. ABSENT BOWEL SOUNDS X4. STABLE O2 SAT ON 3L NC. ABDOMINAL DRESSING CDI. ILLEIOSTOMY NOTED CDI. COMPLETE SHIFT ASSESSMENT DOCUMENTED PER FLOWSHEET. PT REFUSES TO TURN ON SIDE AT THIS TIME. EXPLAINED TO HIM THAT WE NEED TO TURN TODAY TO PREVENT SORES. WILL CONTIUE TO MONITOR CLOSELY
--- NOTE | 2016-09-13 09:00 | NUR ---
FAMILY AT BEDSIDE AND UPDATE GIVEN. NO ACUTE CHANGES IN PT STATUS AT THIS TIME. DR SANCHEZ CALLED FOR LOW GRADE TEMP AND 1000MG IV TYLENOL Q6H ORDERED. WILL CONTINUE TO KIMBERLI.
--- NOTE | 2016-09-13 09:56 | NUR ---
NUTRITION MONITORING & EVAL CHART REVIEWED. PT NOW IN ICU. S/P SMALL BOWEL RESECTION, ILEOSTOMY. PROCALAMINE @ 75 CC/HR. RD FOLLOWING
--- NOTE | 2016-09-13 10:04 | HP ---
PATIENT: DANITZA MELENDREZ IV MEDICAL RECORD: [id number] ACCOUNT: [id number] LOCATION:[facility] D.2311 : 92 ADMISSION DATE: 09/10/16 HISTORY AND PHYSICAL EXAMINATION HISTORY OF PRESENT ILLNESS: At the end of last month, the patient underwent a hand-assisted laparoscopic subtotal colectomy. He did very well postoperatively. He was having some diarrhea, which is to be expected considering that he had a subtotal colectomy. The anastomosis was an ileorectostomy. The patient began having abdominal pain several days ago. It worsened yesterday. He presented to the Emergency Room. The abdominal pain has been present for about a week. He has had nausea and vomiting as well. I reviewed the CT images. They are consistent with free air as well as small bowel obstruction. I am going to plan for exploratory laparotomy. The risks, possible complications and alternatives to procedure were explained to the patient. He elects to proceed. We specifically discussed the possibility of an ileostomy or colostomy. His symptoms are severe. They are 10/10. Palpation aggravates. Nothing alleviates. PAST MEDICAL AND SURGICAL HISTORY: History of colon impactions prior to his subtotal colectomy, recent colon resection. REVIEW OF SYSTEMS: No chest pain, no cough, no dysuria, no back pain, no anemia, no frequent infections. HOME MEDICINES: Mineral oil, Amitiza, MiraLax and stool softener. ALLERGIES: No known drug allergies. SOCIAL HISTORY: Noncontributory. PHYSICAL EXAMINATION: GENERAL: The patient does not appear acutely ill. He does not appear chronically ill. VITAL SIGNS: Reviewed. HEAD: External ears appear normal. EYES: Extraocular movements are intact. NECK: Trachea is midline. CHEST: No intercostal retractions. PULMONARY: Nonlabored, no stridor. ABDOMEN: Diffusely tender. Distended. Peritonitis tympany in all quadrants. EXTREMITIES: No peripheral cyanosis. INTEGUMENT: No rash, no ulcerations. PSYCHIATRIC: Anxious affect. NEUROLOGIC: Nonfocal, no lethargy. The patient answers questions appropriately. Moves all extremities well. BACK: No thoracic kyphosis. LYMPHATICS: No lymphangitic streaking of the exposed extremities. IMPRESSION: Free air in the abdomen, peritonitis, bowel obstruction. PLAN: Exploratory laparotomy, possible ileostomy tomorrow. HISTORY AND PHYSICAL [id number] DANITZA MELENDREZ IV TRANSINT:[id number] Voice Confirmation ID: [id number] DOCUMENT ID: [id number] DANITZA SANCHEZ MD at 1004 CC: CARIN ABAD DO [id number] DICTATION DATE: 09/11/16 1449 COOK PRESSURE: 09/11/16 1511 ADM IN [facility] [address] [id number]
--- NOTE | 2016-09-13 11:00 | NUR ---
PT REPOSITIONED IN BED AND USED PILLOW TO SPLINT ABDOMEN WITH TURN. NO ACUTE CHANGES IN PT STATUS AT THIS TIME. TEMP DECREASING AFTER IV TYLENOL. WILL CONTINUE TO MONITOR
--- NOTE | 2016-09-13 13:00 | NUR ---
PT REPOSITIONED IN BED. PT USING NAVAL GUNFIRE SPOTTER NEEDED FOR PAIN. NO CHANGES FROM PREVIOUS ASSESSMENT
--- NOTE | 2016-09-13 15:30 | NUR ---
CALLED DR SANCHEZ AND HE STATES PT CAN HAVE ICE CHIPS NEEDED BUT NO SIPS OF WATER AT THIS TIME.
--- NOTE | 2016-09-13 15:59 | NUR ---
* Is the patient Alert and Oriented? Yes 0 * How many steps to enter\exit or inside your home? 0 0 * PCP Dr. Almaguer 0 * Pharmacy [facility] on [address] 0 * Preadmission Environment Home with Family 0 * ADLs Independent 0 * List name and contact numbers for known caregivers / representatives who currently or will assist patient after discharge: Mother - Geeta Augustine [phone] 0 * Additional services required to return to the preadmission environment? No 0 * Can the patient safely return to the preadmission environment? Yes 0 * Has this patient been hospitalized within the prior 30 days at any hospital? Yes 09/13/2016 14:58 DCP: Discharge Planning Patient Name: DANITZA MELENDREZ Admission Status: ER Accout number: [id number] Admission Date: 09-10-2016 : 1990 Admission Diagnosis: Attending: JAVIER Current LOS: 3 Planned Disposition: Home Primary Insurance: [employer] [facility] Discharge Planning Comments: Patient lives alone, but has been staying with his mother, Geeta. Prior to hospitalization, he was independent with all ADL's & IADL's. At ia, he will return home with his Mom. No needs identified at this time. CM will follow. Newspaper Editor: Kitty Yoder
--- NOTE | 2016-09-13 16:15 | NUR ---
DR SANCHEZ ROUNDED ON PT AND EXPLAINED PROCEDURE AND FURTHER CARE. UPDATED FAMILY AT BEDSIDE AND EXPLAINED CARE AND PLANS FOR FUTURE PROCEDURE. FAMILY VERBALIZED UNDERSTANDING. PT GIVEN ICE CHIPS PER REQUEST. NO FURTHER CHANGES AT THIS TIME. VITAL SIGNS STABLE.
--- NOTE | 2016-09-13 19:30 | NUR ---
ASSESSMENT COMPLETE. AAO. SINUS TACHYCARDIA SHOWING ON MONITOR. S1S2. SHALLOW RR; WEAK COUGH. ABD SPLINTING WHEN COUGHING. RT ABD ILEOSTOMY. RT LOWER ABD AND LT LOWER ABD LORRAINE DRAINS X2; BLOODY DRAINAGE. RT WRIST ART LINE. LEFT RADIAL PULSE +2. PEDAL PULSES PALP. DILAUDID FAMILY PSYCHOLOGIST IN USE. RT IJ CVL. PT HESITANT TO BE REPOSITIONED. C/O PAIN WITH MOVEMENT. O2 SAT 92% ON 4L NC.
--- NOTE | 2016-09-13 21:00 | NUR ---
FAMILY AT BEDSIDE. UPDATE GIVEN. QUESTIONS ANSWERED.
--- NOTE | 2016-09-13 21:34 | NUR ---
LT FOREARM PIV; INFILTRATED. D/C'D WITH CATH INTACT.
--- NOTE | 2016-09-13 23:05 | NUR ---
REASSESSMENT COMPLETE. NO CHANGES FROM PREVIOUS ASSESSMENT. VSS. NO DISTRESS NOTED. WILL CONTINUE TO MONITOR. VOICES NO NEEDS AT THIS TIME.
[2016-09-14] VITALS (24 sets, daily range): BP systolic 111–144; BP diastolic 53–83
--- NOTE | 2016-09-14 01:23 | NUR ---
PT O2 SAT DROPPED TO 84% ON 4L NC. INSTRUCTED PT TO COUGH AND DEEP BREATH. PT RR SHALLOW. UNABLE TO TAKE A DEEP BREATH; C/O PAIN. COUGH WEAK. INCENTIVE SPIROMETER PROVIDED.
--- NOTE | 2016-09-14 01:45 | NUR ---
INCENTIVE SPIROMETER IN USE; PT ABLE TO GET TO 250 ONCE. UNABLE TO TAKE A DEEP BREATH. WEAK COUGH.
--- NOTE | 2016-09-14 03:15 | NUR ---
REASSESSMENT COMPLETE. NO CHANGES FROM PREVIOUS ASSESSMENT. NO DISTRESS NOTED. CALL LIGHT IN REACH. WILL CONTINUE TO MONITOR.
--- NOTE | 2016-09-14 03:20 | NUR ---
INCENTIVE SPIROMETER IN USE. UNABLE TO TAKE A DEEP BREATH.
[2016-09-14 04:14] LABS: BASOPHILS 0.2 % (0-2); EOSINOPHILS 0.3 % (0-7); HEMATOCRIT 34.8 % (42.0-54.0); HEMOGLOBIN 11.7 g/dL (13.5-17.5); IMMATURE GRANULOCYTES 0.4 % (0-5); LYMPHOCYTES 5.7 % (15-50); MCH 30.1 pg (26.0-34.0); MCHC 33.6 g/dL (31.0-37.0); MCV 89.5 fL (80.0-100.0); MEAN PLATELET VOLUME 9.2 fL (7.4-10.4); MONOCYTES 9.9 % (2-11); NEUTROPHILS 83.5 % (40-80); RBC 3.89 10x6/uL (4.20-6.10); RDW 13.1 % (11.5-14.5)
[2016-09-14 04:15] LABS: PLATELET COUNT 216 10x3/uL (130-400)
[2016-09-14 04:20] LABS: CALC OSMOLALITY 273 mosm/kg (275-300); CALCIUM 7.8 mg/dL (8.5-10.1); CHLORIDE - SERUM 101 mmol/L (98-107); CREATININE - SERUM 0.8 mg/dL (0.6-1.3); GLUCOSE 131 mg/dL (74-106); POTASSIUM - SERUM 4.6 mmol/L (3.5-5.1); SODIUM 135 mmol/L (136-145); UREA NITROGEN 18 mg/dL (7-18); eGFR NON AFRICAN AMERICAN > 90 mL/min (90-120)
--- NOTE | 2016-09-14 04:50 | NUR ---
CVL DRESSING CHANGED.
--- NOTE | 2016-09-14 07:00 | NUR ---
SHIFT ASSESSMENT COMPLETE, PT ALERT, RESPIRATIONS SHALLOW, ENCOURAGED COUGH AND DEEP BREATHING AND INCENTIVE SPIROMETER USE, DENIES PAIN, NG TUBE IN PLACE, LORRAINE DRAINS WITH BLOODY DRAINAGE, ABD DRESSING CDI, CALL LIGHT WITHIN REACH WILL CONTINUE TO MONITOR
--- NOTE | 2016-09-14 09:00 | NUR ---
PT ALERT, NO CHANGES NOTED, VSS, REPOSITIONED WILL CONTINUE TO MONITOR
[2016-09-14 10:38] LABS: MAGNESIUM - SERUM 2.3 mg/dL (1.8-2.4); PHOSPHOROUS 2.3 mg/dL (2.5-4.9)
--- NOTE | 2016-09-14 10:57 | NUR ---
NUTRITION MONITORING & EVAL TPN STARTED PER MD CONSULT. MAG AND PHOS ADDED TO AM LABS X [address] FOLLOWING
--- NOTE | 2016-09-14 11:00 | NUR ---
PT ALERT, REPOSITIONED, DENIES ALL NEEDS
--- NOTE | 2016-09-14 12:53 | NUR ---
TOTAL LINEN CHANGE, BED BATH PROVIDED, UP IN CHAIR WITH PT ASSISTANCE
--- NOTE | 2016-09-14 15:00 | NUR ---
PT ALERT, ASSISTED BACK TO BED WITH THERAPY, DENIES ALL NEEDS, RESPRIATIONS SHALLOW, EDUCATED TO BREATHE DEEPLY AND COUGH, COUGH IS WEAK DESPITE ENCOURAGEMENT, USES INCENTIVE SPIROMETER WITH ENCOURAGEMENT BUT DOES NOT USE ON OWN AND TAKES VERY SHALLOW BREATHES, DISCUSSED BENEFITS OF ALL OF THE ABOVE, PT STATES UNDERSTANDING, REPOSITIONED, VSS, WILL CONTINUE TO MONITOR
--- NOTE | 2016-09-14 16:59 | NUR ---
PT ALERT, COTNIUES USING INCENTIVE SPIROMETER WITH ENCOURAGEMENT FROM STAFF AND FAMILY, PAIN MANAGED WITH BLOOD BANK COORDINATOR DENIES PAIN TO ME, REPOSITIONED, WILL CONTINUE TO MONITOR
--- NOTE | 2016-09-14 19:30 | NUR ---
ASSESSMENT COMPLETE. S1S2. AAO. SINUS TACHYCARDIA SHOWING ON MONITOR. PERRLA. RADIAL AND PEDAL PULSES PALPATED. RR SHALLOW; DIMINISHED BILATERALLY IN MID AND LOWER LOBES. INCENTIVE SPIROMETER AT BEDSIDE. WEAK COUGH. PT C/O CRAMPING IN LEFT LOWER EXTREMITY. RT IJ; PATENT; DRESSING CDI.
--- NOTE | 2016-09-14 21:00 | NUR ---
FAMILY AT BEDSIDE. UPDATE GIVEN. QUESTIONS ANSWERED.
--- NOTE | 2016-09-14 23:20 | NUR ---
REASSESSMENT COMPLETE. NO ACUTE CHANGES FROM PREVIOUS ASSESSMENT. VSS. NO DISTRESS NOTED. WILL CONTINUE TO MONITOR.
[2016-09-15] VITALS (24 sets, daily range): BP systolic 119–145; BP diastolic 65–89
--- NOTE | 2016-09-15 01:15 | NUR ---
COUGH/DEEP BREATHING EXERCISES. INCENTIVE SPIROMETER IN USE. WILL MONITOR.
--- NOTE | 2016-09-15 03:00 | NUR ---
REASSESSMENT COMPLETE. NO ACUTE CHANGES FROM PREVIOUS ASSESSMENT. VSS. NO DISTRESS NOTED. MONITORING O2 SAT CLOSELY.
--- NOTE | 2016-09-15 04:00 | NUR ---
PT O2 SAT 87% ON 4L NC; INCREASED TO 6L. SOB; DYSPNEA.
--- NOTE | 2016-09-15 04:30 | NUR ---
PT O2 SAT LOW 80'S%. UNABLE TO EFFECTIVELY COUGH OR DEEP BREATH. SHALLOW RR. PLACED ON 5L VIA OXYMIZER. O2 SAT RETURNS TO 92% AFTER A COUPLE OF MINUTES.
[2016-09-15 04:45] LABS: BASOPHILS 0.1 % (0-2); EOSINOPHILS 1.3 % (0-7); IMMATURE GRANULOCYTES 0.7 % (0-5); LYMPHOCYTES 6.4 % (15-50); MCH 30.4 pg (26.0-34.0); MCV 89.4 fL (80.0-100.0); MEAN PLATELET VOLUME 8.9 fL (7.4-10.4); MONOCYTES 6.1 % (2-11); NEUTROPHILS 85.4 % (40-80); PLATELET COUNT 258 10x3/uL (130-400); RDW 13.2 % (11.5-14.5)
[2016-09-15 04:51] LABS: HEMATOCRIT 24.4 % (42.0-54.0); HEMOGLOBIN 8.3 g/dL (13.5-17.5); RBC 2.73 10x6/uL (4.20-6.10); WBC 15.7 10x3/uL (4.8-10.8)
[2016-09-15 05:00] LABS: CALCIUM 7.1 mg/dL (8.5-10.1); CARBON DIOXIDE 28.8 mmol/L (21.0-32.0); CHLORIDE - SERUM 105 mmol/L (98-107); CREATININE - SERUM 0.6 mg/dL (0.6-1.3); GLUCOSE 121 mg/dL (74-106); PHOSPHOROUS 2.7 mg/dL (2.5-4.9); SODIUM 140 mmol/L (136-145); eGFR NON AFRICAN AMERICAN > 90 mL/min (90-120)
[2016-09-15 05:07] LABS: CALC OSMOLALITY 278 mosm/kg (275-300); MAGNESIUM - SERUM 1.5 mg/dL (1.8-2.4); POTASSIUM - SERUM 3.1 mmol/L (3.5-5.1); UREA NITROGEN 9 mg/dL (7-18)
--- NOTE | 2016-09-15 06:00 | NUR ---
FAMILY AT BEDSIDE. UPDATE GIVEN. QUESTIONS ANSWERED. VOICES NO CONCERNS AT THIS TIME
--- NOTE | 2016-09-15 07:00 | NUR ---
REPORT RECIEVED FROM HEAT TREAT INSPECTOR NURSE. ASSESSMENT COMPLETE PER FLOWSHEET. PT ALERT, RESPIRATIONS SHALLOW. ENCOURAGED TO COUGH AND DEEP BREATH AND USE INCENTIVE SPIROMETER. DENIES PAIN AT THIS TIME. VSS. NG TUBE IN L NARE TO LIS. LORRAINE DRAINS WITH SEROUSSANG DRAINAGE, ABD DRESSING CDI, OSTOMY BAG BURPED. SEROUSAND DRAINAGE NOTED WELL. SPECIAL INVESTIGATOR IN HAND. STATES HIS PAIN IS WELL CONTROLLED. CALL LIGHT IN REACH AND BED IN LOW POSITION. WILL CONT TO ASSESS.
--- NOTE | 2016-09-15 09:00 | NUR ---
AMBULATING WITH PHYSICAL THERAPY. USING IV POLE TO AIDE WITH BALANCE. MOD WEAKNESS NOTED. WALKED 86FT AND ASSISTED BACK TO RECLINER.
--- NOTE | 2016-09-15 10:35 | NUR ---
NUTRITION MONITORING & EVAL CHART REVIEWED. PT UP IN CHAIR. TPN AND LIPIDS. WILL INCREASE TPN RATE AND ADJUST ELECTROLYTES IN AM. RD FOLLOWING
--- NOTE | 2016-09-15 12:00 | NUR ---
FAMILY AT BEDSIDE. FULL LINEN CHANGE PROVIDED. MOTHER ASSISTED WITH BEDBATH.
--- NOTE | 2016-09-15 14:00 | NUR ---
SPOKE WITH DR. SANCHEZ. STATED TO REMOVE BOTH LORRAINE DRAINS, F/C, AND NGT.
--- NOTE | 2016-09-15 16:00 | NUR ---
RESTING IN BED QUIETLY. NO S/SX OF ACUTE DISTRESS NOTED AT THIS TIME. CALL LIGHT IN REACH. BED IN LOW POSITION. WILL CONT TO ASSESS.
--- NOTE | 2016-09-15 18:00 | NUR ---
VOIDED 400CC OF CLEAR YELLOW URINE POST REMOVAL OF F/C. WILL CONT TO ASSESS OUTPUT.
--- NOTE | 2016-09-15 19:30 | NUR ---
ASSESSMENT COMPLETE. S1S2. SINUS TACHYCARDIA SHOWING ON MONITORS. AAO. RR DIMINISHED BILATERALLY IN MID AND LOWER LOBES. COUGH; WEAK. INCENTIVE SPIROMETER IN USE PT REACHES 500. 2L VIA NC. O2 97%. VSS. NO DISTRESS NOTED. RADIAL AND PEDAL PULSES +2. CLAMMY SKIN.
--- NOTE | 2016-09-15 21:00 | NUR ---
FAMILY AT BEDSIDE FOR VISITATION. QUESTIONS ANSWERED. UPDATE GIVEN.
--- NOTE | 2016-09-15 22:10 | NUR ---
INCENTIVE SPIROMETER IN USE. DEEP BREATHING AND COUGH EXERCISES.
--- NOTE | 2016-09-15 23:10 | NUR ---
REASSESSMENT COMPLETE. NO ACUTE CHANGES FROM PREVIOUS ASSESSMENT. WILL CONTINUE TO MONITOR. SEE FLOW SHEET FOR DETAILS.
[2016-09-16] VITALS (24 sets, daily range): BP systolic 106–150; BP diastolic 61–80
--- NOTE | 2016-09-16 01:15 | NUR ---
PT RESTING; EYES CLOSED. VSS. NO DISTRESS NOTED. CALL LIGHT IN REACH. WILL CONTINUE TO MONITOR.
--- NOTE | 2016-09-16 03:15 | NUR ---
REASSESSMENT COMPLETE. NO ACUTE CHANGES FROM PREVIOUS ASSESSMENT. VSS. NO DISTRESS NOTED. CALL LIGHT IN REACH. WILL CONTINUE TO MONITOR.
--- NOTE | 2016-09-16 04:00 | NUR ---
400 CC OF LIQUID BM; EMPTIED FROM ILEOSTOMY.
[2016-09-16 04:09] LABS: BASOPHILS 0.2 % (0-2); EOSINOPHILS 2.7 % (0-7); HEMATOCRIT 26.2 % (42.0-54.0); HEMOGLOBIN 8.9 g/dL (13.5-17.5); IMMATURE GRANULOCYTES 2.4 % (0-5); MCH 30.3 pg (26.0-34.0); MCV 89.1 fL (80.0-100.0); MEAN PLATELET VOLUME 9.2 fL (7.4-10.4); MONOCYTES 7.7 % (2-11); RBC 2.94 10x6/uL (4.20-6.10); WBC 13.9 10x3/uL (4.8-10.8)
[2016-09-16 04:12] LABS: PLATELET COUNT 315 10x3/uL (130-400)
[2016-09-16 04:33] LABS: CALC OSMOLALITY 275 mosm/kg (275-300); CARBON DIOXIDE 31.8 mmol/L (21.0-32.0); CHLORIDE - SERUM 101 mmol/L (98-107); CREATININE - SERUM 0.7 mg/dL (0.6-1.3); GLUCOSE 127 mg/dL (74-106); MAGNESIUM - SERUM 1.8 mg/dL (1.8-2.4); POTASSIUM - SERUM 3.4 mmol/L (3.5-5.1); SODIUM 138 mmol/L (136-145); UREA NITROGEN 7 mg/dL (7-18); eGFR NON AFRICAN AMERICAN > 90 mL/min (90-120)
[2016-09-16 04:34] LABS: PHOSPHOROUS 3.7 mg/dL (2.5-4.9)
--- NOTE | 2016-09-16 05:31 | NUR ---
INCENTIVE SPIROMETER IN USE. DEEP BREATH AND COUGH EXERCISES.
--- NOTE | 2016-09-16 05:51 | NUR ---
POTASSIUM 3.4 TREATED PER ELECTROLYTE PROTOCOL. SEE EMAR FOR DETAILS.
--- NOTE | 2016-09-16 07:35 | NUR ---
UP IN BED AT THIS TIME RESTING. RESPIRATIONS EVEN AND UNLABORED. PT DENIES ANY NEEDS. NOTED 150ML BROWN COLORED LIQUID STOOL EMPTIED FROM ILEOSTOMY. NO ACUTE DISTRESS NOTED. WILL CONTINUE PLAN OF CARE.
--- NOTE | 2016-09-16 09:41 | NUR ---
UP IN CHAIR BESIDE BED AT THIS TIME VISITING WITH FAMILY AND TAKING BATH WITH ASSIST FROM MOTHER. TOTAL LINEN CHANGE PROVIDED. NO ACUTE DISTRESS NOTED. WILL CONTINUE PLAN OF CARE.
--- NOTE | 2016-09-16 09:54 | NUR ---
NUTRITION MONITORING & EVAL CHART REVIEWED. TPN RATE INCREASED, ELECTROLYTES ADJUSTED. RD FOLLOWING
--- NOTE | 2016-09-16 11:42 | NUR ---
EMPTIED 400 ML FROM ILEOSTOMY BAG AT THIS TIME. PT UP IN CHAIR BESIDE BED. NO ACUTE DISTRESS NOTED. WILL CONTINUE PLAN OF CARE.
--- NOTE | 2016-09-16 12:35 | NUR ---
PTS MOTHER ON PHONE SPEAKING WITH DR SANCHEZ AT THIS TIME. NO ACUTE DISTRESS NOTED. WILL CONTINUE PLAN OF CARE.
--- NOTE | 2016-09-16 15:35 | NUR ---
FAMILY AT BEDSIDE AT THIS TIME. NO ACUTE DISTRESS NOTED. WILL CONTINUE PLAN OF CARE.
--- NOTE | 2016-09-16 18:45 | NUR ---
DR WILEY AT BEDSIDE SPEAKING WITH PT AND FAMILY AT THIS TIME. NO ACUTE DISTRESS NOTED. WILL CONTINUE PLAN OF CARE.
--- NOTE | 2016-09-16 19:15 | NUR ---
REPORT RECIEVED, INITIAL ASSESSMENT COMPLETE, PLEASE SEE FLOW SHEETS FOR DETAILS. PT A&O X4, C/O PAIN IN ABD 07/04, USING DILAUDID DELINQUENCY PREVENTION SOCIAL WORKER PER INDTRUCTIONS AND SAYS THAT IT HELPS. ALL ABD DRESSINGS CDI. ILLIOSTOMY PRESENT, DRAINING BROWN LIQUID STOOL, GAS PRESENT. BS ACTIVE IN RUQ, LUQ ONLY. LUNG SOUNDS CLEAR BILATERALLY, RR EVEN AND UNLABORED ON ROOM AIR. PPP. S1S2 NOTED WITH NSR ON MONITOR. VSS ATT, BED LOW AND LOCKED, CALL LIGHT IN REACH. WILL CPOC.
--- NOTE | 2016-09-16 21:00 | NUR ---
PT IN BED RESTING, REPOSITIONING PROVIDED. BED LOW AND LOCKED. STATES EARLY CHILDHOOD LEAD TEACHER CONTROLING PAIN. CALL LIGHT IN REACH. VSS, WILL CPOC.
--- NOTE | 2016-09-16 21:28 | NUR ---
FAMILY IN ROOM, ANSWERED QUESTIONS. DENIES NEEDS ATT. WILL CPOC.
--- NOTE | 2016-09-16 23:00 | NUR ---
REASSESSMENT COMPLETE, PLEASE SEE FLOW SHEETS FOR DETAILS. NO CHANGES FROM PREVIOUS ASSESSMENT. DENIES ANY NEEDS ATT. BED LOW AND LOCKED, CALL LIGHT IN REACH. VSS. WILL CPOC.
[2016-09-17] VITALS (23 sets, daily range): BP systolic 101–134; BP diastolic 55–71
--- NOTE | 2016-09-17 01:00 | NUR ---
PT RESTING, DENIES PAIN/NEEDS ATT. BED LOW AND LOCKED, CALL LIGHT IN REACH. VSS, WILL CPOC.
--- NOTE | 2016-09-17 03:05 | NUR ---
REASSESSMENT COMPLETE, PLEASE SEE FLOW SHEETS FOR DETAILS. ILEOSTOMY STOMA NO LONGER CDI, THIS WAS REPLACED WELL SOILED DRESSINGS ON INCISIONS MIDLINE AND AND TRANSVERSE LOWER ABDOMEN POST CLEANING INCISIONS AND AROUND STOMA WITH IODINE SWABS. PT TOLERATED WELL, TURNING PROVIDED. DENIES ANY OTHER NEEDS ATT. STATES PAIN AT 6/10, USING LUG BREAKER AND WIRE PULLER WHEN NEEDED. VSS, BED LOW AND LOCKED, CALL LIGHT IN REACH. WILL CPOC.
[2016-09-17 04:58] LABS: BASOPHILS 0.4 % (0-2); EOSINOPHILS 3.1 % (0-7); HEMATOCRIT 26.1 % (42.0-54.0); HEMOGLOBIN 8.6 g/dL (13.5-17.5); LYMPHOCYTES 11.7 % (15-50); MCH 29.3 pg (26.0-34.0); MCV 88.8 fL (80.0-100.0); MEAN PLATELET VOLUME 9.1 fL (7.4-10.4); MONOCYTES 9.7 % (2-11); NEUTROPHILS 67.1 % (40-80); PLATELET COUNT 353 10x3/uL (130-400); RBC 2.94 10x6/uL (4.20-6.10); RDW 12.8 % (11.5-14.5); WBC 14.3 10x3/uL (4.8-10.8)
--- NOTE | 2016-09-17 05:07 | NUR ---
PT RESTING, WATCHING TV, DENIES ANY NEEDS ATT. VSS, BED LOW AND LOCKED, CALL LIGHT IN REACH. WILL CPOC.
[2016-09-17 05:20] LABS: CALC OSMOLALITY 270 mosm/kg (275-300); CALCIUM 8.4 mg/dL (8.5-10.1); CARBON DIOXIDE 30.4 mmol/L (21.0-32.0); CHLORIDE - SERUM 100 mmol/L (98-107); CREATININE - SERUM 0.8 mg/dL (0.6-1.3); GLUCOSE 125 mg/dL (74-106); MAGNESIUM - SERUM 1.7 mg/dL (1.8-2.4); PHOSPHOROUS 4.3 mg/dL (2.5-4.9); POTASSIUM - SERUM 3.7 mmol/L (3.5-5.1); SODIUM 136 mmol/L (136-145); UREA NITROGEN 8 mg/dL (7-18); VANCOMYCIN - TROUGH 3.9 ug/mL (10.0-20.0); eGFR NON AFRICAN AMERICAN > 90 mL/min (90-120)
--- NOTE | 2016-09-17 07:20 | NUR ---
LYING IN BED RESTING AT THIS TIME. NO ACUTE DISTRESS NOTED. AWAKENS EASILY WHEN STAFF STATES PT NAME. RESPIRATIONS AT STEADY AND UNLABORED RATE. WILL CONTINUE PLAN OF CARE.
--- NOTE | 2016-09-17 09:20 | NUR ---
UP WALKING WITH PHYSICAL THERAPY AT THIS TIME. NO ACUTE DISTRESS NOTED. WILL CONTINUE PLAN OF CARE.
--- NOTE | 2016-09-17 11:22 | NUR ---
UP IN CHAIR BESIDE BED WATCHING TV AT THIS TIME. DENIES ANY NEEDS. NO ACUTE DISTRESS NOTED. WILL CONTINUE PLAN OF CARE.
--- NOTE | 2016-09-17 13:23 | NUR ---
DRESSING CHANGE TO CVL AT THIS TIME. OLD DRESSING NOTED NO LONGER ADHESIVE TO SKIN. NO ACUTE DISTRESS NOTED. WILL CONTINUE PLAN OF CARE.
--- NOTE | 2016-09-17 15:24 | NUR ---
ASSISTED PT BACK TO BED AT THIS TIME. FAMILY AT BEDSIDE. NO ACUTE DISTRESS NOTED. WILL CONTINUE PLAN OF CARE.
--- NOTE | 2016-09-17 17:24 | NUR ---
ILEOSTOMY BAG NOTED TO LEAK, CHANGED AT THIS TIME. PT UP IN BED. DENIES ANY NEEDS. NO ACUTE DISTRESS NOTED. WILL CONTINUE PLAN OF CARE.
--- NOTE | 2016-09-17 19:00 | NUR ---
REPORT RECIEVED, INITIAL ASSESSMENT COMPLETE, PLEASE SEE FLOW SHEETS FOR DETAILS. PAIN 07/04, SILVER MINER IS CONTROLING PER PT. DENIES ANY NEEDS ATT. BED LOW AND LOCKED, CALL LIGHT IN REACH. VSS, WILL CPOC.
--- NOTE | 2016-09-17 20:43 | NUR ---
2029 CALLED WARDROBE TECHNICIAN ABOUT GETTING PATIENT SOME CREAM OF CHICKEN SOUP HE STATED HE DID NOT GET A DINNER TRAY HIS DIET CHANGED RIGHT BEFORE. KEO RODRIGUEZ. SAID WAS WAITING ON A CALL AND TO LOOK AROUND, WENT TO FLOORS AND LOOKED, NONE TO BE FOUND. 2041 CALL HOUSE SUP BACK TO NOTIFY I COULD NOT FIND ANY, AND ASKED NICELY IF SHE WOULD BRING SOME WHEN SHE GOT THE CHANCE AND SHE SNAPPED BACK THAT "IT'S NOT THAT IMPORTANT" AND HUNG UP THE PHONE. WILL AWAIT ARRIVAL OF SOUP AND JEANNIE PT THAT WE ARE WAITING.
--- NOTE | 2016-09-17 20:48 | NUR ---
NOTIFIED PT OF WAIT, DENIES ANY OTHER NEEDS ATT. BED LOW AND LOCKED, CALL LIGHT IN REACH. WILL CPOC.
--- NOTE | 2016-09-17 21:32 | NUR ---
PATIENTS MOTHER BROUGHT HIM SOME CREAM OF CHICKEN SOUP AND BOWLS TO EAT IT FROM. WILL HEAT UP SOME SOUP FOR PATIENT NOW.
--- NOTE | 2016-09-17 21:40 | NUR ---
PROVIDED WARM SOUP AND WARM TEA, FAMILY IN ROOM TO ASSIST PATIENT IN EATING, MOVED UP IN BED WITH ASSIST. VSS ATT, BED LOW AND LOCKED, CALL LIGHT IN REACH. WILL CPOC.
--- NOTE | 2016-09-17 22:00 | NUR ---
HOUSE SUP BROUGHT PT SOME SOUP.
--- NOTE | 2016-09-17 23:02 | NUR ---
REASSESSMENT COMPLETED ATT, PLEASE SEE FLOW SHEETS FOR DETAILS. DENIES ANY PAIN/NEEDS ATT. BED LOW AND LOCKED, CALL LIGHT IN REACH. VSS, WILL CPOC.
[2016-09-18] VITALS (24 sets, daily range): BP systolic 104–123; BP diastolic 56–76
--- NOTE | 2016-09-18 01:07 | NUR ---
PT IN BED WATCHING TV. VSS. DENIES ANY NEEDS ATT, C/O PAIN IN ABDOMEN 07/04, USING BACON SKIN LIFTER TO CONTROL. BED LOW AND LOCKED, CALL LIGHT IN REACH. WILL CPOC.
--- NOTE | 2016-09-18 03:00 | NUR ---
REASSESSMENT COMPLETE, PLEASE SEE FLOW SHEETS FOR DETAILS. DENIES PAIN/NEEDS ATT. BED LOW AND LOCKED, CALL LIGHT IN REACH. VSS ATT. TURNING PROVIDED. WILL CPOC.
--- NOTE | 2016-09-18 04:00 | NUR ---
OSTOMY APPLIANCE AND DRESSING CHANGE ON MIDLINE TRANSVERSE AND VERTICAL INCISIONS. PT TOLERATED WELL. TURNED SELF WITH LITTLE ASSISTANCE FOR PARTIAL LINEN CHANGE. VSS ATT, BED LOW AND LOCKED, CALL LIGHT IN REACH. WILL CPOC.
[2016-09-18 04:34] LABS: BASOPHILS 0.5 % (0-2); EOSINOPHILS 3.2 % (0-7); HEMATOCRIT 25.6 % (42.0-54.0); HEMOGLOBIN 8.5 g/dL (13.5-17.5); IMMATURE GRANULOCYTES 10.7 % (0-5); LYMPHOCYTES 11.9 % (15-50); MCH 29.5 pg (26.0-34.0); MCHC 33.2 g/dL (31.0-37.0); MCV 88.9 fL (80.0-100.0); MEAN PLATELET VOLUME 9.2 fL (7.4-10.4); MONOCYTES 9.7 % (2-11); PLATELET COUNT 383 10x3/uL (130-400); RBC 2.88 10x6/uL (4.20-6.10); RDW 12.9 % (11.5-14.5); WBC 16.4 10x3/uL (4.8-10.8)
[2016-09-18 04:49] LABS: CALC OSMOLALITY 265 mosm/kg (275-300); CALCIUM 8.2 mg/dL (8.5-10.1); CARBON DIOXIDE 30.4 mmol/L (21.0-32.0); CHLORIDE - SERUM 99 mmol/L (98-107); CREATININE - SERUM 0.9 mg/dL (0.6-1.3); GLUCOSE 113 mg/dL (74-106); MAGNESIUM - SERUM 1.9 mg/dL (1.8-2.4); PHOSPHOROUS 4.3 mg/dL (2.5-4.9); POTASSIUM - SERUM 4.1 mmol/L (3.5-5.1); SODIUM 133 mmol/L (136-145); UREA NITROGEN 10 mg/dL (7-18); eGFR NON AFRICAN AMERICAN > 90 mL/min (90-120)
--- NOTE | 2016-09-18 07:46 | NUR ---
UP IN BED WATCHING TV AT THIS TIME. DENEIS ANY NEEDS. NO ACUTE DISTRESS NOTED. WILL CONTINUE PLAN OF CARE.
--- NOTE | 2016-09-18 09:46 | NUR ---
UP IN CHAIR BESIDE BED AT THIS TIME, FAMILY AT BEDSIDE. NO ACUTE DISTRESS NOTED. WILL CONTINUE PLAN OF CARE.
--- NOTE | 2016-09-18 12:29 | NUR ---
SITTING UP IN CHAIR BESIDE BED AT THIS TIME. NO ACUTE DISTRESS NOTED. FAMILY IN ROOM SPEAKING WITH PT. WILL CONTINUE PLAN OF CARE.
--- NOTE | 2016-09-18 14:38 | NUR ---
ILEOSTOMY DRESSING CHANGED AT THIS TIME WELL DRESSINGS TO ABDOMEN. CLIPS WELL APPROX. NO ACUTE DISTRESS NOTED. WILL CONTINUE PLAN OF CARE.
--- NOTE | 2016-09-18 16:07 | NUR ---
NO CHANGE. NO ACUTE DISTRESS NOTED. NO LEAKING NOTED TO ILEOSTOMY BAG SITE. PT DENIES ANY NEEDS. WILL CONTINUE PLAN OF CARE.
--- NOTE | 2016-09-18 18:07 | NUR ---
LYING IN BED WATCHING TV AT THIS TIME. NO ACUTE DISTRESS NOTED. WILL CONTINUE PLAN OF CARE.
--- NOTE | 2016-09-18 19:00 | NUR ---
REPORT RECIEVED, INITIAL ASSESSMENT COMPLETE, PLEASE SEE FLOW SHEETS FOR DETAILS. PT RESTING, ILEOSTOMY EPTIED ATT AND GAS RELEASED, 100ML LIQUID BROWN LIQUID STOOL REMOVED. DRESSING ON ABD CDI. C/O PAIN 4/10 AT INCISION SITE AND STATES OPERATIONS ASSISTANT IS CONTROLING HIS PAIN TO HIS SATISFACTION. JOHN SOUNDS DIMINISHED IN LOWER LOBES BUT OTHERWISE CLEAR. S1S2 AUSCULTATED, NSR NOTED ON MONITOR. DENIES ANY OTHER NEEDS ATT. VSS, BED LOW AND LOCKED, CALL LIGHT IN REACH. WILL CPOC.
--- NOTE | 2016-09-18 20:41 | NUR ---
PAGED DR STEELE AND HE CALLED BACK IMMEDIATELY, ASKED ABOUT DILAUDID HOT KETTLE TENDER AND WHETHER OR NOT HE WANTED IT REORDERED, HE GAVE NEW ORDERS FOR NORCO 10 Q4HP PAIN AND DILAUDID 1 MG Q4HP SEVERE PAIN.
--- NOTE | 2016-09-18 21:00 | NUR ---
FAMILY IN ROOM, QUESTIONS ANSWERED TO BEST OF ABILITY, VSS ATT, BED LOW AND LOCKED, DENIES ANY NEEDS ATT. WILL CPOC.
--- NOTE | 2016-09-18 23:00 | NUR ---
REASSESSMENT COMPLETE, PLEASE SEE FLOW SHEETS FOR DETAILS. RELEASED GAS FROM ILEOSTOMY BAG, TURNED TO LEFT SIDE PER PT REQUEST. DENIES ANY PAIN ATT. BED LOW AND LOCKED, CALL LIGHT IN REACH. VSS, WILL CPOC.
[2016-09-19] VITALS (24 sets, daily range): BP systolic 95–125; BP diastolic 47–71
--- NOTE | 2016-09-19 01:00 | NUR ---
PT RESTING, VSS, GAS RELEASE FROM OSTOMY BAG, DENIES NEEDS ATT. BED LOW AND LOCKED, CALL LIGHT IN REACH. WILL CPOC.
--- NOTE | 2016-09-19 03:00 | NUR ---
REASSESSMENT COMPLETE, PLEASE SEE FLOW SHEETS FOR DETAILS. VSS, DENIES PAIN/NEEDS ATT. BED LOW AND LOCKED, CALL LIGHT IN REACH. WILL CPOC.
[2016-09-19 04:36] LABS: BASOPHILS 0.3 % (0-2); EOSINOPHILS 2.8 % (0-7); HEMATOCRIT 26.4 % (42.0-54.0); HEMOGLOBIN 8.8 g/dL (13.5-17.5); IMMATURE GRANULOCYTES 13.5 % (0-5); LYMPHOCYTES 10.7 % (15-50); MCH 29.4 pg (26.0-34.0); MCHC 33.3 g/dL (31.0-37.0); MCV 88.3 fL (80.0-100.0); MEAN PLATELET VOLUME 9.4 fL (7.4-10.4); MONOCYTES 7.2 % (2-11); NEUTROPHILS 65.5 % (40-80); PLATELET COUNT 459 10x3/uL (130-400); RBC 2.99 10x6/uL (4.20-6.10); RDW 12.8 % (11.5-14.5); WBC 17.9 10x3/uL (4.8-10.8)
[2016-09-19 04:50] LABS: CALC OSMOLALITY 267 mosm/kg (275-300); CALCIUM 8.5 mg/dL (8.5-10.1); CARBON DIOXIDE 28.9 mmol/L (21.0-32.0); CHLORIDE - SERUM 100 mmol/L (98-107); CREATININE - SERUM 0.7 mg/dL (0.6-1.3); GLUCOSE 121 mg/dL (74-106); PHOSPHOROUS 4.6 mg/dL (2.5-4.9); POTASSIUM - SERUM 4.2 mmol/L (3.5-5.1); SODIUM 134 mmol/L (136-145); UREA NITROGEN 9 mg/dL (7-18); eGFR NON AFRICAN AMERICAN > 90 mL/min (90-120)
--- NOTE | 2016-09-19 05:07 | NUR ---
ILEOSTOMY WAFER LEAKING AND BANDAGES TO INCISIONS DIRTIED. ALL BANDAGES CHANGED AND WAFER AND BAG REPLACED. PT TOLERATED WELL. DENIES ANY OTHER NEEDS ATT. BED LOW AND LOCKED, CALL LIGHT IN REACH. VSS, WILL CPOC.
--- NOTE | 2016-09-19 07:00 | NUR ---
PT AWAKE ALERT AND ORIENTED X4. PT ABLE TO SPEAK SOFTLY AND OBEY COMMANDS AT THIS TIME. NORMAL SINUS ON MONITOR. PT BREATHING STABLE ON ROOM AIR. ABDOMINAL DRESSINGS CDI. PT HAVING PAIN IN ABDOMEN FROM INCISION BUT HE STATES HE WILL WAIT FOR PAIN MEDICATION. BILAT SCDS ON LOWER EXTREMITIES. SHIFT ASSESSMENT DOCUMENTED PER FLOWSHEET. VITAL SIGNS STABLE. WILL CONTINUE TO MONITOR.
--- NOTE | 2016-09-19 09:00 | NUR ---
PT UP WITH PHYSICAL THERAPY AND ABLE TO WALK WITH MINIMAL ASSISTANCE. PT UP IN CHAIR AFTER WALK. WILL CONTINUE TO MONITOR
--- NOTE | 2016-09-19 09:53 | NUR ---
NUTRITION MONITORING & EVAL CHART REVIEWED, PT UP WALKING. TOLERATING FULL LIQUID DIET. RECOMMEND TAPER AND DC TPN AND LIPIDS WHEN TOLERATING SOFT DIET. RD FOLLOWING
--- NOTE | 2016-09-19 11:00 | NUR ---
NO ACUTE CHANGES IN PT STATUS AT THIS TIME. WILL CONTINUE TO MONITOR. PT REMAINS IN CHAIR AT THIS TIME.
--- NOTE | 2016-09-19 13:00 | NUR ---
PT GIVEN MEDICATION FOR PAIN AND IT IS NOW DECREASING. PT MOVED BACK TO BED WITH MODERATE ASSISTANCE. WOUND CARE HERE TO TEACH PT AND MOTHER HOW TO CARE FOR ILLEOSTOMY. WILL CONTINUE TO MONITOR. VITAL SIGNS STABLE.
--- NOTE | 2016-09-19 13:56 | NUR ---
WOUND CARE TEACHING/OSTOMY: PT HAD SURGERY 1 WEEK AGO. HE HAS ILEOSTOMY RLQ. MOTHER IN ROOM WITH PT. WRITTEN MATERIAL PROVIDED FOR FURTHER REFERENCE "UNDERSTANDING YOUR ILEOSTOMY" WE DISCUSSED THE 1) STOMA: ALWAYS RED AND MOIST AND NOT PAINFUL. IT WILL CHANGE SIZES (USUALLY SHRINK) FOR THE FIRST SEVERAL WEEKS AFTER SURGERY. 2) PERISTOMAL SKIN (SKIN AROUND THE STOMA). KEEP IT CLEAN AND DRY FREE OF RASHES AND/OR SORES. 3)POUCHING SYSTEMS (1 AND 2 PIECE) INSTRUCTED ON HOW TO APPLY 2 PIECE SYSTEM. -CLEAN SKIN WELL WITH SOAP AND WATER, PAT DRY -APPLY SKIN PREP -MEASURE STOMA WITH PROVIDED SIZE GUIDE AND CUT WAFER TO FIT -APPLY WAFER AND BAG 4)HOW TO "BURP" BAG, HOW TO EMPTY BAG 5)SUPPLIES/PROGRAMS AVAILABLE FOR OSTOMY PATIENTS PT AND MOTHER VOICED UNDERSTANDING. WOUND CARE WILL CONTINUE TEACHING UNTIL PT IS DC'D HOME.
--- NOTE | 2016-09-19 15:00 | NUR ---
PT SITTING UP IN BED WITH NO COMPLAINTS AT THIS TIME. USING YAUNKER FOR SUCTION INDEPENDENTLY. MODERATE SECRETIONS EXPECTORATED. PT REMAINS ON ROOM AIR WITH STABLE O2 SAT.
--- NOTE | 2016-09-19 17:00 | NUR ---
PT GIVEN WATER PER REQUEST TO DRINK. DENIES ANY FURTHER NEEDS AT THIS TIME. APPEARS COMFORTABLE. WILL CONTINUE TO MONITOR CLOSELY. VITAL SIGNS STABLE.
--- NOTE | 2016-09-19 19:20 | NUR ---
ASSESSMENT COMPLETE. S1S2. RR SHALLOW; EQUAL UNLABORED; CLEAR BILATERALLY IN UPPER LOBES; DIMINISHED BILATERALLY IN MID AND LOWER LOBES. AAO X4. RADIAL AND PEDAL PULSES PALPATED. MID ABD INCISION SITE; DRESSING CDI; TENDER. ILEOSTOMY TO RIGHT ABD. PT AMBULATES WITH ASSIST. MAKES POSITION CHANGES INDEPENDENTLY. ISOLATION; CONTACT PRECAUTIONS. PT USES URINAL. CALL LIGHT IN REACH.
--- NOTE | 2016-09-19 19:55 | NUR ---
EMPTIED 600 CC FROM URINAL.
--- NOTE | 2016-09-19 21:10 | NUR ---
FAMILY AT BEDSIDE; UPDATE GIVEN. QUESTIONS ANSWERED.
--- NOTE | 2016-09-19 22:00 | NUR ---
EMPTIED 700CC OUT OF URINAL.
--- NOTE | 2016-09-19 23:15 | NUR ---
REASSESSMENT COMPLETE. NO CHANGES FROM PREVIOUS ASSESSMENT. VSS. NO DISTRESS NOTED. CALL LIGHT IN REACH. URINAL AT BEDSIDE. WILL CONTINUE TO MONITOR.
[2016-09-20] VITALS (22 sets, daily range): BP systolic 100–125; BP diastolic 47–75
--- NOTE | 2016-09-20 01:15 | NUR ---
PT RESTING EYES CLOSED VSS. NO DISTRESS NOTED. CALL LIGHT IN REACH. WILL CONTINUE TO MONITOR.
--- NOTE | 2016-09-20 03:00 | NUR ---
REASSESSMENT COMPLETE. NO ACUTE CHANGES FROM PREVIOUS ASSESSMENT. VSS. NO DISTRESS NOTED. CALL LIGHT IN REACH. WILL CONTINUE TO MONITOR.
--- NOTE | 2016-09-20 03:10 | NUR ---
150 CC EMPTIED ILEOSTOMY. 325 CC EMPTIED URINAL.
--- NOTE | 2016-09-20 03:45 | NUR ---
ABD DRESSING CHANGED. SOILED FROM LEAKING ILEOSTOMY.
[2016-09-20 04:14] LABS: CALC OSMOLALITY 264 mosm/kg (275-300); CALCIUM 8.6 mg/dL (8.5-10.1); CARBON DIOXIDE 28.4 mmol/L (21.0-32.0); CHLORIDE - SERUM 99 mmol/L (98-107); CREATININE - SERUM 0.7 mg/dL (0.6-1.3); GLUCOSE 114 mg/dL (74-106); MAGNESIUM - SERUM 1.8 mg/dL (1.8-2.4); PHOSPHOROUS 4.7 mg/dL (2.5-4.9); POTASSIUM - SERUM 4.1 mmol/L (3.5-5.1); SODIUM 133 mmol/L (136-145); UREA NITROGEN 8 mg/dL (7-18); eGFR NON AFRICAN AMERICAN > 90 mL/min (90-120)
--- NOTE | 2016-09-20 05:30 | NUR ---
PT AWAKE AND ALERT. DENIES FURTHER NEEDS AT THIS TIME. VSS. NO DISTRESS NOTED. WILL CONTINUE TO MONITOR.
--- NOTE | 2016-09-20 06:06 | NUR ---
FAMILY AT BEDSIDE. UPDATE GIVEN. QUESTIONS ANSWERED. NO CONCERNS MENTIONED AT THIS TIME.
--- NOTE | 2016-09-20 07:00 | NUR ---
PT AWAKE ALERT AND ORIENTED X4, OBEYS COMMANDS WITH NO NEURO DEFICITS. STATES THAT HIS PAIN IS MILD AND HE WILL ATTEMPT TO WAIT FOR PAIN MEDICATION. PT SITTING UP IN BED AND ABLE TO REPOSITION SELF WITH MINIMAL ASSISTANCE. NORMAL SINUS ON MONITOR AT THIS TIME. COMPLETE SHIFT ASSESSMENT DOCUMENTED PER FLOWSHEET. VITAL SIGNS STABLE. WILL CONTINUE TO MONITOR
--- NOTE | 2016-09-20 09:00 | NUR ---
PT RESTING IN BED. WILL ALLOW PT TO REST AT THIS TIME AND GET UP WITH PHYSICAL THERAPY LATER TODAY. VITAL SIGNS STABLE. WILL CONITNUE TO MONITOR. FAMILY AT BEDSIDE AND UPDATE GIVEN.
--- NOTE | 2016-09-20 10:09 | NUR ---
NUTRITION MONITORING & EVAL PT REMAINS IN ISOLATION. PT REPORTS TOLERATING FULL LIQUID DIET. CONTINUES TPN AND LIPIDS. ADDED BMP, MAG, PHOS TO AM ORDERS. RECOMMEND TAPER AND DC TPN WHEN PT TOLERATING SOFT DIET. RD FOLLOWING
[2016-09-20 10:27] LABS: BASOPHILS 0.4 % (0-2); HEMATOCRIT 26.7 % (42.0-54.0); HEMOGLOBIN 8.8 g/dL (13.5-17.5); IMMATURE GRANULOCYTES 10.2 % (0-5); LYMPHOCYTES 11.4 % (15-50); MCH 29.8 pg (26.0-34.0); MEAN PLATELET VOLUME 9.9 fL (7.4-10.4); MONOCYTES 10.5 % (2-11); NEUTROPHILS 64.5 % (40-80); RBC 2.95 10x6/uL (4.20-6.10); WBC 16.1 10x3/uL (4.8-10.8)
[2016-09-20 10:37] LABS: MCV 90.5 fL (80.0-100.0); PLATELET COUNT 591 10x3/uL (130-400)
--- NOTE | 2016-09-20 11:00 | NUR ---
NO ACUTE CHANGES IN PT STATUS AT THIS TIME. PT PAIN APPEARS TO BE CONTROLLED AFTER PRN MEDICATION WAS GIVEN. REPOSITIONED IN BED AND ILEOSTOMY BAG EMPTIED. WILL CONTINUE TO MONITOR
--- NOTE | 2016-09-20 13:00 | NUR ---
PT UP WITH PHYSICAL THERAPY AND WALKING AROUND UNIT. TOLERATED WELL. WILL CONITNUE TO MONITOR CLOSELY
--- NOTE | 2016-09-20 15:00 | NUR ---
PT ILEOSTOMY BAG LEAKED. CHANGED ILEOSTOMY AND APPLIED DUODERM BARRIER RING TO SECURE BAG. ABDOMINAL DRESSINGS CHANGED AND LABELED. PT BACK IN BED AND FULL LINEN CHANGE COMPLETE. VITAL SIGNS STABLE.
--- NOTE | 2016-09-20 17:00 | NUR ---
PT REPOSITIONED IN BED AND USING YAUNKER SUCTION AT THIS TIME INDEPENDENTLY. PT PAIN APPEARS TO BE CONTROLLED AT THIS TIME. VITAL SIGNS STABLE. WILL CONTINUE TO MONITOR CLOSELY
--- NOTE | 2016-09-20 19:15 | NUR ---
ASSESSMENT COMPLETE. S1S2. NSR SHOWING ON MONITOR; RATE OF 99. AAO. PERRLA. ABD INCISION DRESSING CDI. RT ABD ILEOSTOMY. PT ABLE TO MAKE POSITION CHANGES INDEPENDENTLY. RR SHALLOW; DIMINISHED BILATERALLY THROUGHOUT ALL LOBES. RADIAL AND PEDAL PULSES PALPATED; +2. SLIGHT WEAKNESS NOTED IN EXTREMITIES X4. TENDERNESS TO ABD.
--- NOTE | 2016-09-20 21:29 | NUR ---
FAMILY AT BEDSIDE. UPDATE GIVEN. QUESTIONS ANSWERED. FAMILY ASSISTED BED BATH.
--- NOTE | 2016-09-20 22:00 | NUR ---
EMPTIED 100 CC OUT OF ILEOSTOMY; EMPTIED 500 CC OUT OF URINAL.
--- NOTE | 2016-09-20 23:30 | NUR ---
PT RESTING; EYES CLOSED. VSS. NO DISTRESS NOTED. WILL CONTINUE TO MONITOR.
[2016-09-21] VITALS (9 sets, daily range): BP systolic 95–1011; BP diastolic 56–66
--- NOTE | 2016-09-21 01:10 | NUR ---
PT HAVING INCREASED ANXIETY. CRYING; COMPLAINING OF NOT SLEEPING. REQUEST MOTHER TO SIT AT BEDSIDE. SPOKE WITH PATIENT AND REDUCED ANXIETY. WILL MONITOR CLOSELY.
--- NOTE | 2016-09-21 02:05 | NUR ---
150 CC OUTPUT FROM ILEOSTOMY; 600 CC FROM URINAL.
[2016-09-21 04:13] LABS: CALC OSMOLALITY 269 mosm/kg (275-300); CALCIUM 8.6 mg/dL (8.5-10.1); CARBON DIOXIDE 27.9 mmol/L (21.0-32.0); CHLORIDE - SERUM 99 mmol/L (98-107); CREATININE - SERUM 0.7 mg/dL (0.6-1.3); GLUCOSE 110 mg/dL (74-106); MAGNESIUM - SERUM 1.7 mg/dL (1.8-2.4); PHOSPHOROUS 4.3 mg/dL (2.5-4.9); POTASSIUM - SERUM 4.2 mmol/L (3.5-5.1); SODIUM 135 mmol/L (136-145); UREA NITROGEN 9 mg/dL (7-18); eGFR NON AFRICAN AMERICAN > 90 mL/min (90-120)
--- NOTE | 2016-09-21 05:00 | NUR ---
PT RESTING; EYES CLOSED. VSS. NO DISTRESS NOTED CALL LIGHT IN REACH WILL CONTINUE TO MONITOR.
--- NOTE | 2016-09-21 06:15 | NUR ---
FAMILY AT BEDSIDE. UPDATE GIVEN. QUESTIONS ANSWERED
--- NOTE | 2016-09-21 10:59 | NUR ---
CHART REVIEWED. PT OUT TO FLOOR. RENEWED AM LABS X [address] FOLLOWING
--- NOTE | 2016-09-21 15:45 | NUR ---
CVL DRESSING CHANGED TO RIGHT INTERNAL JUGULAR. STERILE TECHIQUE MAINTAINED.
--- NOTE | 2016-09-21 19:00 | NUR ---
BEDSIDE REPORT RECEIVED AND CARE OF PT ASSUMED. PT AMBULATING IN HALLWAY AT THIS TIME. RIGHT IJ PATENT WITH TPN INFUSING AT 60 ML / HR AND NS INFUSING AT 55 ML / HR. COLOSTOMY PATENT WITH SMALL AMOUNT OF LIQUID STOOL PRESENT. DRSSINGS CLEAN AND DRY. WILL MONITOR FOR NEEDS.
--- NOTE | 2016-09-21 19:05 | NUR ---
CONTACT ISOLATION PRECAUTIONS IN PLACE.
--- NOTE | 2016-09-21 21:11 | NUR ---
STARTED SCHEDULED VANC....TROUGH WAS 12.5 AT THIS CHECK.
--- NOTE | 2016-09-21 21:30 | NUR ---
PT BATHED AND ALL LINEN CHANGED BY HIS MOTHER.
--- NOTE | 2016-09-21 22:29 | NUR ---
HS MEDICATIONS GIVEN...PT WANTED MELATONIN AFTER BATH.
[2016-09-22] VITALS: BP 108/60
[2016-09-22 04:00] VITALS: BP 105/64
--- NOTE | 2016-09-22 04:40 | NUR ---
LULY AM LABS FROM CENTRAL LINE. TPN STOPPED FOR 30 MINUTE PRIOR TO DRAW.
[2016-09-22 04:57] LABS: BASOPHILS 0.5 % (0-2); EOSINOPHILS 2.4 % (0-7); HEMATOCRIT 24.7 % (42.0-54.0); HEMOGLOBIN 8.2 g/dL (13.5-17.5); IMMATURE GRANULOCYTES 5.1 % (0-5); LYMPHOCYTES 16.3 % (15-50); MCH 29.4 pg (26.0-34.0); MCHC 33.2 g/dL (31.0-37.0); MCV 88.5 fL (80.0-100.0); MEAN PLATELET VOLUME 9.1 fL (7.4-10.4); MONOCYTES 8.8 % (2-11); NEUTROPHILS 66.9 % (40-80); PLATELET COUNT 653 10x3/uL (130-400); RBC 2.79 10x6/uL (4.20-6.10); RDW 12.9 % (11.5-14.5)
[2016-09-22 05:13] LABS: CALC OSMOLALITY 274 mosm/kg (275-300); CALCIUM 8.9 mg/dL (8.5-10.1); CARBON DIOXIDE 28.5 mmol/L (21.0-32.0); CHLORIDE - SERUM 102 mmol/L (98-107); CREATININE - SERUM 0.6 mg/dL (0.6-1.3); GLUCOSE 93 mg/dL (74-106); MAGNESIUM - SERUM 1.9 mg/dL (1.8-2.4); PHOSPHOROUS 5.1 mg/dL (2.5-4.9); POTASSIUM - SERUM 4.6 mmol/L (3.5-5.1); SODIUM 138 mmol/L (136-145); UREA NITROGEN 10 mg/dL (7-18); eGFR NON AFRICAN AMERICAN > 90 mL/min (90-120)
--- NOTE | 2016-09-22 07:30 | NUR ---
PT ASSESSMENT COMPLETE AWAKE AND ALERT ORIENTED X 3 LUNGS CLAER BIALTERALLY WITH DIMINISHED BASE LEFT SIDE. BSA X 3 QUADS. ILLISTOMY NOTED TO RLQ. GOOD OUT PUT TO ILLEOSTOMY. MOTHER AT BEDSIDE. CALL LIGHT IN REACH SIDE RAILS UP X 2 VOICES ALL NEEDS
--- NOTE | 2016-09-22 09:32 | NUR ---
CM REASSESSMENT NOTE: CM SPOKE WITH PATIENT AND HIS MOTHER (ELIZABETH) REGARDING D/C NEEDS AND PLANS. PATIENT STATED HE IS GOING HOME WITH HIS MOTHER AT DISCHARGE. PATIENT SIGNED THE SYMONE FORM WITH [facility] AND REFERRAL SENT. CM WILL CONTINUE TO FOLLOW PATIENT WITH D/C NEEDS AND PLANS.
[2016-09-22 10:13] VITALS: BP 113/55
--- NOTE | 2016-09-22 11:10 | NUR ---
PT SITTING IN BED WITH FAMILY AT BEDSIDE, NO VISABLE SIGNS OF DISTRESS NOTED. BED IN LOW POSITION AND CALL LIGHT WIHTIN REACH. WILL CONTINUE TO MONITOR.
--- NOTE | 2016-09-22 11:31 | NUR ---
PT AMBULATING WITH PHYSICAL THERAPY 500 FT NOTED AMBULATING WELL PT WITH NO ACUTE DISTRESS NOTED SITTING UP IN CHAIR AT BEDSIDE AFTER AMBULATING. CALL LIGHT IN REACH MOTHER AT SIDE.
[2016-09-22 12:27] VITALS: BP 109/55
--- NOTE | 2016-09-22 12:55 | NUR ---
NUTRITION MONITORING & EVAL CHART REVIEWED. DIET ADVANCED TO REG SOFT. ADJUSTED AND RENEWED TPN. AM LABS ORDERED X [address] FOLLOWING
[2016-09-22 16:08] VITALS: BP 110/56
--- NOTE | 2016-09-22 18:00 | NUR ---
PT RESTING IN BED NO DISTRESS NOTED SISTER AT SIDE CALL LIGHT IN REACH SIDE RAILS UP X 2 VOICES ALL NEEDS TO STAFF
[2016-09-22 20:00] VITALS: BP 115/57
--- NOTE | 2016-09-22 23:53 | NUR ---
ASSESSED AT THE BEGINNING OF THE SHIFT. PT IS ALERT AND ORIENTED, ABLE TO VERBALIZE NEEDS. HIS SISTER WAS WALKING HIM AROUND THE STATION FOR A WHILE. HE HAS BEEN GIVEN AIN MEDS REQUESTED TO HELP HIM REST. HE IS WORRIED ABOUT THE AMOUNT OF THICK WHITE/MALCOLM PHLEGM HE IS COUGHING UP. WILL MAKE SURE MD IS AWARE IN AM. HIS OSTOMY IS CLEAN DRY AND INTACT WITH HIS MOM TAKING A ROLE IN KEEPING IT EMPTY. ALL MEDS HAVE BEEN TAKEN SET UP THIS EVENING AND HE SITTING UP IN BED WITH HIS MOM ASLEEP AT THE BEDSIDE. HE IS USING A URINAL AND WATCHING TV. THE BED IS LOW, RAILS UP X'S 2 WITH THE CALL LIGHT AT HAND.
[2016-09-23] VITALS: BP 118/62
[2016-09-23 04:00] VITALS: BP 106/60
[2016-09-23 06:41] LABS: CALC OSMOLALITY 273 mosm/kg (275-300); CALCIUM 8.8 mg/dL (8.5-10.1); CARBON DIOXIDE 29.1 mmol/L (21.0-32.0); CHLORIDE - SERUM 103 mmol/L (98-107); GLUCOSE 114 mg/dL (74-106); MAGNESIUM - SERUM 1.7 mg/dL (1.8-2.4); PHOSPHOROUS 4.3 mg/dL (2.5-4.9); POTASSIUM - SERUM 4.2 mmol/L (3.5-5.1); SODIUM 137 mmol/L (136-145); UREA NITROGEN 9 mg/dL (7-18)
[2016-09-23 06:57] LABS: CREATININE - SERUM 0.8 mg/dL (0.6-1.3); eGFR NON AFRICAN AMERICAN > 90 mL/min (90-120)
--- NOTE | 2016-09-23 07:30 | NUR ---
AWAKE AND ALERT. ORIENTED X3. NO C/O AT THIS TIME. LUNGS ARE CLEAR BILATERALLY, NO COUGH NOTED. SKIN IS INTACT WITHOUT REDNESS EXCEPT WOUNDS TO ABDOMEN WHICH HAVE DRY INTACT DRESSINGS IN PLACE. COLOSTOMY IS PATENT WITH DARK LIQUID OUTPUT. IV TO RIGHT JUGULAR PATENT WITHOUT REDNESS AT INSERTION SITE. URINAL HAS CLEAR YELLOW URINE INSIDE AT THIS TIME. DENIES NEEDS.
[2016-09-23 08:42] VITALS: BP 112/66
--- NOTE | 2016-09-23 10:00 | NUR ---
UP IN CHAIR AT BEDSIDE. AMBULATED IN HALLWAY WITH PT EARLIER WITHOUT C/O PAIN OF DISCOMFORT.
--- NOTE | 2016-09-23 12:00 | NUR ---
FSBS 85. ENCOURAGED TO EAT ALL OF MEAL. FAMILY IN ROOM STILL.
--- NOTE | 2016-09-23 12:47 | NUR ---
Nutrition Follow Up: Pt reported that his appetite is good. He denied any pain with eating or nausea. He is eating 42% meal avg on a regular soft diet. Labs and meds reviewed. Noted per MD note pt okay to d/c. Current TPN regimen: D25 AA 4.25% @ 60 ml/hr; 20% Lipids 250 ml q 48 hours. Will put order in to begin to taper TPN. Decrease rate to 30 ml/hr for one hour and then d/c. RD following.
--- NOTE | 2016-09-23 12:49 | NUR ---
CM REASSESSMENT NOTE: PATIENT WILL DISCHARGE TODAY HOME WITH [facility]. OSTOMY SIZE WAS GIVEN TO [place]. ELIZABETH (PATIENTS MOTHER) IS DRIVING HIM HOME. PATIENT IS STAYING WITH HIS MOTHER AND [place] KNOWS THE ADDRESS AND PHONE NUMBER.
[2016-09-23 12:52] VITALS: BP 100/59
--- NOTE | 2016-09-23 14:00 | NUR ---
WENT THROUGH CHANGING THE OSTOMY APPLIEANCE WITH PATIENT AND MOM. THEY FEEL CONFIDENT THEY CAN MANAGE THIS AT HOME WITH SOME HELP FROM HOME HEALTH. WILL SEND SUPPLIES HOME WITH PATIENT.
[2016-09-23 16:45] VITALS: BP 110/56
--- NOTE | 2016-09-23 17:00 | NUR ---
RIGHT IJ D/C WITH CATHETER INTACT WITHOUT DIFFICULTY. APPROXIMATLY 8CM LONG WITH TIP INTACT.
--- NOTE | 2016-09-23 18:42 | NUR ---
NO CHANGES NOTED AT THIS TIME. ANXIOUS TO GO HOME. WAITING ON MOM TO GO HOME. DRESSING TO ABDOMINAL INCISIONS CHANGED. INCISIONS ARE CLEAN DRY AND WELL APPROXIMATED WITH CLIPS INTACT.
== END 2016-09-23 20:44 | disposition home health service (06) | DRG 329 ==
LOC: D.ER 13:11 → D.ICU 17:33 → D.MS 17:33 → D.ICU 09-12 20:58 → D.MS 09-21 07:39
PROVIDERS: Emergency Medicine; Student in an Organized Health Care Education/Training Program; Surgery; ADMIT Surgery
PROC: 0DB80ZZ Excision of Small Intestine, Open Approach (ICD-10-PCS; principal; 2016-09-12 12:00)
PROC: 0D1B0Z4 Bypass Ileum to Cutaneous, Open Approach (ICD-10-PCS; 2016-09-12 12:00)
PROC: 4A133J1 Monitoring of Arterial Pulse, Peripheral, Percutaneous Approach (ICD-10-PCS; 2016-09-12 12:00)
PROC: 4A133B1 Monitoring of Arterial Pressure, Peripheral, Percutaneous Approach (ICD-10-PCS; 2016-09-12 12:00)
PROC: 05HM33Z Insertion of Infusion Device into Right Internal Jugular Vein, Percutaneous Approach (ICD-10-PCS; 2016-09-12 12:00)
PROC: B543ZZA Ultrasonography of Right Jugular Veins, Guidance (ICD-10-PCS; 2016-09-12 12:00)
DX: K63.1 Perforation of intestine (nontraumatic) (principal); K65.9 Peritonitis, unspecified; K56.60 Unspecified intestinal obstruction; K59.09 Other constipation; G47.00 Insomnia, unspecified; B96.1 Klebsiella pneumoniae [K. pneumoniae] as the cause of diseases classified elsewhere; K59.00 Constipation, unspecified

== ENCOUNTER 2016-10-12 16:09 | Emergency (ER) | payer BC ==
[2016-09-12 15:51] VITALS: BMI 23.9
[2016-10-12 17:40] LABS: BASOPHILS 0.9 % (0-2); IMMATURE GRANULOCYTES 0.4 % (0-5); LYMPHOCYTES 33.4 % (15-50); MCH 29.7 pg (26.0-34.0); MCHC 32.5 g/dL (31.0-37.0); MCV 91.5 fL (80.0-100.0); MEAN PLATELET VOLUME 10.3 fL (7.4-10.4); MONOCYTES 9.6 % (2-11); NEUTROPHILS 50.7 % (40-80); RBC 4.37 10x6/uL (4.20-6.10); WBC 6.7 10x3/uL (4.8-10.8)
[2016-10-12 17:48] LABS: PLATELET COUNT 270 10x3/uL (130-400)
[2016-10-12 17:53] LABS: ALBUMIN 3.3 g/dL (3.4-5.0); ALKALINE PHOSPHATASE 96 U/L (46-116); ALT (SGPT) 45 U/L (10-68); CALC OSMOLALITY 277 mosm/kg (275-300); CALCIUM 9.3 mg/dL (8.5-10.1); CHLORIDE - SERUM 103 mmol/L (98-107); CREATININE - SERUM 0.9 mg/dL (0.6-1.3); GLUCOSE 87 mg/dL (74-106); POTASSIUM - SERUM 4.2 mmol/L (3.5-5.1); PROTEIN - SERUM 7.6 g/dL (6.4-8.2); SODIUM 140 mmol/L (136-145); UREA NITROGEN 12 mg/dL (7-18); eGFR NON AFRICAN AMERICAN > 90 mL/min (90-120)
== END 2016-10-12 20:50 | disposition home or self-care (01) ==
LOC: D.ER 16:09
PROVIDERS: Emergency Medicine
DX: K94.19 Other complications of enterostomy (principal); R19.7 Diarrhea, unspecified

== ENCOUNTER → 2016-11-01 19:41 | Outpatient (CLI) | payer BC ==
[2016-09-12 15:51] VITALS: BMI 23.9
== END | disposition home or self-care (01) ==
LOC: D.LABREF 19:41
DX: R31.9 Hematuria, unspecified (principal)

== ENCOUNTER 2016-11-03 01:41 | Emergency (ER) | payer BC ==
[2016-09-12 15:51] VITALS: BMI 23.9
== END 2016-11-03 03:40 | disposition home or self-care (01) ==
LOC: D.ER 01:41
DX: K94.19 Other complications of enterostomy (principal); Y84.8 Other medical procedures as the cause of abnormal reaction of the patient, or of later complication, without mention of misadventure at the time of the procedure

== ENCOUNTER 2016-12-01 05:37 | Day surgery (SDC) | payer BC ==
[2016-11-29 15:45] LABS: HEMATOCRIT 39.6 % (42.0-54.0); HEMOGLOBIN 13.8 g/dL (13.5-17.5); MCH 30.1 pg (26.0-34.0); MCHC 34.8 g/dL (31.0-37.0); MCV 86.5 fL (80.0-100.0); MEAN PLATELET VOLUME 10.4 fL (7.4-10.4); RBC 4.58 10x6/uL (4.20-6.10); RDW 12.9 % (11.5-14.5); WBC 7.9 10x3/uL (4.8-10.8)
[2016-11-29 16:14] LABS: CALC OSMOLALITY 280 mosm/kg (275-300); CALCIUM 9.8 mg/dL (8.5-10.1); CARBON DIOXIDE 26.1 mmol/L (21.0-32.0); CHLORIDE - SERUM 104 mmol/L (98-107); CREATININE - SERUM 1.1 mg/dL (0.6-1.3); GLUCOSE 108 mg/dL (74-106); POTASSIUM - SERUM 4.3 mmol/L (3.5-5.1); SODIUM 141 mmol/L (136-145); UREA NITROGEN 11 mg/dL (7-18); eGFR NON AFRICAN AMERICAN 87 mL/min (90-120)
[~2016-12-01] VITALS: Ht 175.3 cm; Wt 65.8 kg
[~2016-12-01 05:37] MED LIST changes: +IMODIUM2 MG PO
[2016-12-01 08:45] VITALS: BP 118/87; Ht 175.3 cm; Wt 65.8 kg
--- NOTE | 2016-12-02 11:24 | OP ---
PATIENT NAME: ABDULKADIR MELENDREZ IV MEDICAL RECORD: [id number] :89 LOCATION:D.OPS ADMISSION DATE: SURGEON: ABDULKADIR COLE MD DATE OF OPERATION: 12/01/2016 SURGEON: Abdulkadir Cole MD ANESTHESIA: MAC by Chiara Sheridan CRNA. PREOPERATIVE DIAGNOSIS: Microhematuria. POSTOPERATIVE DIAGNOSIS: Microhematuria. PROCEDURE: Cystoscopy. FINDINGS: Bulbar urethral vascularity, vascular prostate which is nonobstructive. Single ureteral orifices bilaterally. No bladder tumors. ESTIMATED BLOOD LOSS: None. COMPLICATIONS: None. CLINICAL HISTORY: This is a 26-year-old male with a history of microhematuria. He has a very complicated GI history including multiple surgeries for an atonic colon. He now comes to have cystoscopy under sedation. He was given IV antibiotics section weaver to the OR. DESCRIPTION OF PROCEDURE: The patient was given IV sedation. He was then placed in the dorsal lithotomy position and prepped and draped. A 17-Australian cystoscope with 30-degree lens was used for visualization. Findings are as outlined above. No bladder tumors were seen. The bladder was then emptied through the scope and the scope was removed entirely. TRANSINT:[id number] Voice Confirmation ID: [id number] DOCUMENT ID: [id number] ABDULKADIR COLE MD at 1124 CC: [id number] DICTATION DATE: 12/01/16 1531 QUALITY CONTROL SCIENTIST: 12/01/16 2337 [facility] 12/01/16 [place] [id number]
== END 2016-12-01 18:02 | disposition home or self-care (01) ==
LOC: D.OPS 05:37 → D.PAN 11:45 → D.OPS 11:45 → D.PAN 13:25 → D.OPS 18:02
PROVIDERS: Anesthesiology
DX: R31.29 Other microscopic hematuria (principal); K21.9 Gastro-esophageal reflux disease without esophagitis; Z01.812 Encounter for preprocedural laboratory examination

== ENCOUNTER → 2016-12-22 07:52 | Outpatient (CLI) | payer BC ==
[2016-12-01 08:45] VITALS: BMI 21.4
== END | disposition home or self-care (01) ==
LOC: D.RAD 07:52
DX: Z93.2 Ileostomy status (principal)

== ENCOUNTER 2017-03-31 06:27 | Inpatient (IN) | payer BC ==
[~2017-03-31] VITALS: Ht 175.3 cm; Wt 72.6 kg
--- NOTE | ~2017-03-31 | HP ---
PATIENT: DANITZA MELENDREZ IV MEDICAL RECORD: [id number] ACCOUNT: [id number] LOCATION:D.MS [place]8 : [birth year] ADMISSION DATE: 03/31/17 HISTORY AND PHYSICAL EXAMINATION CHIEF COMPLAINT: Desires ileostomy takedown. HISTORY OF PRESENT ILLNESS: The patient has a diverting ileostomy. He has undergone a subtotal colectomy with revision, which required a diverting ileostomy. He has undergone a dye enema, which showed no leakage from the anastomosis. The risks, possible complications, and alternatives to procedure were explained to the patient. He elects to proceed. HOME MEDICINES: Imodium. ALLERGIES: No known drug allergies. REVIEW OF SYSTEMS: Negative for coronary artery disease or hypertension. Negative for CVA or seizures. Negative for diabetes or thyroid problems. SOCIAL HISTORY: Nonsmoker. PHYSICAL EXAMINATION: GENERAL: The patient does not appear acutely ill. He does not appear chronically ill. VITAL SIGNS: Reviewed. HEAD: External ears appear normal. EYES: Extraocular movements are intact. NECK: Trachea is midline. CHEST: No intercostal retractions. PULMONARY: Nonlabored, no stridor. ABDOMEN: Nontender. Right lower quadrant stoma. IMPRESSION: Ileostomy, desires revision. PLAN: Ileostomy takedown. TRANSINT:[id number] Voice Confirmation ID: [id number] DOCUMENT ID: [id number] DANITZA SANCHEZ MD at 0938 CC: CARIN ABAD DO [id number] DICTATION DATE: 03/31/17 1208 COMPLIANCE ASSOCIATE: 03/31/17 1230 DIS IN 04/09/17 [place] [id number] [place] [id number]
--- NOTE | ~2017-03-31 | OP ---
PATIENT NAME: DANITZA MELENDREZ IV MEDICAL RECORD: [id number] :89 LOCATION:D.MS [id number] ADMISSION DATE:03/31/17 SURGEON: DANITZA SANCHEZ MD DATE OF OPERATION: 03/31/2017 PREOPERATIVE DIAGNOSIS: Ileostomy, desires reversal. POSTOPERATIVE DIAGNOSIS: Ileostomy, desires reversal. PROCEDURE: Ileostomy reversal. SURGEON: Danitza Sanchez MD DIRECTOR OF STRATEGY & MOBILE: None. BLOOD LOSS: 100 cc. ANESTHESIA: General. COMPLICATIONS: None. The risks, possible complications, and alternatives to procedure were explained to the patient. He elects to proceed. OPERATIVE COURSE: The patient was conveyed to the operating room electively on 03/31/2017. General anesthesia was induced by the anesthesia staff. The abdomen was sterilely prepped and draped. An incision was accomplished around the stoma. I dissected down to the ileum. I was able to dissect around the ileum at the level of the fascia and muscle. I was able to deliver both lumens of the ileum. Two small enterotomies were accomplished. I advanced anvils of the CHRISTY-75 stapler and then fired. The resulting antral defect was closed with a single firing of the TA 60 stapler. There was some redundant ileum at the site where the ileostomy had been and I stapled this off with a TA 60 stapler. I then delivered the anastomosis into the peritoneal cavity. I then closed the deep fascial layer with a pursestring #1 Vicryl. The muscles were closed with a horizontal mattress #1 Vicryl. The anterior fascia was closed with running #1 Vicryls. The subdermis was approximated with interrupted 3-0 Vicryls. The skin was approximated with multiple interrupted horizontal mattress 3-0 Vicryl Milam. I then advanced a Saad drain through the sutures and down into the ileostomy cavity. I sutured the drain to the skin with a 2-0 nylon. A sterile dressing was applied. The patient was then extubated and conveyed to post-anesthesia care unit where he was in stable condition. TRANSINT:[id number] Voice Confirmation ID: [id number] DOCUMENT ID: [id number] OPERATIVE REPORT [id number] DANITZA MELENDREZ DANITZA PAGAN MD at 0938 CC: CARIN ABAD DO [id number] DICTATION DATE: 03/31/17 1225 HYDROELECTRIC PLANT MECHANICAL ENGINEER: 03/31/17 1323 DIS IN 04/09/17 [facility] [address] [place] [id number]
--- NOTE | ~2017-03-31 | DS ---
PATIENT:DANITZA MELENDREZ IV :89 MEDICAL RECORD: [id number] DISCHARGE SUMMARY ADMISSION DATE: 03/31/17 DISCHARGE DATE: 04/09/17 PRINCIPAL DIAGNOSES: 1. Ileostomy, desires reversal. 2. History of subtotal colectomy. 3. Postoperative ileus. PROCEDURE: Ileostomy takedown. HOSPITAL COURSE: The patient underwent the above operative procedure. Postoperatively, his diet was advanced and then he began having vomiting. We had to retrace our footsteps and slowly increase his diet again. He is being dismissed home on Colace as well as Zofran and hydrocodone. I will see him in the office in 2-3 weeks. His drain will be removed before he is dismissed home. TRANSINT:[id number] Voice Confirmation ID: [id number] DOCUMENT ID: [id number] DANITZA SANCHEZ MD at 0938 CC: [id number] DICTATION DATE: 04/09/17 1720 DYER AND WASHER: 04/10/17 1310 DIS IN 04/09/17 [facility] [address] [place] [address]
[2017-03-31 07:36] VITALS: BP 121/74; BMI 21.9
[2017-03-31 12:35] VITALS: BP 148/77
[2017-03-31 16:45] VITALS: BP 104/47
[2017-03-31 18:06] VITALS: BP 148/77; BMI 23.6
[2017-03-31 20:00] VITALS: BP 98/37
[2017-04-01 04:00] VITALS: BP 95/63
[2017-04-01 08:49] VITALS: BP 100/43
[2017-04-01 11:34] VITALS: Ht 175.3 cm; Wt 72.6 kg
[2017-04-01 12:36] VITALS: BP 110/51
[2017-04-01 16:36] VITALS: BP 119/55
[2017-04-01 16:53] LABS: BASOPHILS 0.1 % (0-2); EOSINOPHILS 0.9 % (0-7); HEMATOCRIT 34.9 % (42.0-54.0); HEMOGLOBIN 11.9 g/dL (13.5-17.5); IMMATURE GRANULOCYTES 0.1 % (0-5); LYMPHOCYTES 22.1 % (15-50); MCH 31.1 pg (26.0-34.0); MCHC 34.1 g/dL (31.0-37.0); MCV 91.1 fL (80.0-100.0); MEAN PLATELET VOLUME 10.9 fL (7.4-10.4); MONOCYTES 13.6 % (2-11); NEUTROPHILS 63.2 % (40-80); PLATELET COUNT 203 10x3/uL (130-400); RBC 3.83 10x6/uL (4.20-6.10); RDW 12.8 % (11.5-14.5); WBC 7.7 10x3/uL (4.8-10.8)
[2017-04-01 17:23] LABS: CALC OSMOLALITY 274 mosm/kg (275-300); CALCIUM 8.5 mg/dL (8.5-10.1); CHLORIDE - SERUM 103 mmol/L (98-107); CREATININE - SERUM 1.1 mg/dL (0.6-1.3); GLUCOSE 84 mg/dL (74-106); POTASSIUM - SERUM 3.8 mmol/L (3.5-5.1); SODIUM 138 mmol/L (136-145); UREA NITROGEN 12 mg/dL (7-18); eGFR NON AFRICAN AMERICAN 87 mL/min (90-120)
[2017-04-01 20:00] VITALS: BP 108/45
[2017-04-02 04:00] VITALS: BP 104/45
[2017-04-02 08:15] VITALS: BP 115/53
[2017-04-02 08:22] LABS: BASOPHILS 0.1 % (0-2); EOSINOPHILS 2.1 % (0-7); HEMATOCRIT 34.2 % (42.0-54.0); HEMOGLOBIN 11.8 g/dL (13.5-17.5); IMMATURE GRANULOCYTES 0.1 % (0-5); LYMPHOCYTES 23.1 % (15-50); MCH 31.1 pg (26.0-34.0); MCHC 34.5 g/dL (31.0-37.0); MCV 90.2 fL (80.0-100.0); MEAN PLATELET VOLUME 10.2 fL (7.4-10.4); MONOCYTES 11.9 % (2-11); NEUTROPHILS 62.7 % (40-80); PLATELET COUNT 195 10x3/uL (130-400); RBC 3.79 10x6/uL (4.20-6.10); RDW 12.5 % (11.5-14.5); WBC 6.7 10x3/uL (4.8-10.8)
[2017-04-02 08:42] LABS: ALBUMIN 2.7 g/dL (3.4-5.0); ALKALINE PHOSPHATASE 70 U/L (46-116); ALT (SGPT) 20 U/L (10-68); CALC OSMOLALITY 270 mosm/kg (275-300); CALCIUM 8.4 mg/dL (8.5-10.1); CARBON DIOXIDE 26.8 mmol/L (21.0-32.0); CHLORIDE - SERUM 103 mmol/L (98-107); CREATININE - SERUM 1.2 mg/dL (0.6-1.3); GLUCOSE 73 mg/dL (74-106); MAGNESIUM - SERUM 1.7 mg/dL (1.8-2.4); PHOSPHOROUS 2.7 mg/dL (2.5-4.9); POTASSIUM - SERUM 3.9 mmol/L (3.5-5.1); PROTEIN - SERUM 5.6 g/dL (6.4-8.2); SODIUM 136 mmol/L (136-145); UREA NITROGEN 12 mg/dL (7-18); eGFR NON AFRICAN AMERICAN 79 mL/min (90-120)
[2017-04-02 11:59] VITALS: BP 108/49
[2017-04-02 16:12] VITALS: BP 103/43
[2017-04-02 20:00] VITALS: BP 118/56
[2017-04-03 04:00] VITALS: BP 90/48
[2017-04-03 08:09] VITALS: BP 94/46
[2017-04-03 12:03] VITALS: BP 105/62
[2017-04-03 16:10] VITALS: BP 107/48
[2017-04-03 20:00] VITALS: BP 115/48
[2017-04-04 08:07] VITALS: BP 105/48
[2017-04-04 11:46] VITALS: BP 97/54
[2017-04-04 16:04] VITALS: BP 117/63
[2017-04-04 20:00] VITALS: BP 106/56
[2017-04-04 22:22] VITALS: BP 96/60
[2017-04-05 01:06] VITALS: BP 104/58
[2017-04-05 04:00] VITALS: BP 101/54
[2017-04-05 05:23] LABS: BASOPHILS 0.2 % (0-2); EOSINOPHILS 4.4 % (0-7); HEMATOCRIT 37.4 % (42.0-54.0); IMMATURE GRANULOCYTES 0.2 % (0-5); LYMPHOCYTES 29.5 % (15-50); MCH 30.6 pg (26.0-34.0); MCHC 34.8 g/dL (31.0-37.0); MEAN PLATELET VOLUME 10.4 fL (7.4-10.4); NEUTROPHILS 48.7 % (40-80); RBC 4.25 10x6/uL (4.20-6.10); RDW 12.2 % (11.5-14.5); WBC 4.6 10x3/uL (4.8-10.8)
[2017-04-05 05:47] LABS: CALC OSMOLALITY 271 mosm/kg (275-300); CALCIUM 9.7 mg/dL (8.5-10.1); CARBON DIOXIDE 30.5 mmol/L (21.0-32.0); CHLORIDE - SERUM 101 mmol/L (98-107); GLUCOSE 98 mg/dL (74-106); MAGNESIUM - SERUM 2.2 mg/dL (1.8-2.4); PHOSPHOROUS 3.7 mg/dL (2.5-4.9); POTASSIUM - SERUM 3.7 mmol/L (3.5-5.1); SODIUM 137 mmol/L (136-145); UREA NITROGEN 7 mg/dL (7-18); eGFR NON AFRICAN AMERICAN > 90 mL/min (90-120)
[2017-04-05 05:53] LABS: PLATELET COUNT 272 10x3/uL (130-400)
[2017-04-05 08:16] VITALS: BP 99/57
[2017-04-05 12:45] VITALS: BP 114/63
[2017-04-05 16:45] VITALS: BP 130/78
[2017-04-05 20:00] VITALS: BP 106/65
[2017-04-06] VITALS: BP 102/52
[2017-04-06 04:00] VITALS: BP 98/53
[2017-04-06 06:36] LABS: HEMATOCRIT 36.6 % (42.0-54.0); HEMOGLOBIN 12.7 g/dL (13.5-17.5); LYMPHOCYTES 32.4 % (15-50); MCH 30.1 pg (26.0-34.0); MCHC 34.7 g/dL (31.0-37.0); MCV 86.7 fL (80.0-100.0); MEAN PLATELET VOLUME 9.6 fL (7.4-10.4); PLATELET COUNT 274 10x3/uL (130-400); RBC 4.22 10x6/uL (4.20-6.10); RDW 12.3 % (11.5-14.5); WBC 4.9 10x3/uL (4.8-10.8)
[2017-04-06 07:11] LABS: ALBUMIN 3.2 g/dL (3.4-5.0); ALKALINE PHOSPHATASE 78 U/L (46-116); ALT (SGPT) 21 U/L (10-68); CALC OSMOLALITY 285 mosm/kg (275-300); CALCIUM 9.6 mg/dL (8.5-10.1); CARBON DIOXIDE 29.1 mmol/L (21.0-32.0); CHLORIDE - SERUM 105 mmol/L (98-107); CREATININE - SERUM 1.1 mg/dL (0.6-1.3); GLUCOSE 97 mg/dL (74-106); MAGNESIUM - SERUM 2.1 mg/dL (1.8-2.4); PHOSPHOROUS 3.8 mg/dL (2.5-4.9); POTASSIUM - SERUM 3.8 mmol/L (3.5-5.1); PROTEIN - SERUM 6.8 g/dL (6.4-8.2); SODIUM 144 mmol/L (136-145); eGFR NON AFRICAN AMERICAN 87 mL/min (90-120)
[2017-04-06 07:12] LABS: UREA NITROGEN 9 mg/dL (7-18)
[2017-04-06 09:03] VITALS: BP 109/64
[2017-04-06 13:53] VITALS: BP 123/64; BP 151/82
[2017-04-06 16:20] VITALS: BP 106/67
[2017-04-06 20:00] VITALS: BP 103/63
[2017-04-07 04:00] VITALS: BP 83/48
[2017-04-07 08:17] VITALS: BP 104/64
[2017-04-07 11:47] VITALS: BP 105/68
[2017-04-07 17:21] VITALS: BP 105/64
[2017-04-07 20:00] VITALS: BP 108/64
[2017-04-08] VITALS: BP 117/64
[2017-04-08 04:00] VITALS: BP 113/53
[2017-04-08 09:56] VITALS: BP 93/51
[2017-04-08 12:38] VITALS: BP 117/71
[2017-04-08 16:45] VITALS: BP 114/51
[2017-04-08 20:00] VITALS: BP 93/60
[2017-04-09] VITALS: BP 105/49
[2017-04-09 04:00] VITALS: BP 102/50
[2017-04-09 08:44] VITALS: BP 89/39
[2017-04-09 16:36] VITALS: BP 100/47
[2017-04-09] MEDS ORDERED: HYDROCODON-ACE1 EAC7 PO (17:10)
[2017-04-09] MEDS ORDERED: ZOFRAN4 MG PO (17:12)
[2017-04-09] MEDS ORDERED: COLACE100 MG PO (17:13)
== END 2017-04-09 19:33 | disposition home or self-care (01) | DRG 330 ==
LOC: D.SDCHOLD 06:27 → D.MS 06:27 → D.SDCHOLD 09:00 → D.MS 12:26
PROVIDERS: Surgery
PROC: 0DBB0ZZ Excision of Ileum, Open Approach (ICD-10-PCS; principal; 2017-03-31 09:00)
DX: Z43.2 Encounter for attention to ileostomy (principal); K56.7 Ileus, unspecified

== ENCOUNTER 2017-04-13 21:15 | Inpatient (IN) | payer BC ==
[~2017-04-13] VITALS: Ht 175.3 cm; Wt 65.8 kg
[~2017-04-13 21:15] MED LIST changes: +COLACE100 MG PO
[2017-04-13 22:38] LABS: BASOPHILS 0.2 % (0-2); EOSINOPHILS 1.8 % (0-7); HEMATOCRIT 38.5 % (42.0-54.0); HEMOGLOBIN 13.1 g/dL (13.5-17.5); IMMATURE GRANULOCYTES 0.1 % (0-5); LYMPHOCYTES 14.3 % (15-50); MCH 30.2 pg (26.0-34.0); MCV 88.7 fL (80.0-100.0); MEAN PLATELET VOLUME 9.7 fL (7.4-10.4); MONOCYTES 11.7 % (2-11); NEUTROPHILS 71.9 % (40-80); RBC 4.34 10x6/uL (4.20-6.10); RDW 12.1 % (11.5-14.5); WBC 8.8 10x3/uL (4.8-10.8)
[2017-04-13 22:55] LABS: PLATELET COUNT 443 10x3/uL (130-400)
[2017-04-13 23:01] LABS: ALBUMIN 3.3 g/dL (3.4-5.0); ALKALINE PHOSPHATASE 68 U/L (46-116); ALT (SGPT) 14 U/L (10-68); CALC OSMOLALITY 277 mosm/kg (275-300); CALCIUM 8.9 mg/dL (8.5-10.1); CARBON DIOXIDE 32.7 mmol/L (21.0-32.0); CHLORIDE - SERUM 98 mmol/L (98-107); CREATININE - SERUM 1.1 mg/dL (0.6-1.3); GLUCOSE 103 mg/dL (74-106); POTASSIUM - SERUM 4.3 mmol/L (3.5-5.1); PROTEIN - SERUM 7.2 g/dL (6.4-8.2); SODIUM 139 mmol/L (136-145); UREA NITROGEN 12 mg/dL (7-18); eGFR NON AFRICAN AMERICAN 87 mL/min (90-120)
[2017-04-13 23:26] LABS: APPEARANCE HAZY (CLEAR); BILIRUBIN NEGATIVE (NEGATIVE); COLOR YELLOW (YELLOW); GLUCOSE NEGATIVE (NEGATIVE); KETONE NEGATIVE (NEGATIVE); NITRITE NEGATIVE (NEGATIVE); PROTEIN NEGATIVE (NEGATIVE); UROBILINOGEN NORMAL (NORMAL)
[2017-04-14 02:29] VITALS: BP 124/68; BMI 21.4
[2017-04-14 04:00] VITALS: BP 124/68
[2017-04-14 05:40] LABS: BASOPHILS 0.2 % (0-2); EOSINOPHILS 2.5 % (0-7); HEMATOCRIT 35.9 % (42.0-54.0); HEMOGLOBIN 12.2 g/dL (13.5-17.5); IMMATURE GRANULOCYTES 0.2 % (0-5); LYMPHOCYTES 20.3 % (15-50); MCH 30.1 pg (26.0-34.0); MCV 88.6 fL (80.0-100.0); MONOCYTES 13.8 % (2-11); PLATELET COUNT 444 10x3/uL (130-400); RBC 4.05 10x6/uL (4.20-6.10); RDW 12.1 % (11.5-14.5); WBC 8.6 10x3/uL (4.8-10.8)
[2017-04-14 06:17] LABS: ALBUMIN 3.1 g/dL (3.4-5.0); ALKALINE PHOSPHATASE 65 U/L (46-116); ALT (SGPT) 13 U/L (10-68); CALC OSMOLALITY 273 mosm/kg (275-300); CALCIUM 9.2 mg/dL (8.5-10.1); CARBON DIOXIDE 29.2 mmol/L (21.0-32.0); CHLORIDE - SERUM 99 mmol/L (98-107); GLUCOSE 102 mg/dL (74-106); PROTEIN - SERUM 6.6 g/dL (6.4-8.2); SODIUM 137 mmol/L (136-145); UREA NITROGEN 12 mg/dL (7-18); eGFR NON AFRICAN AMERICAN > 90 mL/min (90-120)
[2017-04-14 07:54] VITALS: BP 98/51
[2017-04-14 13:16] VITALS: Ht 175.3 cm; Wt 65.8 kg
[2017-04-14 16:18] VITALS: BP 97/44
[2017-04-14 20:00] VITALS: BP 117/69
[2017-04-15] VITALS: BP 100/56
[2017-04-15 08:49] VITALS: BP 105/56
[2017-04-15 12:59] VITALS: BP 103/66
[2017-04-15 16:45] VITALS: BP 111/64
[2017-04-15 20:00] VITALS: BP 104/62
[2017-04-15 23:44] VITALS: BP 113/60
[2017-04-16 04:00] VITALS: BP 96/48
[2017-04-16 08:18] VITALS: BP 99/55
== END 2017-04-16 11:20 | disposition home or self-care (01) | DRG 390 ==
LOC: D.ER 21:15 → D.MS 04-14 01:10
PROVIDERS: Family Medicine
DX: K56.41 Fecal impaction (principal)

== ENCOUNTER → 2017-05-08 12:18 | Outpatient (CLI) | payer BC ==
[2017-04-14 13:16] VITALS: BMI 21.4
== END | disposition home or self-care (01) ==
LOC: D.RAD 12:18
DX: R10.9 Unspecified abdominal pain (principal)

== ENCOUNTER → 2017-05-10 11:39 | Outpatient (CLI) | payer BC ==
[2017-04-14 13:16] VITALS: BMI 21.4
== END | disposition home or self-care (01) ==
LOC: D.RAD 11:30
DX: R10.9 Unspecified abdominal pain (principal)

== ENCOUNTER → 2017-05-31 09:31 | Outpatient (CLI) | payer BC ==
[2017-04-14 13:16] VITALS: BMI 21.4
[2017-05-31 11:35] LABS: BASOPHILS 0.3 % (0-2); EOSINOPHILS 3.4 % (0-7); HEMATOCRIT 39.9 % (42.0-54.0); HEMOGLOBIN 13.4 g/dL (13.5-17.5); IMMATURE GRANULOCYTES 0.2 % (0-5); LYMPHOCYTES 41.1 % (15-50); MCH 29.9 pg (26.0-34.0); MCHC 33.6 g/dL (31.0-37.0); MCV 89.1 fL (80.0-100.0); MEAN PLATELET VOLUME 10.4 fL (7.4-10.4); MONOCYTES 10.2 % (2-11); NEUTROPHILS 44.8 % (40-80); RBC 4.48 10x6/uL (4.20-6.10); RDW 12.5 % (11.5-14.5); WBC 6.4 10x3/uL (4.8-10.8)
[2017-05-31 11:40] LABS: PLATELET COUNT 240 10x3/uL (130-400)
[2017-05-31 12:05] LABS: ALBUMIN 3.9 g/dL (3.4-5.0); ALKALINE PHOSPHATASE 71 U/L (46-116); ALT (SGPT) 12 U/L (10-68); BILIRUBIN - TOTAL 0.62 mg/dL (0.2-1.3); CALC OSMOLALITY 281 mosm/kg (275-300); CALCIUM 9.4 mg/dL (8.5-10.1); CARBON DIOXIDE 29.8 mmol/L (21.0-32.0); CHLORIDE - SERUM 104 mmol/L (98-107); CREATININE - SERUM 1.2 mg/dL (0.6-1.3); GLUCOSE 118 mg/dL (74-106); POTASSIUM - SERUM 3.6 mmol/L (3.5-5.1); PROTEIN - SERUM 7.1 g/dL (6.4-8.2); SODIUM 141 mmol/L (136-145); UREA NITROGEN 12 mg/dL (7-18); eGFR NON AFRICAN AMERICAN 79 mL/min (90-120)
== END | disposition home or self-care (01) ==
LOC: D.RT 09:31
PROVIDERS: Internal Medicine Pulmonary Disease
DX: R06.00 Dyspnea, unspecified (principal)

== ENCOUNTER 2017-06-11 08:54 | Emergency (ER) | payer BC ==
[2017-04-14 13:16] VITALS: BMI 21.4
[2017-06-11 09:24] LABS: BASOPHILS 0.4 % (0-2); EOSINOPHILS 3.1 % (0-7); HEMATOCRIT 38.1 % (42.0-54.0); HEMOGLOBIN 13.1 g/dL (13.5-17.5); IMMATURE GRANULOCYTES 0.4 % (0-5); LYMPHOCYTES 33.1 % (15-50); MCHC 34.4 g/dL (31.0-37.0); MCV 87.4 fL (80.0-100.0); MEAN PLATELET VOLUME 10.7 fL (7.4-10.4); MONOCYTES 9.4 % (2-11); NEUTROPHILS 53.6 % (40-80); PLATELET COUNT 222 10x3/uL (130-400); RBC 4.36 10x6/uL (4.20-6.10); RDW 12.5 % (11.5-14.5); WBC 5.4 10x3/uL (4.8-10.8)
[2017-06-11 09:36] LABS: ALBUMIN 3.8 g/dL (3.4-5.0); ALKALINE PHOSPHATASE 76 U/L (46-116); ALT (SGPT) 14 U/L (10-68); BILIRUBIN - TOTAL 0.68 mg/dL (0.2-1.3); CALC OSMOLALITY 275 mosm/kg (275-300); CALCIUM 9.2 mg/dL (8.5-10.1); CARBON DIOXIDE 27.5 mmol/L (21.0-32.0); CHLORIDE - SERUM 101 mmol/L (98-107); CREATININE - SERUM 1.2 mg/dL (0.6-1.3); GLUCOSE 113 mg/dL (74-106); POTASSIUM - SERUM 3.9 mmol/L (3.5-5.1); SODIUM 138 mmol/L (136-145); UREA NITROGEN 10 mg/dL (7-18); eGFR NON AFRICAN AMERICAN 79 mL/min (90-120)
== END 2017-06-11 15:19 | disposition home or self-care (01) ==
LOC: D.ER 08:54
PROVIDERS: Family Medicine
DX: R10.9 Unspecified abdominal pain (principal); K63.89 Other specified diseases of intestine

== ENCOUNTER → 2017-06-13 13:35 | Outpatient (CLI) | payer BC ==
[2017-04-14 13:16] VITALS: BMI 21.4
== END | disposition home or self-care (01) ==
LOC: D.US 13:35
DX: R10.11 Right upper quadrant pain (principal); R11.0 Nausea

== ENCOUNTER → 2017-06-22 08:51 | Outpatient (CLI) | payer BC ==
[2017-04-14 13:16] VITALS: BMI 21.4
== END ==
LOC: D.RAD 08:51
DX: R10.9 Unspecified abdominal pain (principal)

== ENCOUNTER → 2017-09-11 10:52 | Outpatient (CLI) | payer BC ==
[2017-04-14 13:16] VITALS: BMI 21.4
[~2017-09-11 10:52] MED LIST changes: +CHRONULAC30 ML PO; +KRISTALOSE20 G/PKT PO; +LEVSIN/ANASP0.125 MG PO; +PROTONIX40 MG PO; +SYMBICORT 80-10.2 GM INH
== END | disposition home or self-care (01) ==
LOC: D.CT 10:52
DX: R10.11 Right upper quadrant pain (principal)

== ENCOUNTER 2017-09-12 10:49 | Emergency (ER) | payer BC ==
[~2017-09-12] VITALS: Ht 175.3 cm; Wt 67.7 kg
[~2017-09-12 10:49] MED LIST changes: -CHRONULAC30 ML PO; -KRISTALOSE20 G/PKT PO; -LEVSIN/ANASP0.125 MG PO; -PROTONIX40 MG PO; -SYMBICORT 80-10.2 GM INH
[2017-09-12 11:02] VITALS: Ht 175.3 cm; Wt 67.7 kg
[2017-09-12 11:27] LABS: BASOPHILS 0.6 % (0-2); EOSINOPHILS 5.1 % (0-7); HEMATOCRIT 37.9 % (42.0-54.0); HEMOGLOBIN 12.9 g/dL (13.5-17.5); IMMATURE GRANULOCYTES 0.4 % (0-5); LYMPHOCYTES 40.4 % (15-50); MCH 30.4 pg (26.0-34.0); MCV 89.4 fL (80.0-100.0); MEAN PLATELET VOLUME 10.8 fL (7.4-10.4); MONOCYTES 8.4 % (2-11); NEUTROPHILS 45.1 % (40-80); PLATELET COUNT 209 10x3/uL (130-400); RBC 4.24 10x6/uL (4.20-6.10); RDW 12.9 % (11.5-14.5); WBC 5.1 10x3/uL (4.8-10.8)
[2017-09-12 11:28] LABS: APPEARANCE CLEAR (CLEAR); BILIRUBIN NEGATIVE (NEGATIVE); COLOR DK YELLOW (YELLOW); GLUCOSE NEGATIVE (NEGATIVE); KETONE NEGATIVE (NEGATIVE); NITRITE NEGATIVE (NEGATIVE); PROTEIN NEGATIVE (NEGATIVE); UROBILINOGEN NORMAL (NORMAL)
[2017-09-12 11:45] LABS: ALBUMIN 3.9 g/dL (3.4-5.0); ALKALINE PHOSPHATASE 70 U/L (46-116); ALT (SGPT) 50 U/L (10-68); CALC OSMOLALITY 282 mosm/kg (275-300); CALCIUM 9.2 mg/dL (8.5-10.1); CARBON DIOXIDE 26.8 mmol/L (21.0-32.0); CHLORIDE - SERUM 105 mmol/L (98-107); CREATININE - SERUM 1.2 mg/dL (0.6-1.3); GLUCOSE 150 mg/dL (74-106); POTASSIUM - SERUM 3.3 mmol/L (3.5-5.1); PROTEIN - SERUM 7.1 g/dL (6.4-8.2); SODIUM 139 mmol/L (136-145); UREA NITROGEN 18 mg/dL (7-18); eGFR NON AFRICAN AMERICAN 79 mL/min (90-120)
[2017-09-12 11:46] LABS: AMYLASE - SERUM 87 U/L (25-115); LIPASE 140 U/L (73-393)
[2017-09-12] MEDS ORDERED: KRISTALOSE20 G/PKT PO (16:20)
[2017-09-12 16:47] VITALS: BP 133/82
== END 2017-09-12 16:47 | disposition home or self-care (01) ==
LOC: D.ER 10:49
PROVIDERS: Emergency Medicine
DX: Z87.19 Personal history of other diseases of the digestive system (principal); K56.41 Fecal impaction

== ENCOUNTER 2017-10-30 21:05 | Observation (INO) | payer BC ==
[~2017-10-30] VITALS: Ht 175.3 cm; Wt 72.7 kg
--- NOTE | ~2017-10-30 | DS ---
PATIENT:DANITZA MELENDREZ IV :89 MEDICAL RECORD: [id number] DISCHARGE SUMMARY ADMISSION DATE: 10/31/17 DISCHARGE DATE: 11/04/17 HOSPITAL COURSE: He is being dismissed home. He is feeling better. He has had multiple bowel movements. I told him that bloating, abdominal pain, as well as nausea are likely going to be issues that he is going to have to live with. The cathartics, etc. were able to clear the high impaction that he had. He is going to go back on his bowel regimen of lactulose and MiraLax. I will see him on a p.r.n. basis. DIAGNOSES: 1. Ileus, also high impaction. 2. Constipation. 3. Nausea. TRANSINT:[id number] Voice Confirmation ID: [id number] DOCUMENT ID: [id number] DANITZA SANCHEZ MD at 1007 CC: [id number] DICTATION DATE: 11/04/172047 GM MOBILE: 11/05/17 0448 DIS IN 11/04/17 [place] [id number] [place] [address]
[~2017-10-30 21:05] MED LIST changes: +KRISTALOSE20 G/PKT PO
[2017-10-30 21:26] LABS: BASOPHILS 0.5 % (0-2); EOSINOPHILS 3.5 % (0-7); HEMATOCRIT 37.5 % (42.0-54.0); HEMOGLOBIN 12.8 g/dL (13.5-17.5); IMMATURE GRANULOCYTES 0.4 % (0-5); LYMPHOCYTES 46.9 % (15-50); MCH 30.9 pg (26.0-34.0); MCHC 34.1 g/dL (31.0-37.0); MCV 90.6 fL (80.0-100.0); MEAN PLATELET VOLUME 10.6 fL (7.4-10.4); MONOCYTES 11.7 % (2-11); PLATELET COUNT 238 10x3/uL (130-400); RBC 4.14 10x6/uL (4.20-6.10); RDW 12.6 % (11.5-14.5); WBC 7.8 10x3/uL (4.8-10.8)
[2017-10-30 21:43] LABS: ALBUMIN 3.2 g/dL (3.4-5.0); ANION GAP 11.1 mmol/L (8-16); BILIRUBIN - TOTAL 0.42 mg/dL (0.2-1.3); CALCIUM 8.7 mg/dL (8.5-10.1); CARBON DIOXIDE 29.6 mmol/L (21.0-32.0); CREATININE - SERUM 1.3 mg/dL (0.6-1.3); POTASSIUM - SERUM 3.7 mmol/L (3.5-5.1); PROTEIN - SERUM 6.2 g/dL (6.4-8.2)
[2017-10-31 00:07] LABS: APPEARANCE CLEAR (CLEAR); BILIRUBIN NEGATIVE (NEGATIVE); COLOR YELLOW (YELLOW); GLUCOSE NEGATIVE (NEGATIVE); KETONE NEGATIVE (NEGATIVE); NITRITE NEGATIVE (NEGATIVE); PROTEIN NEGATIVE (NEGATIVE); SPECIFIC GRAVITY 1.015 (1.005-1.020); UROBILINOGEN NORMAL (NORMAL)
[2017-10-31 00:29] LABS: UDS - AMPHET NEGATIVE QUAL (NEGATIVE); UDS - BARB NEGATIVE QUAL (NEGATIVE); UDS - BENZO NEGATIVE QUAL (NEGATIVE); UDS - COCAINE NEGATIVE QUAL (NEGATIVE); UDS - OPIATE POSITIVE QUAL (NEGATIVE); UDS - PCP NEGATIVE QUAL (NEGATIVE); UDS - THC NEGATIVE QUAL (NEGATIVE)
[2017-10-31] MEDS ORDERED: PROTONIX40 MG PO (03:45)
[2017-10-31] MEDS ORDERED: LEVSIN/ANASP0.125 MG PO (03:47)
[2017-10-31] MEDS ORDERED: SYMBICORT 80-10.2 GM INH (03:48)
[2017-10-31] MEDS ORDERED: CHRONULAC30 ML PO (03:52)
[2017-10-31 04:00] VITALS: BP 132/49
[2017-10-31 06:51] LABS: BASOPHILS 0.1 % (0-2); EOSINOPHILS 0.3 % (0-7); HEMATOCRIT 37.7 % (42.0-54.0); HEMOGLOBIN 12.7 g/dL (13.5-17.5); IMMATURE GRANULOCYTES 0.3 % (0-5); LYMPHOCYTES 17.5 % (15-50); MCH 30.5 pg (26.0-34.0); MCHC 33.7 g/dL (31.0-37.0); MCV 90.6 fL (80.0-100.0); MEAN PLATELET VOLUME 10.8 fL (7.4-10.4); NEUTROPHILS 75.8 % (40-80); PLATELET COUNT 248 10x3/uL (130-400); RBC 4.16 10x6/uL (4.20-6.10); RDW 12.9 % (11.5-14.5); WBC 7.8 10x3/uL (4.8-10.8)
[2017-10-31 07:10] LABS: ALBUMIN 3.3 g/dL (3.4-5.0); ALKALINE PHOSPHATASE 67 U/L (46-116); BILIRUBIN - TOTAL 0.57 mg/dL (0.2-1.3); CALCIUM 8.5 mg/dL (8.5-10.1); CARBON DIOXIDE 30.6 mmol/L (21.0-32.0); CHLORIDE - SERUM 104 mmol/L (98-107); CREATININE - SERUM 1.1 mg/dL (0.6-1.3); POTASSIUM - SERUM 4.2 mmol/L (3.5-5.1); PROTEIN - SERUM 6.3 g/dL (6.4-8.2); SODIUM 140 mmol/L (136-145); eGFR NON AFRICAN AMERICAN 87 mL/min (90-120)
[2017-10-31 07:12] LABS: ALT (SGPT) 51 U/L (10-68); CALC OSMOLALITY 276 mosm/kg (275-300); GLUCOSE 104 mg/dL (74-106); UREA NITROGEN 8 mg/dL (7-18)
[2017-10-31 15:09] VITALS: BMI 23.6
[2017-10-31 18:50] VITALS: BP 118/55
[2017-10-31 20:31] VITALS: BP 109/55
[2017-11-01] VITALS (7 sets, daily range): BP systolic 99–132; BP diastolic 47–63; Ht 175.3 cm; Wt 72.7 kg
[2017-11-02 06:11] VITALS: BP 106/50
[2017-11-02 08:27] VITALS: BP 116/53
[2017-11-02 16:14] VITALS: BP 118/55
[2017-11-02 21:00] VITALS: BP 131/67
[2017-11-03 06:28] VITALS: BP 106/61
[2017-11-03 11:10] VITALS: BP 104/60
[2017-11-03 15:21] VITALS: BP 125/76
[2017-11-03 21:12] VITALS: BP 105/52
[2017-11-04 06:12] VITALS: BP 93/45
[2017-11-04 18:39] VITALS: BP 116/56
[2017-11-04 20:00] VITALS: BP 120/75
== END 2017-11-04 22:57 | disposition home or self-care (01) ==
LOC: D.ER 21:05 → D.M2 10-31 01:34 → OBSVTIME 10-31 01:34 → D.EDHOLD 10-31 01:34 → D.M2 10-31 02:45 → D.SDCHOLD 11-04 04:31 → D.M2 11-04 04:31
PROVIDERS: Family Medicine
DX: K56.41 Fecal impaction (principal); R10.9 Unspecified abdominal pain; R11.0 Nausea; Z90.49 Acquired absence of other specified parts of digestive tract

== ENCOUNTER 2018-01-06 13:36 | Emergency (ER) | payer BC ==
[~2018-01-06] VITALS: Ht 175.3 cm; Wt 77.3 kg
[~2018-01-06 13:36] MED LIST changes: +CHRONULAC30 ML PO; +LEVSIN/ANASP0.125 MG PO; +PROTONIX40 MG PO; +SYMBICORT 80-10.2 GM INH
[2018-01-06 13:52] VITALS: Ht 175.3 cm; Wt 77.3 kg
[2018-01-06 14:17] LABS: BASOPHILS 0.5 % (0-2); EOSINOPHILS 2.7 % (0-7); HEMATOCRIT 37.5 % (42.0-54.0); HEMOGLOBIN 12.9 g/dL (13.5-17.5); IMMATURE GRANULOCYTES 0.2 % (0-5); LYMPHOCYTES 44.6 % (15-50); MCH 30.8 pg (26.0-34.0); MCHC 34.4 g/dL (31.0-37.0); MCV 89.5 fL (80.0-100.0); MEAN PLATELET VOLUME 10.6 fL (7.4-10.4); MONOCYTES 11.4 % (2-11); NEUTROPHILS 40.6 % (40-80); PLATELET COUNT 242 10x3/uL (130-400); RBC 4.19 10x6/uL (4.20-6.10); RDW 12.5 % (11.5-14.5); WBC 4.4 10x3/uL (4.8-10.8)
[2018-01-06 14:38] LABS: ALBUMIN 3.3 g/dL (3.4-5.0); ANION GAP 10.4 mmol/L (8-16); BILIRUBIN - TOTAL 0.51 mg/dL (0.2-1.3); CALCIUM 8.5 mg/dL (8.5-10.1); CARBON DIOXIDE 28.5 mmol/L (21.0-32.0); CREATININE - SERUM 1.3 mg/dL (0.6-1.3); POTASSIUM - SERUM 3.9 mmol/L (3.5-5.1); PROTEIN - SERUM 6.5 g/dL (6.4-8.2)
[2018-01-06 15:30] LABS: APPEARANCE CLEAR (CLEAR); BILIRUBIN NEGATIVE (NEGATIVE); COLOR YELLOW (YELLOW); GLUCOSE NEGATIVE (NEGATIVE); KETONE NEGATIVE (NEGATIVE); NITRITE NEGATIVE (NEGATIVE); PROTEIN 1+ mg/dL (NEGATIVE); RED CELLS - URINE NONE SEEN /hpf (0-5); UROBILINOGEN NORMAL (NORMAL); WHITE CELLS - URINE NSEEN /hpf (0-5)
[2018-01-06 15:31] LABS: BACTERIA NONE SEEN /hpf (NONE SEEN); EPITHELIAL CELLS NSEEN /hpf (0-5)
[2018-01-06] MEDS ORDERED: CHRONULAC30 ML PO (18:06)
[2018-01-06 18:25] VITALS: BP 122/72
== END 2018-01-06 18:26 | disposition home or self-care (01) ==
LOC: D.ER 13:36
PROVIDERS: Family Medicine
DX: R10.9 Unspecified abdominal pain (principal); K59.09 Other constipation; Z87.19 Personal history of other diseases of the digestive system; R11.0 Nausea

== ENCOUNTER 2018-01-08 11:49 | Inpatient (IN) | payer BC ==
[~2018-01-08] VITALS: Ht 175.3 cm; Wt 77.1 kg
--- NOTE | ~2018-01-08 | MORECARE ---
CASE MANAGEMENT DISCHARGE SUMMARY PATIENT: DANITZA MELENDREZ IV UNIT: [id number] ADM DATE: 01/08/18 AGE: 27 : [birth year] SEX: M ROOM/BED: D.2235 AUTHOR: ADRIANE QUAN PHYSICIAN: REFERRING PHYSICIAN: CARIN ABAD DO DATE OF SERVICE: 01/15/18 Discharge Plan Patient Name: DANITZA MELENDREZ Facility: [facility]:[place] : 1990 Planned Disposition: Anticipated Discharge Date: Discharge Date: Expected LOS: Initial Reviewer: [email or web address] Initial Review Date: 01/09/2018 Generated: 01/15/18 4:17 pm Comments DCP- Discharge Planning Updated by [email or web address]: Suzie Davis on 01/15/18 2:[address] Patient Name: DANITZA MELENDREZ Encounter No: [id number] : 1990 Primary Insurance: [employer] Anticipated DC Date: Planned Disposition: External Planned Provider: : DCP follow-up note: Patient in agreement with discharge plan. States his family will take him home. No changes to plan. Case management will follow and assist as needed. Suzie Davis DCP- Discharge Planning Updated by [email or web address]: Kitty Still on 01/09/18 12:[address] Patient Name: DANITZA MELENDREZ Admission Status: Elective Accout number: [id number] Admission Date: 01-08-2018 : 1990 Admission Diagnosis:UNSP INTESTNL OBST, UNSP TO PARTIAL VERSUS COMPLETE Attending: CARIN ABAD Current LOS: 1 Anticipated DC Date: Planned Disposition: Primary Insurance: [employer] Discharge Planning Comments: CM MET WITH PATIENT AND FAMILY ABOUT DC PLANNING/NEEDS. DENIES ANY NEEDS AT THIS TIME. I LEFT MY NUMBER WITH PATIENT AND FAMILY IF THEY NEED TO CALL ME. CM WILL FOLLOW AND ASSIST NEEDED WITH DC PLANNING/NEEDS. Pipe Straightener: Kitty Still DCPIA - Discharge Planning Initial Assessment Updated by [id number]: Kitty Still on 01/09/18 1:35 pm * Is the patient Alert and Oriented? Yes * PCP JENNIFFER * Pharmacy [facility] ON [address] * Preadmission Environment Home with Family * ADLs Independent * List name and contact numbers for known caregivers / representatives who currently or will assist patient after discharge: EVELIA JOHNSON, * Can the patient safely return to the preadmission environment? Yes * Has this patient been hospitalized within the prior 30 days at any hospital? No Last DP export: 01/09/18 12:47 Patient Name: DANITZA MELENDREZ Page [id number] at 1517 All edits/amendments must be made on the electronic document DICTATION DATE: 01/15/181516 ZIPPER SETTER: DELORES 01/15/181516 RPT#: [id number] DC DATE: STATUS: ADM IN [address] [place] [address] END OF REPORT
--- NOTE | ~2018-01-08 | MORECARE ---
CASE MANAGEMENT DISCHARGE SUMMARY PATIENT: DANITZA MELENDREZ IV UNIT: [id number] ADM DATE: 01/08/18 AGE: 27 : [birth year] SEX: M ROOM/BED: D.2235 AUTHOR: ADRIANE QUAN PHYSICIAN: REFERRING PHYSICIAN: CARIN ABAD DO DATE OF SERVICE: 01/16/18 Discharge Plan Patient Name: DANITZA MELENDREZ Facility: [facility]:[place] : 1990 Planned Disposition: Home Anticipated Discharge Date: Discharge Date: 01/15/2018 Expected LOS: 0 Initial Reviewer: [email or web address] Initial Review Date: 01/09/2018 Generated: 01/16/18 4:04 pm Comments DCP- Discharge Planning Updated by [email or web address]: Suzie Davis on 01/15/18 2:[address] Patient Name: DANITZA MELENDREZ Encounter No: [id number] : 1990 Primary Insurance: [employer] Anticipated DC Date: Planned Disposition: External Planned Provider: : DCP follow-up note: Patient in agreement with discharge plan. States his family will take him home. No changes to plan. Case management will follow and assist as needed. Suzie Davis DCP- Discharge Planning Updated by [email or web address]: Kitty Still on 01/09/18 12:[address] Patient Name: DANITZA MELENDREZ Admission Status: Elective Accout number: [id number] Admission Date: 01-08-2018 : 1990 Admission Diagnosis:UNSP INTESTNL OBST, UNSP TO PARTIAL VERSUS COMPLETE Attending: CARIN ABAD Current LOS: 1 Anticipated DC Date: Planned Disposition: Primary Insurance: [employer]A EMP Discharge Planning Comments: CM MET WITH PATIENT AND FAMILY ABOUT DC PLANNING/NEEDS. DENIES ANY NEEDS AT THIS TIME. I LEFT MY NUMBER WITH PATIENT AND FAMILY IF THEY NEED TO CALL ME. CM WILL FOLLOW AND ASSIST NEEDED WITH DC PLANNING/NEEDS. Tugboat Captain: Kitty Still DCPIA - Discharge Planning Initial Assessment Updated by [email or web address]: Kitty Still on 01/09/18 1:35 pm * Is the patient Alert and Oriented? Yes * PCP JENNIFFER * Pharmacy [facility] [address] * Preadmission Environment Home with Family * ADLs Independent * List name and contact numbers for known caregivers / representatives who currently or will assist patient after discharge: EVELIA JOHNSON, * Can the patient safely return to the preadmission environment? Yes * Has this patient been hospitalized within the prior 30 days at any hospital? No Last DP export: 01/15/18 2:17 Patient Name: DANITZA MELENDREZ Page 78038 at 1504 All edits/amendments must be made on the electronic document DICTATION DATE: 01/16/18 1504 FINAL INSPECTOR AND TESTER: DELORES 01/16/18 1504 RPT#: [id number] DC DATE:01/15/18 STATUS: DIS IN [facility] [address] [place] [address] END OF REPORT
--- NOTE | ~2018-01-08 | MORECARE ---
CASE MANAGEMENT DISCHARGE SUMMARY PATIENT: DANITZA MELENDREZ IV UNIT: [id number] ADM DATE: 01/08/18 AGE: 27 : [birth year] SEX: M ROOM/BED: D.2235 AUTHOR: ADRIANE QUAN PHYSICIAN: REFERRING PHYSICIAN: CARIN ABAD DO DATE OF SERVICE: 01/09/18 Discharge Plan Patient Name: DANITZA MELENDREZ Facility: [facility]:[place] : 1990 Planned Disposition: Anticipated Discharge Date: Discharge Date: Expected LOS: Initial Reviewer: [email or web address] Initial Review Date: 01/09/2018 Generated: 01/09/18 2:47 pm Comments DCP- Discharge Planning Updated by [email or web address]: Kitty Still on 01/09/18 12:[address] Patient Name: DANITZA MELENDREZ Admission Status: Elective Accout number: [id number] Admission Date: 01-08-2018 : 1990 Admission Diagnosis:UNSP INTESTNL OBST, UNSP TO PARTIAL VERSUS COMPLETE Attending: CARIN ABAD Current LOS: 1 Anticipated DC Date: Planned Disposition: Primary Insurance: [employer] [facility] Discharge Planning Comments: CM MET WITH PATIENT AND FAMILY ABOUT DC PLANNING/NEEDS. DENIES ANY NEEDS AT THIS TIME. I LEFT MY NUMBER WITH PATIENT AND FAMILY IF THEY NEED TO CALL ME. CM WILL FOLLOW AND ASSIST NEEDED WITH DC PLANNING/NEEDS. Oracle Software Engineer: Kitty Still DCPIA - Discharge Planning Initial Assessment Updated by [email or web address]: Kitty Still on 01/09/18 1:35 pm * Is the patient Alert and Oriented? Yes * PCP JENNIFFER * Pharmacy [facility] [address] * Preadmission Environment Home with Family * ADLs Independent * List name and contact numbers for known caregivers / representatives who currently or will assist patient after discharge: EVELIA JOHNSON, * Can the patient safely return to the preadmission environment? Yes * Has this patient been hospitalized within the prior 30 days at any hospital? No Last DP export: 01/09/18 12:35 Patient Name: DANITZA MELENDREZ Page 91556 at 1347 All edits/amendments must be made on the electronic document DICTATION DATE: 01/09/18 134 WASH TANK TENDER: DELORES 01/09/18 1346 RPT#: [id number] [place] DATE: STATUS: ADM IN [facility] [address] [place] [address] END OF REPORT
--- NOTE | ~2018-01-08 | MORECARE ---
CASE MANAGEMENT DISCHARGE SUMMARY PATIENT: DANITZA MELENDREZ IV UNIT: [id number] ADM DATE: 01/08/18 AGE: 27 : [birth year] SEX: M ROOM/BED: D.2235 AUTHOR: ADRIANE QUAN PHYSICIAN: REFERRING PHYSICIAN: CARIN ABAD DO DATE OF SERVICE: 01/09/18 Discharge Plan Patient Name: DANITZA MELENDREZ Facility: [facility]:[place] : 1990 Planned Disposition: Anticipated Discharge Date: Discharge Date: Expected LOS: Initial Reviewer: [email or web address] Initial Review Date: 01/09/2018 Generated: 01/09/18 2:35 pm Patient Name: DANITZA MELENDREZ Page 35332 at 1335 All edits/amendments must be made on the electronic document DICTATION DATE: 01/09/18 1335 MCAT TUTOR: DELORES 01/09/18 1335 RPT#: [id number] DC DATE: STATUS: ADM IN [facility] [address] [place] [address] END OF REPORT
[2018-01-08 13:22] LABS: BASOPHILS 0.2 % (0-2); EOSINOPHILS 2.9 % (0-7); HEMOGLOBIN 12.9 g/dL (13.5-17.5); IMMATURE GRANULOCYTES 0.2 % (0-5); LYMPHOCYTES 35.6 % (15-50); MCH 30.1 pg (26.0-34.0); MCHC 33.9 g/dL (31.0-37.0); MCV 88.8 fL (80.0-100.0); MEAN PLATELET VOLUME 10.3 fL (7.4-10.4); MONOCYTES 15.9 % (2-11); NEUTROPHILS 45.2 % (40-80); PLATELET COUNT 246 10x3/uL (130-400); RBC 4.28 10x6/uL (4.20-6.10); RDW 12.3 % (11.5-14.5); WBC 4.1 10x3/uL (4.8-10.8)
[2018-01-08 13:34] LABS: ALBUMIN 3.3 g/dL (3.4-5.0); ALKALINE PHOSPHATASE 108 U/L (46-116); BILIRUBIN - TOTAL 0.28 mg/dL (0.2-1.3); CALC OSMOLALITY 279 mosm/kg (275-300); CALCIUM 9.3 mg/dL (8.5-10.1); CARBON DIOXIDE 28.7 mmol/L (21.0-32.0); CHLORIDE - SERUM 105 mmol/L (98-107); CREATININE - SERUM 1.2 mg/dL (0.6-1.3); GLUCOSE 99 mg/dL (74-106); POTASSIUM - SERUM 4.4 mmol/L (3.5-5.1); PROTEIN - SERUM 6.6 g/dL (6.4-8.2); SODIUM 140 mmol/L (136-145); UREA NITROGEN 16 mg/dL (7-18); eGFR NON AFRICAN AMERICAN 78 mL/min (90-120)
[2018-01-08 13:35] LABS: ALT (SGPT) 42 U/L (10-68)
[2018-01-08 14:09] VITALS: BP 129/71; BMI 25.1
[2018-01-08 16:30] VITALS: BP 101/56
[2018-01-08 20:00] VITALS: BP 176/62
[2018-01-09 04:00] VITALS: BP 123/63
[2018-01-09 04:55] LABS: BASOPHILS 0.4 % (0-2); EOSINOPHILS 0.7 % (0-7); HEMATOCRIT 39.7 % (42.0-54.0); HEMOGLOBIN 13.5 g/dL (13.5-17.5); IMMATURE GRANULOCYTES 0.4 % (0-5); LYMPHOCYTES 21.9 % (15-50); MCH 30.7 pg (26.0-34.0); MCV 90.2 fL (80.0-100.0); MEAN PLATELET VOLUME 11.3 fL (7.4-10.4); MONOCYTES 12.1 % (2-11); NEUTROPHILS 64.5 % (40-80); PLATELET COUNT 282 10x3/uL (130-400); RDW 12.4 % (11.5-14.5)
[2018-01-09 05:01] LABS: ALBUMIN 3.7 g/dL (3.4-5.0); ALKALINE PHOSPHATASE 113 U/L (46-116); ALT (SGPT) 43 U/L (10-68); BILIRUBIN - TOTAL 0.77 mg/dL (0.2-1.3); CALC OSMOLALITY 279 mosm/kg (275-300); CALCIUM 8.7 mg/dL (8.5-10.1); CARBON DIOXIDE 31.2 mmol/L (21.0-32.0); CHLORIDE - SERUM 102 mmol/L (98-107); CREATININE - SERUM 1.2 mg/dL (0.6-1.3); GLUCOSE 110 mg/dL (74-106); POTASSIUM - SERUM 4.1 mmol/L (3.5-5.1); PROTEIN - SERUM 7.2 g/dL (6.4-8.2); SODIUM 139 mmol/L (136-145); UREA NITROGEN 15 mg/dL (7-18); eGFR NON AFRICAN AMERICAN 78 mL/min (90-120)
[2018-01-09 05:03] LABS: WBC 5.6 10x3/uL (4.8-10.8)
[2018-01-09 09:23] VITALS: BP 117/60
[2018-01-09 13:09] VITALS: Ht 175.3 cm; Wt 77.1 kg
[2018-01-09 16:28] VITALS: BP 133/81
[2018-01-09 20:00] VITALS: BP 102/56
[2018-01-10 06:08] VITALS: BP 106/48
[2018-01-10 09:02] VITALS: BP 106/61
[2018-01-10 13:03] VITALS: BP 104/53
[2018-01-10 16:05] VITALS: BP 133/82
[2018-01-10 20:00] VITALS: BP 107/66
[2018-01-11 04:52] VITALS: BP 117/53
[2018-01-11 08:52] VITALS: BP 104/53
[2018-01-11 13:28] VITALS: BP 112/57
[2018-01-11 17:53] VITALS: BP 110/59
[2018-01-12 05:18] VITALS: BP 112/66
[2018-01-12 08:57] VITALS: BP 115/64
[2018-01-12 12:30] VITALS: BP 110/71
[2018-01-12 16:29] VITALS: BP 108/74
[2018-01-13 05:10] VITALS: BP 122/61
[2018-01-13 05:37] LABS: BASOPHILS 0.4 % (0-2); EOSINOPHILS 2.6 % (0-7); HEMOGLOBIN 12.5 g/dL (13.5-17.5); IMMATURE GRANULOCYTES 0.4 % (0-5); LYMPHOCYTES 46.8 % (15-50); MCH 30.5 pg (26.0-34.0); MCHC 34.7 g/dL (31.0-37.0); MCV 87.8 fL (80.0-100.0); MEAN PLATELET VOLUME 11.2 fL (7.4-10.4); MONOCYTES 8.6 % (2-11); NEUTROPHILS 41.2 % (40-80); RDW 12.2 % (11.5-14.5); WBC 5.5 10x3/uL (4.8-10.8)
[2018-01-13 05:43] LABS: PLATELET COUNT 221 10x3/uL (130-400)
[2018-01-13 06:00] LABS: ALBUMIN 2.9 g/dL (3.4-5.0); BILIRUBIN - TOTAL 0.28 mg/dL (0.2-1.3); CALCIUM 8.7 mg/dL (8.5-10.1); CARBON DIOXIDE 28.9 mmol/L (21.0-32.0); CREATININE - SERUM 1.3 mg/dL (0.6-1.3); POTASSIUM - SERUM 3.9 mmol/L (3.5-5.1); PROTEIN - SERUM 5.8 g/dL (6.4-8.2)
[2018-01-13 09:40] VITALS: BP 102/66
[2018-01-13 16:36] VITALS: BP 109/71
[2018-01-13 20:05] VITALS: BP 118/72
[2018-01-14 05:25] VITALS: BP 147/84
[2018-01-14 05:54] LABS: BASOPHILS 0.2 % (0-2); EOSINOPHILS 3.2 % (0-7); HEMATOCRIT 36.5 % (42.0-54.0); HEMOGLOBIN 12.6 g/dL (13.5-17.5); IMMATURE GRANULOCYTES 0.2 % (0-5); MCH 30.4 pg (26.0-34.0); MCHC 34.5 g/dL (31.0-37.0); MCV 88.2 fL (80.0-100.0); MEAN PLATELET VOLUME 10.8 fL (7.4-10.4); MONOCYTES 10.3 % (2-11); NEUTROPHILS 47.1 % (40-80); PLATELET COUNT 225 10x3/uL (130-400); RBC 4.14 10x6/uL (4.20-6.10); RDW 12.3 % (11.5-14.5)
[2018-01-14 06:18] LABS: ANION GAP 10.4 mmol/L (8-16); CALCIUM 8.8 mg/dL (8.5-10.1); CARBON DIOXIDE 29.5 mmol/L (21.0-32.0); CREATININE - SERUM 1.3 mg/dL (0.6-1.3); POTASSIUM - SERUM 3.9 mmol/L (3.5-5.1)
[2018-01-14 08:24] VITALS: BP 112/81
[2018-01-14 14:21] VITALS: BP 112/61
[2018-01-14 19:42] VITALS: BP 113/64
[2018-01-15 04:09] LABS: BASOPHILS 0.2 % (0-2); EOSINOPHILS 3.9 % (0-7); HEMATOCRIT 36.6 % (42.0-54.0); HEMOGLOBIN 12.6 g/dL (13.5-17.5); IMMATURE GRANULOCYTES 0.2 % (0-5); LYMPHOCYTES 52.4 % (15-50); MCH 30.6 pg (26.0-34.0); MCHC 34.4 g/dL (31.0-37.0); MCV 88.8 fL (80.0-100.0); MEAN PLATELET VOLUME 10.4 fL (7.4-10.4); NEUTROPHILS 31.3 % (40-80); PLATELET COUNT 230 10x3/uL (130-400); RBC 4.12 10x6/uL (4.20-6.10); RDW 12.5 % (11.5-14.5); WBC 4.4 10x3/uL (4.8-10.8)
[2018-01-15 04:17] LABS: ANION GAP 9.2 mmol/L (8-16); CALCIUM 8.6 mg/dL (8.5-10.1); CARBON DIOXIDE 30.5 mmol/L (21.0-32.0); CREATININE - SERUM 1.3 mg/dL (0.6-1.3); POTASSIUM - SERUM 3.7 mmol/L (3.5-5.1)
[2018-01-15 05:20] VITALS: BP 103/55
[2018-01-15 07:59] VITALS: BP 112/62
[2018-01-15 12:11] VITALS: BP 134/64
[2018-01-15] MEDS ORDERED: PHENERGAN25 MG/ML IM (13:40)
[2018-01-15 17:01] VITALS: BP 121/73
== END 2018-01-15 17:07 | disposition home or self-care (01) | DRG 392 ==
LOC: D.MS 11:49
PROVIDERS: Family Medicine
DX: K59.09 Other constipation (principal); K56.609 Unspecified intestinal obstruction, unspecified as to partial versus complete obstruction; R11.2 Nausea with vomiting, unspecified

== ENCOUNTER 2018-03-30 16:21 | Inpatient (IN) | payer BC ==
[~2018-03-30] VITALS: Ht 175.3 cm; Wt 72.6 kg
[~2018-03-30 16:21] MED LIST changes: +PHENERGAN25 MG/ML IM
[2018-03-30 18:27] VITALS: BP 124/62; BMI 23.6
[2018-03-30 18:44] LABS: BASOPHILS 0.5 % (0-2); EOSINOPHILS 2.9 % (0-7); HEMATOCRIT 36.2 % (42.0-54.0); HEMOGLOBIN 12.1 g/dL (13.5-17.5); IMMATURE GRANULOCYTES 0.2 % (0-5); LYMPHOCYTES 46.6 % (15-50); MCH 30.1 pg (26.0-34.0); MCHC 33.4 g/dL (31.0-37.0); MEAN PLATELET VOLUME 10.6 fL (7.4-10.4); MONOCYTES 8.6 % (2-11); NEUTROPHILS 41.2 % (40-80); PLATELET COUNT 230 10x3/uL (130-400); RBC 4.02 10x6/uL (4.20-6.10); RDW 12.8 % (11.5-14.5); WBC 6.3 10x3/uL (4.8-10.8)
[2018-03-30 19:05] LABS: ALBUMIN 3.3 g/dL (3.4-5.0); ANION GAP 13.1 mmol/L (8-16); BILIRUBIN - TOTAL 0.31 mg/dL (0.2-1.3); CALCIUM 8.7 mg/dL (8.5-10.1); CREATININE - SERUM 1.5 mg/dL (0.6-1.3); POTASSIUM - SERUM 4.1 mmol/L (3.5-5.1); PROTEIN - SERUM 6.3 g/dL (6.4-8.2)
[2018-03-30 20:28] VITALS: BP 128/68
[2018-03-30 20:40] LABS: APPEARANCE CLEAR (CLEAR); BILIRUBIN NEGATIVE (NEGATIVE); COLOR YELLOW (YELLOW); GLUCOSE NEGATIVE (NEGATIVE); KETONE NEGATIVE (NEGATIVE); NITRITE NEGATIVE (NEGATIVE); PROTEIN NEGATIVE (NEGATIVE); SPECIFIC GRAVITY 1.015 (1.005-1.020); UROBILINOGEN NORMAL (NORMAL)
[2018-03-31 00:30] VITALS: BP 115/49
[2018-03-31 04:58] VITALS: BP 110/45
[2018-03-31 08:17] LABS: ALKALINE PHOSPHATASE 67 U/L (46-116); BILIRUBIN - TOTAL 0.25 mg/dL (0.2-1.3); CALC OSMOLALITY 284 mosm/kg (275-300); CALCIUM 7.7 mg/dL (8.5-10.1); CARBON DIOXIDE 26.5 mmol/L (21.0-32.0); CHLORIDE - SERUM 105 mmol/L (98-107); GLUCOSE 135 mg/dL (74-106); POTASSIUM - SERUM 3.9 mmol/L (3.5-5.1); PROTEIN - SERUM 6.4 g/dL (6.4-8.2); SODIUM 142 mmol/L (136-145); UREA NITROGEN 13 mg/dL (7-18); eGFR NON AFRICAN AMERICAN > 90 mL/min (90-120)
[2018-03-31 08:18] LABS: ALBUMIN 2.1 g/dL (3.4-5.0)
[2018-03-31 08:27] LABS: ALT (SGPT) 45 U/L (10-68)
[2018-03-31 08:34] VITALS: BP 109/59
[2018-03-31 09:55] LABS: BASOPHILS 0.7 % (0-2); EOSINOPHILS 3.5 % (0-7); HEMATOCRIT 40.9 % (42.0-54.0); HEMOGLOBIN 14.1 g/dL (13.5-17.5); IMMATURE GRANULOCYTES 0.2 % (0-5); LYMPHOCYTES 47.8 % (15-50); MCH 31.1 pg (26.0-34.0); MCHC 34.5 g/dL (31.0-37.0); MCV 90.1 fL (80.0-100.0); MEAN PLATELET VOLUME 10.4 fL (7.4-10.4); MONOCYTES 6.8 % (2-11); PLATELET COUNT 260 10x3/uL (130-400); RBC 4.54 10x6/uL (4.20-6.10); RDW 12.8 % (11.5-14.5); WBC 4.3 10x3/uL (4.8-10.8)
[2018-03-31 12:46] VITALS: BMI 23.6
[2018-03-31 21:45] VITALS: BP 107/65
[2018-03-31 22:17] VITALS: Ht 175.3 cm; Wt 72.6 kg
[2018-04-01 04:37] VITALS: BP 103/37
[2018-04-01 06:41] LABS: BASOPHILS 0.3 % (0-2); HEMATOCRIT 37.5 % (42.0-54.0); HEMOGLOBIN 12.2 g/dL (13.5-17.5); IMMATURE GRANULOCYTES 0.2 % (0-5); LYMPHOCYTES 34.1 % (15-50); MCH 30.2 pg (26.0-34.0); MCHC 32.5 g/dL (31.0-37.0); MEAN PLATELET VOLUME 10.6 fL (7.4-10.4); MONOCYTES 8.7 % (2-11); NEUTROPHILS 53.7 % (40-80); PLATELET COUNT 252 10x3/uL (130-400); RBC 4.04 10x6/uL (4.20-6.10); RDW 12.7 % (11.5-14.5)
[2018-04-01 06:47] LABS: WBC 5.7 10x3/uL (4.8-10.8)
[2018-04-01 06:48] LABS: MCV 92.8 fL (80.0-100.0)
[2018-04-01 06:57] LABS: ANION GAP 11.5 mmol/L (8-16); CALCIUM 8.3 mg/dL (8.5-10.1); CARBON DIOXIDE 28.5 mmol/L (21.0-32.0); CREATININE - SERUM 1.3 mg/dL (0.6-1.3)
[2018-04-01 09:08] VITALS: BP 99/45
[2018-04-01 16:00] VITALS: BP 107/58
[2018-04-01 20:00] VITALS: BP 115/50
[2018-04-02] VITALS: BP 111/55
[2018-04-02 04:00] VITALS: BP 113/65
[2018-04-02 06:51] LABS: BASOPHILS 0.4 % (0-2); EOSINOPHILS 3.6 % (0-7); HEMATOCRIT 35.3 % (42.0-54.0); HEMOGLOBIN 11.7 g/dL (13.5-17.5); LYMPHOCYTES 42.6 % (15-50); MCH 30.4 pg (26.0-34.0); MCHC 33.1 g/dL (31.0-37.0); MCV 91.7 fL (80.0-100.0); MEAN PLATELET VOLUME 10.6 fL (7.4-10.4); MONOCYTES 12.6 % (2-11); NEUTROPHILS 40.8 % (40-80); PLATELET COUNT 232 10x3/uL (130-400); RBC 3.85 10x6/uL (4.20-6.10); RDW 12.7 % (11.5-14.5); WBC 4.8 10x3/uL (4.8-10.8)
[2018-04-02 07:00] LABS: CALC OSMOLALITY 278 mosm/kg (275-300); CALCIUM 8.3 mg/dL (8.5-10.1); CARBON DIOXIDE 27.9 mmol/L (21.0-32.0); CHLORIDE - SERUM 106 mmol/L (98-107); CREATININE - SERUM 1.2 mg/dL (0.6-1.3); GLUCOSE 117 mg/dL (74-106); POTASSIUM - SERUM 4.2 mmol/L (3.5-5.1); SODIUM 140 mmol/L (136-145); UREA NITROGEN 11 mg/dL (7-18); eGFR NON AFRICAN AMERICAN 78 mL/min (90-120)
[2018-04-02 08:24] VITALS: BP 106/58
[2018-04-02 12:00] VITALS: BP 121/64
--- NOTE | 2018-04-02 14:36 | MORECARE ---
CASE MANAGEMENT DISCHARGE SUMMARY PATIENT: DANITZA MELENDREZ IV UNIT: [id number] ADM DATE: 03/30/18 AGE: 27 : [birth year] SEX: M ROOM/BED: D.2232 AUTHOR: ADRIANE QUAN PHYSICIAN: REFERRING PHYSICIAN: CARIN ABAD DO DATE OF SERVICE: 04/02/18 Discharge Plan Patient Name: DANITZA MELENDREZ Facility: [facility]:[place] : 1990 Planned Disposition: Home Anticipated Discharge Date: Discharge Date: Expected LOS: Initial Reviewer: [email or web address] Initial Review Date: 04/02/2018 Generated: 04/02/18 3:36 pm Patient Name: DANITZA MELENDREZ Page 28918 at 1436 All edits/amendments must be made on the electronic document DICTATION DATE: 04/02/18 1435 RN SURGERY: DELORES 04/02/18 1435 RPT#: [id number] DC DATE: STATUS: ADM IN [facility] [address] [place] [address] END OF REPORT
--- NOTE | 2018-04-02 14:45 | MORECARE ---
CASE MANAGEMENT DISCHARGE SUMMARY PATIENT: DANITZA MELENDREZ IV UNIT: [id number] ADM DATE: 03/30/18 AGE: 27 : [birth year] SEX: M ROOM/BED: D.2232 AUTHOR: ADRIANE QUAN PHYSICIAN: REFERRING PHYSICIAN: CARIN ABAD DO DATE OF SERVICE: 04/02/18 Discharge Plan Patient Name: DANITZA MELENDREZ [facility] : 1990 Planned Disposition: Home Anticipated Discharge Date: Discharge Date: Expected LOS: Initial Reviewer: [email or web address] Initial Review Date: 04/02/2018 Generated: 04/02/18 3:44 pm DCPIA - Discharge Planning Initial Assessment Updated by [email or web address]: Suzie Davis on 04/02/18 2:37 pm * Is the patient Alert and Oriented? Yes * How many steps to enter\exit or inside your home? 0/0 * PCP Dr. Abad * Pharmacy [facility] on [address] * Preadmission Environment Home with Family * ADLs Independent * Equipment None * List name and contact numbers for known caregivers / representatives who currently or will assist patient after discharge: [facility] - [phone] * Verbal permission to speak to the caregivers and representatives has been obtained from the patient. Yes * Community resources currently utilized None * Additional services required to return to the preadmission environment? No * Can the patient safely return to the preadmission environment? Yes * Has this patient been hospitalized within the prior 30 days at any hospital? No Last DP export: 04/02/18 1:36 pm Patient Name: DANITZA MELENDREZ Page 00163 at 1445 All edits/amendments must be made on the electronic document DICTATION DATE: 04/02/18 144 BLENDER LABORER: DELORES 04/02/18 1444 RPT#: [id number] DC DATE: STATUS: ADM IN [facility] [address] [place] [address] END OF REPORT
--- NOTE | 2018-04-02 14:54 | MORECARE ---
CASE MANAGEMENT DISCHARGE SUMMARY PATIENT: DANITZA MELENDREZ IV UNIT: [id number] ADM DATE: 03/30/18 AGE: 27 : [birth year] SEX: M ROOM/BED: D.2232 AUTHOR: [email or web address] PHYSICIAN: REFERRING PHYSICIAN: CARIN ABAD DO DATE OF SERVICE: 04/02/18 Discharge Plan Patient Name: DANITZA MELENDREZ Facility: [facility]:[place] : 1990 Planned Disposition: Home Anticipated Discharge Date: Discharge Date: Expected LOS: Initial Reviewer: [email or web address] Initial Review Date: 04/02/2018 Generated: 04/02/18 3:54 pm DCP- Discharge Planning Updated by [email or web address]: Suzie Davis on 04/02/18 1:[address] Patient Name: DANITZA MELENDREZ Admission Status: Elective Accout number: [id number] Admission Date: 03-30-2018 : 1990 Admission Diagnosis: Attending: CARIN ABAD Current LOS: 3 Anticipated DC Date: Planned Disposition: Home Primary Insurance: [employer] [facility] Discharge Planning Comments: CM met with patient to discuss discharge planning. He states he lives with his mother. States he is independent with all ADL's and IADL's. States his family will take him home on discharge. States he does not have any DME or need any DME. Declines need for HHS. No needs identified. CM will continue to follow and assist with discharge planning/needs. Product Sales Engineer: Suzie Davis DCPIA - Discharge Planning Initial Assessment Updated by [email or web address]: Suzie Davis on 04/02/18 2:37 pm * Is the patient Alert and Oriented? Yes * How many steps to enter\exit or inside your home? 0/0 * PCP Dr. Abad * Pharmacy [facility] on [address] * Preadmission Environment Home with Family * ADLs Independent * Equipment None * List name and contact numbers for known caregivers / representatives who currently or will assist patient after discharge: Geeta [facility] - [phone] * Verbal permission to speak to the caregivers and representatives has been obtained from the patient. Yes * Community resources currently utilized None * Additional services required to return to the preadmission environment? No * Can the patient safely return to the preadmission environment? Yes * Has this patient been hospitalized within the prior 30 days at any hospital? No Last DP export: 04/02/18 1:44 pm Patient Name: DANITZA MELENDREZ Page 68643 at 1454 All edits/amendments must be made on the electronic document DICTATION DATE: 04/02/181452 VOLUNTEER PATIENT REPRESENTATIVE: DELORES 04/02/181452 RPT#: [id number] DC DATE: STATUS: ADM IN [facility] [address] [place] [address] END OF REPORT
[2018-04-02] MEDS ORDERED: MIRALAX17 GM PO (15:05)
[2018-04-02 16:13] VITALS: BP 115/60
[2018-04-03] VITALS: BP 124/73
[2018-04-03 06:19] LABS: ANION GAP 12.8 mmol/L (8-16); CALCIUM 8.6 mg/dL (8.5-10.1); CARBON DIOXIDE 29.1 mmol/L (21.0-32.0); CREATININE - SERUM 1.3 mg/dL (0.6-1.3); POTASSIUM - SERUM 3.9 mmol/L (3.5-5.1)
[2018-04-03 06:52] LABS: BASOPHILS 0.4 % (0-2); EOSINOPHILS 3.2 % (0-7); HEMATOCRIT 34.6 % (42.0-54.0); HEMOGLOBIN 11.5 g/dL (13.5-17.5); IMMATURE GRANULOCYTES 0.2 % (0-5); LYMPHOCYTES 32.1 % (15-50); MCH 30.3 pg (26.0-34.0); MCHC 33.2 g/dL (31.0-37.0); MCV 91.3 fL (80.0-100.0); MEAN PLATELET VOLUME 10.6 fL (7.4-10.4); MONOCYTES 13.1 % (2-11); PLATELET COUNT 242 10x3/uL (130-400); RBC 3.79 10x6/uL (4.20-6.10); RDW 12.6 % (11.5-14.5)
[2018-04-03 08:15] VITALS: BP 140/72
--- NOTE | 2018-04-03 09:29 | MORECARE ---
CASE MANAGEMENT DISCHARGE SUMMARY PATIENT: DANITZA MELENDREZ IV UNIT: [id number] ADM DATE: 03/30/18 AGE: 27 : [birth year] SEX: M ROOM/BED: D.2232 AUTHOR: ADRIANE QUAN PHYSICIAN: REFERRING PHYSICIAN: CARIN ABAD DO DATE OF SERVICE: 04/03/18 Discharge Plan Patient Name: DANITZA MELENDREZ Facility: [facility]:[place] : 1990 Planned Disposition: Home Anticipated Discharge Date: Discharge Date: Expected LOS: Initial Reviewer: [email or web address] Initial Review Date: 04/02/2018 Generated: 04/03/18 10:29 am Comments DCP- Discharge Planning Updated by [email or web address]: Suzie Davis on 04/03/18 8:[address] Patient Name: DANITZA MELENDREZ Encounter No: [id number] : 1990 Primary Insurance: [employer] Anticipated DC Date: Planned Disposition: Home External Planned Provider: : DCP follow-up note: Patient and family in agreement with discharge plan. No changes to plan. Case management will follow and assist as needed. Suzie Davis DCP- Discharge Planning Updated by [email or web address]: Suzie Davis on 04/02/18 1:[address] Patient Name: DANITZA MELENDREZ Admission Status: Elective Accout number: [id number] Admission Date: 03-30-2018 : 1990 Admission Diagnosis: Attending: CARIN ABAD Current LOS: 3 Anticipated DC Date: Planned Disposition: Home Primary Insurance: [employer] Discharge Planning Comments: CM met with patient to discuss discharge planning. He states he lives with his mother. States he is independent with all ADL's and IADL's. States his family will take him home on discharge. States he does not have any DME or need any DME. Declines need for HHS. No needs identified. CM will continue to follow and assist with discharge planning/needs. Fleet Sales Associate: Suzie Davis DCPIA - Discharge Planning Initial Assessment Updated by [email or web address]: Suzie Davis on 04/02/18 2:37 pm * Is the patient Alert and Oriented? Yes * How many steps to enter\exit or inside your home? 0/0 * PCP Dr. Abad * Pharmacy [facility] on [address] * Preadmission Environment Home with Family * ADLs Independent * Equipment None * List name and contact numbers for known caregivers / representatives who currently or will assist patient after discharge: Geeta Fournier [facility] [place] [phone] * Verbal permission to speak to the caregivers and representatives has been obtained from the patient. Yes * Community resources currently utilized None * Additional services required to return to the preadmission environment? No * Can the patient safely return to the preadmission environment? Yes * Has this patient been hospitalized within the prior 30 days at any hospital? No Last DP export: 04/02/18 1:54 pm Patient Name: DANITZA MELENDREZ Page 74738 at 0929 All edits/amendments must be made on the electronic document DICTATION DATE: 04/03/18927 NPS: DELORES 04/03/18927 RPT#: [id number] DC DATE: STATUS: ADM IN [facility] [address] [place] [address] END OF REPORT
--- NOTE | 2018-04-04 16:36 | MORECARE ---
CASE MANAGEMENT DISCHARGE SUMMARY PATIENT: DANITZA MELENDREZ IV UNIT: [id number] ADM DATE: 03/30/18 AGE: 27 : [birth year] SEX: M ROOM/BED: D.2232 AUTHOR: ADRIANE QUAN PHYSICIAN: REFERRING PHYSICIAN: CARIN ABAD DO DATE OF SERVICE: 04/04/18 Discharge Plan Patient Name: DANITZA MELENDREZ Facility: [facility]:[place] : 1990 Planned Disposition: Home Anticipated Discharge Date: Discharge Date: 04/03/2018 Expected LOS: 0 Initial Reviewer: [email or web address] Initial Review Date: 04/02/2018 Generated: 04/04/18 5:36 pm Comments DCP- Discharge Planning Updated by [email or web address]: Suzie Davis on 04/03/18 8:[address] Patient Name: DANITZA MELENDREZ Encounter No: [id number] : 1990 Primary Insurance: [employer]LL[employer] EMP Anticipated DC Date: Planned Disposition: Home External Planned Provider: : DCP follow-up note: Patient and family in agreement with discharge plan. No changes to plan. Case management will follow and assist as needed. Suzie Davis DCP- Discharge Planning Updated by [email or web address]: Suzie Davis on 04/02/18 1:[address] Patient Name: DANITZA MELENDREZ Admission Status: Elective Accout number: [id number] Admission Date: 03-30-2018 : 1990 Admission Diagnosis: Attending: CARIN ABAD Current LOS: 3 Anticipated DC Date: Planned Disposition: Home Primary Insurance: [employer] Discharge Planning Comments: CM met with patient to discuss discharge planning. He states he lives with his mother. States he is independent with all ADL's and IADL's. States his family will take him home on discharge. States he does not have any DME or need any DME. Declines need for HHS. No needs identified. CM will continue to follow and assist with discharge planning/needs. Disease And Insect Control Boss: Suzie Davis DCPIA - Discharge Planning Initial Assessment Updated by [email or web address]: Suzie Davis on 04/02/18 2:37 pm * Is the patient Alert and Oriented? Yes * How many steps to enter\exit or inside your home? 0/0 * PCP Dr. Abad * Pharmacy [facility] on [address] * Preadmission Environment Home with Family * ADLs Independent * Equipment None * List name and contact numbers for known caregivers / representatives who currently or will assist patient after discharge: Geeta Fournier [facility] [place] - [phone] * Verbal permission to speak to the caregivers and representatives has been obtained from the patient. Yes * Community resources currently utilized None * Additional services required to return to the preadmission environment? No * Can the patient safely return to the preadmission environment? Yes * Has this patient been hospitalized within the prior 30 days at any hospital? No Last DP export: 04/03/18 8:29 am Patient Name: DANTIZA MELENDREZ Page 23830 at 1636 All edits/amendments must be made on the electronic document DICTATION DATE: 04/04/18 1635 DEBT COLLECTION SPECIALIST: DELORES 04/04/18 1635 RPT#: [id number] DC DATE:04/03/18 STATUS: DIS IN [facility] [address] [place] [address] END OF REPORT
== END 2018-04-03 10:37 | disposition home or self-care (01) | DRG 392 ==
LOC: D.SDCHOLD 16:21 → D.MS 16:21
PROVIDERS: Internal Medicine Nephrology; ADMIT Family Medicine
DX: K59.09 Other constipation (principal); K63.89 Other specified diseases of intestine

== ENCOUNTER 2018-04-24 11:06 | Emergency (ER) | payer BC ==
[~2018-04-24] VITALS: Ht 175.3 cm; Wt 80.9 kg
[2018-04-24 11:11] VITALS: Ht 175.3 cm; Wt 80.9 kg
[2018-04-24 11:38] LABS: BASOPHILS 0.2 % (0-2); EOSINOPHILS 0.5 % (0-7); HEMATOCRIT 37.5 % (42.0-54.0); HEMOGLOBIN 12.7 g/dL (13.5-17.5); IMMATURE GRANULOCYTES 0.2 % (0-5); LYMPHOCYTES 25.8 % (15-50); MCH 30.5 pg (26.0-34.0); MCHC 33.9 g/dL (31.0-37.0); MCV 90.1 fL (80.0-100.0); MEAN PLATELET VOLUME 10.7 fL (7.4-10.4); MONOCYTES 8.3 % (2-11); PLATELET COUNT 254 10x3/uL (130-400); RBC 4.16 10x6/uL (4.20-6.10); RDW 12.9 % (11.5-14.5); WBC 5.8 10x3/uL (4.8-10.8)
[2018-04-24 11:51] LABS: ALBUMIN 3.7 g/dL (3.4-5.0); ALKALINE PHOSPHATASE 110 U/L (46-116); ALT (SGPT) 50 U/L (10-68); BILIRUBIN - TOTAL 0.69 mg/dL (0.2-1.3); CALC OSMOLALITY 279 mosm/kg (275-300); CALCIUM 8.7 mg/dL (8.5-10.1); CARBON DIOXIDE 27.2 mmol/L (21.0-32.0); CHLORIDE - SERUM 100 mmol/L (98-107); CREATININE - SERUM 1.5 mg/dL (0.6-1.3); GLUCOSE 129 mg/dL (74-106); POTASSIUM - SERUM 3.8 mmol/L (3.5-5.1); PROTEIN - SERUM 7.2 g/dL (6.4-8.2); SODIUM 138 mmol/L (136-145); UREA NITROGEN 17 mg/dL (7-18); eGFR NON AFRICAN AMERICAN 61 mL/min (90-120)
[2018-04-24 11:54] LABS: C-REACTIVE PROTEIN < 0.2 mg/dL (0.0-0.9)
[2018-04-24] MEDS ORDERED: GOLYTELY SOLU4000 ML PO (12:33)
[2018-04-24 12:42] LABS: APPEARANCE CLEAR (CLEAR); BILIRUBIN NEGATIVE (NEGATIVE); COLOR YELLOW (YELLOW); GLUCOSE NEGATIVE (NEGATIVE); KETONE NEGATIVE (NEGATIVE); NITRITE NEGATIVE (NEGATIVE); PROTEIN NEGATIVE (NEGATIVE)
[2018-04-24 14:04] VITALS: BP 153/85
== END 2018-04-24 14:05 | disposition home or self-care (01) ==
LOC: D.ER 11:06
PROVIDERS: Family Medicine
DX: K56.41 Fecal impaction (principal)

== ENCOUNTER 2018-05-05 13:49 | Inpatient (IN) | payer BC ==
[~2018-05-05] VITALS: Ht 175.3 cm; Wt 81.2 kg
[~2018-05-05 13:49] MED LIST changes: +GOLYTELY SOLU4000 ML PO
[2018-05-05 15:22] LABS: BASOPHILS 0.3 % (0-2); EOSINOPHILS 1.4 % (0-7); HEMATOCRIT 35.4 % (42.0-54.0); IMMATURE GRANULOCYTES 0.3 % (0-5); LYMPHOCYTES 29.7 % (15-50); MCH 30.5 pg (26.0-34.0); MCHC 33.9 g/dL (31.0-37.0); MCV 90.1 fL (80.0-100.0); MEAN PLATELET VOLUME 10.8 fL (7.4-10.4); MONOCYTES 7.6 % (2-11); NEUTROPHILS 60.7 % (40-80); PLATELET COUNT 204 10x3/uL (130-400); RBC 3.93 10x6/uL (4.20-6.10); WBC 7.2 10x3/uL (4.8-10.8)
[2018-05-05 15:38] LABS: ALBUMIN 3.4 g/dL (3.4-5.0); ALKALINE PHOSPHATASE 106 U/L (46-116); ALT (SGPT) 56 U/L (10-68); BILIRUBIN - TOTAL 0.59 mg/dL (0.2-1.3); CALC OSMOLALITY 279 mosm/kg (275-300); CALCIUM 8.8 mg/dL (8.5-10.1); CARBON DIOXIDE 25.5 mmol/L (21.0-32.0); CHLORIDE - SERUM 105 mmol/L (98-107); CREATININE - SERUM 1.2 mg/dL (0.6-1.3); GLUCOSE 101 mg/dL (74-106); POTASSIUM - SERUM 3.9 mmol/L (3.5-5.1); PROTEIN - SERUM 6.6 g/dL (6.4-8.2); SODIUM 140 mmol/L (136-145); UREA NITROGEN 16 mg/dL (7-18); eGFR NON AFRICAN AMERICAN 78 mL/min (90-120)
[2018-05-05 15:45] LABS: INR 1.14 (0.85-1.17)
[2018-05-05 16:24] VITALS: BP 122/72
[2018-05-05 18:25] VITALS: BP 122/78
--- NOTE | 2018-05-05 18:55 | NUR ---
PATIENT RESTING IN BED WITH GUESTS AT BEDSIDE AND DENIES NEEDS AT THIS TIME. HOOKED PATIENT'S NGT TO LIS. BED IN LOWEST POSITION AND CALL LIGHT WITHIN REACH. ENCOURAGED THE PATIENT TO CALL IF HE HAS NEEDS. WILL CONTINUE TO MONITOR.
--- NOTE | 2018-05-05 22:32 | NUR ---
SPOKE WITH REVENUE FIELD AUDITOR IN REGARDS TO PATIENT'S REQUEST FOR PHENERGAN. PATIENT STATED ZOFRAN IS NOT HELPING HIS NAUSEA.
[2018-05-05 22:53] VITALS: BP 128/58
[2018-05-05 23:53] VITALS: BP 106/62
[2018-05-06 04:00] VITALS: BP 116/54
[2018-05-06 05:51] LABS: BASOPHILS 0.3 % (0-2); EOSINOPHILS 0.8 % (0-7); HEMATOCRIT 36.4 % (42.0-54.0); HEMOGLOBIN 12.2 g/dL (13.5-17.5); IMMATURE GRANULOCYTES 0.3 % (0-5); LYMPHOCYTES 21.4 % (15-50); MCH 30.5 pg (26.0-34.0); MCHC 33.5 g/dL (31.0-37.0); MEAN PLATELET VOLUME 10.5 fL (7.4-10.4); MONOCYTES 9.7 % (2-11); NEUTROPHILS 67.5 % (40-80); PLATELET COUNT 195 10x3/uL (130-400); RDW 13.2 % (11.5-14.5); WBC 7.9 10x3/uL (4.8-10.8)
[2018-05-06 06:13] LABS: ANION GAP 11.2 mmol/L (8-16); BILIRUBIN - TOTAL 0.75 mg/dL (0.2-1.3); CALCIUM 7.9 mg/dL (8.5-10.1); CARBON DIOXIDE 27.1 mmol/L (21.0-32.0); CREATININE - SERUM 1.3 mg/dL (0.6-1.3); POTASSIUM - SERUM 4.3 mmol/L (3.5-5.1); PROTEIN - SERUM 5.9 g/dL (6.4-8.2)
--- NOTE | 2018-05-06 07:25 | NUR ---
PT RESTING IN BED, EYES CLOSED. RESPIRATIONS EVEN AND UNLABORED. NO C/O PAIN. NO S/S OF ACUTE DISTRESS NOTED. PT ALERT AND ORIENTED. UP AD WILY. IV TO RIGHT FOREARM, SITE PATENT WITHOUT REDNESS OR SWELLING, NS INFUSING @ 200ML/HR. NG TUBE TO RIGHT NARE, ON LIS. PT C/O THROAT IRRITATION, PHYSICIAN PRESCRIBED CHLORSEPTIC SPRAY. PT C/O ZOFRAN NOT HELPING WITH THE NAUSEA, PHYSICIAN PRESCRIBED PHENERGAN INSTEAD. PT DENIES ANYTHING FURTHER AT THIS TIME. CALL LIGHT IN REACH. WILL CONTINUE TO MONITOR.
--- NOTE | 2018-05-06 09:20 | NUR ---
CALLED IN[facility]UR[facility] ABOUT HIS CONSULT. NEW MEDICATION ORDERS IN PLACE. WILL DISCUSS WITH PRIMARY NURSE FOR THIS PT AND CTM.
[2018-05-06 10:25] VITALS: BP 128/58
--- NOTE | 2018-05-06 10:45 | NUR ---
ADMINISTERED 200CC OF GOLYTELY PREP ORDERED VIA NGT PT TOLERATED WITHOUT ANY COMPLAINTS OF CRAMPS OR ISSUES NOTED. PT WANTING TO GET IN SHOWER AND IS CLAMPED OFF AND PIV COVERED. FAMILY AT BEDSIDE. NO CURRENT NEEDS. WILL CTM.
[2018-05-06 12:00] VITALS: BP 116/75
--- NOTE | 2018-05-06 12:56 | NUR ---
300CC OF GOLYTELY GIVEN ORDERED. PT TOLERATED WITHOUT ANY C/O PAIN OR NAUSEA.
--- NOTE | 2018-05-06 19:12 | NUR ---
PT RESTING IN BED, EYES OPEN. FAMILY AT BEDSIDE. NO C/O PAIN. NO S/S OF ACUTE DISTRESS NOTED. PT DENIES ANYTHING FURTHER AT THIS TIME. CALL LIGHT IN REACH. WILL CONTINUE TO MONITOR.
--- NOTE | 2018-05-06 19:28 | NUR ---
PATIENT RESTING IN BED AND DENIES NEEDS AT THIS TIME. GUEST AND PIZZA CHEF AT BEDSIDE. HUNG A NEW BAG OF IV FLUIDS. BED IN LOWEST POSITION AND CALL LIGHT WITHIN REACH. ENCOURAGED THE PATIENT TO CALL IF HE HAS NEEDS. WILL CONTINUE TO MONITOR.
[2018-05-06 19:55] VITALS: BP 128/72
[2018-05-06 23:41] VITALS: BP 138/82
--- NOTE | 2018-05-07 00:35 | NUR ---
PULLED PATIENT'S NGT
[2018-05-07 03:46] VITALS: BP 110/60
[2018-05-07 06:32] LABS: ALBUMIN 2.6 g/dL (3.4-5.0); ALKALINE PHOSPHATASE 91 U/L (46-116); ALT (SGPT) 62 U/L (10-68); BILIRUBIN - TOTAL 0.89 mg/dL (0.2-1.3); CALCIUM 7.4 mg/dL (8.5-10.1); CARBON DIOXIDE 25.3 mmol/L (21.0-32.0); CHLORIDE - SERUM 109 mmol/L (98-107); CREATININE - SERUM 1.2 mg/dL (0.6-1.3); GLUCOSE 81 mg/dL (74-106); PROTEIN - SERUM 5.4 g/dL (6.4-8.2); SODIUM 146 mmol/L (136-145); eGFR NON AFRICAN AMERICAN 78 mL/min (90-120)
[2018-05-07 06:35] LABS: CALC OSMOLALITY 287 mosm/kg (275-300); POTASSIUM - SERUM 3.5 mmol/L (3.5-5.1); UREA NITROGEN 8 mg/dL (7-18)
--- NOTE | 2018-05-07 07:47 | NUR ---
AM ROUNDS- PT RESTING COMFORTABLY IN BED, A/O X4, RESP EVEN AND NONLABORED ON RA. RT FA IV INFUSING NS AT 200CC/HR. PT DENIES ANY PAIN AT THIS TIME. CALL LIGHT IN REACH, NAD NOTED, WILL CONTINUE PLAN OF CARE.
[2018-05-07 07:56] VITALS: BP 121/56
--- NOTE | 2018-05-07 10:28 | NUR ---
GAVE 0.5MG OF DILAUDID FOR PAIN LEVEL OF 7/10. PT DENIES ANY OTHER NEEDS AT THIS TIME. CALL LIGHT IN REACH, FAMILY AT BEDSIDE,NAD NOTED, WILL CONTINUE TO MONITOR.
--- NOTE | 2018-05-07 10:29 | MORECARE ---
CASE MANAGEMENT DISCHARGE SUMMARY PATIENT: DANITZA MELENDREZ IV UNIT: [id number] ADM DATE: 05/05/18 AGE: 27 : [birth year] SEX: M ROOM/BED: D.1205 AUTHOR: ADRIANE QUAN PHYSICIAN: REFERRING PHYSICIAN: KEMAL RAY MD DATE OF SERVICE: 05/07/18 Discharge Plan Patient Name: DANITZA MELENDREZ Facility: [facility]:[place] : 1990 Planned Disposition: Home Anticipated Discharge Date: Discharge Date: Expected LOS: Initial Reviewer: [email or web address] Initial Review Date: 05/07/2018 Generated: 05/07/18 11:28 am Comments DCP- Discharge Planning Updated by [email or web address]: Kitty Still on 05/07/18 9:[address] Patient Name: DANITZA MELENDREZ Admission Status: ER Accout number: [id number] Admission Date: 05-05-2018 : 1990 Admission Diagnosis: Attending: KEMAL RAY Current LOS: 2 Anticipated DC Date: Planned Disposition: Home Primary Insurance: [place] [employer] [facility] Discharge Planning Comments: CM MET WITH PATIENT AND HIS MOTHER ABOUT DC PLANNING/NEEDS. PLANS TO DC TO HOME. DENIES NEEDS AT THIS TIME. CM WILL FOLLOW AND ASSIST NEEDED WITH DC PLANNING/NEEDS. Quill Cleaning Machine Operator: Kitty Still DCPIA - Discharge Planning Initial Assessment Updated by [email or web address]: Kitty Still on 05/07/18 10:27 am * Is the patient Alert and Oriented? Yes * PCP JENNIFFER * Pharmacy [facility] * Preadmission Environment Home with Family * ADLs Independent * List name and contact numbers for known caregivers / representatives who currently or will assist patient after discharge: ELIZABETH, EVELIA, * Additional services required to return to the preadmission environment? No * Can the patient safely return to the preadmission environment? Yes * Has this patient been hospitalized within the prior 30 days at any hospital? No Patient Name: DANITZA MELENDREZ Page 93272 at 1029 All edits/amendments must be made on the electronic document DICTATION DATE: 05/07/18 1028 PRODUCTION MAINTENANCE TECHNICIAN: DELORES 05/07/18 1028 RPT#: [id number] DC DATE: STATUS: ADM IN [facility] [address] [place] [address] END OF REPORT
[2018-05-07 11:11] LABS: % SATURATION 12 % (15-55); IRON 29 ug/dl (35-150); TOTAL IRON BIND CAPACITY 240 ug/dl (260-445); UNSAT IRON BIND CAPACITY 211 ug/dl (150-375)
[2018-05-07 12:30] VITALS: Ht 175.3 cm; Wt 81.2 kg
[2018-05-07 12:52] VITALS: BP 128/63
[2018-05-07 15:44] VITALS: BP 128/64
--- NOTE | 2018-05-07 18:19 | NUR ---
CALLED PHARMACY AND SPOKE WITH KAMI, INFORMED HIM THAT I NEED IRON FOR PT.
--- NOTE | 2018-05-07 19:43 | NUR ---
PATIENT RESTING IN BED AND DENIES NEEDS AT THIS TIME. BED IN LOWEST POSITION AND CALL LIGHT WITHIN REACH. ENCOURAGED THE PATIENT TO CALL IF HE HAS NEEDS. WILL CONTINUE TO MONITOR.
[2018-05-07 21:00] VITALS: BP 117/73
[2018-05-08] VITALS (7 sets, daily range): BP systolic 117–148; BP diastolic 68–86
[2018-05-08 06:31] LABS: BASOPHILS 0.4 % (0-2); EOSINOPHILS 3.5 % (0-7); HEMATOCRIT 35.2 % (42.0-54.0); IMMATURE GRANULOCYTES 0.2 % (0-5); LYMPHOCYTES 42.3 % (15-50); MCH 30.7 pg (26.0-34.0); MCHC 34.1 g/dL (31.0-37.0); MEAN PLATELET VOLUME 10.8 fL (7.4-10.4); NEUTROPHILS 39.6 % (40-80); PLATELET COUNT 208 10x3/uL (130-400); RBC 3.91 10x6/uL (4.20-6.10); RDW 12.8 % (11.5-14.5)
[2018-05-08 06:36] LABS: ALBUMIN 2.6 g/dL (3.4-5.0); ANION GAP 11.4 mmol/L (8-16); BILIRUBIN - TOTAL 0.64 mg/dL (0.2-1.3); CALCIUM 8.2 mg/dL (8.5-10.1); CARBON DIOXIDE 27.4 mmol/L (21.0-32.0); CREATININE - SERUM 1.3 mg/dL (0.6-1.3); POTASSIUM - SERUM 3.8 mmol/L (3.5-5.1); PROTEIN - SERUM 5.6 g/dL (6.4-8.2)
[2018-05-08 06:46] LABS: WBC 4.6 10x3/uL (4.8-10.8)
[2018-05-08 09:18] LABS: FOLATE (FOLIC ACID) - SERUM 14.7 ng/mL (>3.0)
--- NOTE | 2018-05-08 10:36 | NUR ---
GAVE 0.5MG OF DILAUDID FOR PAIN LEVEL OF 8/10. PT JUST GOT OUT OF THE SHOWER, DNEIES ANY NEEDS AT THIS TIME. CALL LIGHT IN REACH, FAMILY AT BEDSIDE,NAD NOTED, WILL CONTINUE TO MONITOR.
--- NOTE | 2018-05-08 15:00 | NUR ---
PAGED DR. SANCHEZ AND [place], WAITING PUBLIC MESSAGE SERVICE SUPERVISOR BACK.
--- NOTE | 2018-05-08 18:25 | NUR ---
PATIENT RESTING IN BED AND REQUESTED PAIN MEDS IF TIME. NOTIFIED NURSE. PATIENT DENIES OTHER NEEDS AT THIS TIME. BED IN LOWEST POSITION AND CALL LIGHT WITHIN REACH. ENCOURAGED THE PATIENT TO CALL IF HE HAS OTHER NEEDS. BED IN LOWEST POSITION AND CALL LIGHT WITHIN REACH. WILL CONTINUE TO MONITOR.
[2018-05-09] VITALS: BP 130/81
[2018-05-09 04:42] VITALS: BP 142/89
[2018-05-09 06:43] LABS: BASOPHILS 0.1 % (0-2); EOSINOPHILS 0.6 % (0-7); HEMATOCRIT 38.3 % (42.0-54.0); HEMOGLOBIN 12.9 g/dL (13.5-17.5); IMMATURE GRANULOCYTES 0.1 % (0-5); LYMPHOCYTES 8.8 % (15-50); MCH 30.4 pg (26.0-34.0); MCHC 33.7 g/dL (31.0-37.0); MCV 90.1 fL (80.0-100.0); MEAN PLATELET VOLUME 10.7 fL (7.4-10.4); MONOCYTES 7.5 % (2-11); NEUTROPHILS 82.9 % (40-80); PLATELET COUNT 241 10x3/uL (130-400); RBC 4.25 10x6/uL (4.20-6.10); RDW 12.6 % (11.5-14.5)
[2018-05-09 07:12] LABS: ANION GAP 12.5 mmol/L (8-16); BILIRUBIN - TOTAL 0.53 mg/dL (0.2-1.3); CALCIUM 8.9 mg/dL (8.5-10.1); CARBON DIOXIDE 28.4 mmol/L (21.0-32.0); CREATININE - SERUM 1.3 mg/dL (0.6-1.3); POTASSIUM - SERUM 3.9 mmol/L (3.5-5.1)
[2018-05-09 07:14] LABS: ALBUMIN 3.4 g/dL (3.4-5.0)
[2018-05-09 07:24] LABS: WBC 7.8 10x3/uL (4.8-10.8)
--- NOTE | 2018-05-09 07:49 | NUR ---
GAVE 0.5MG OF DILAUDID FOR PAIN LEVEL OF 8/10, ALSO GAVE 12.5MG OF PHENERGAN TO RT DELTOID FOR NAUSEA. PT DENIES ANY OTHER NEEDS AT THIS TIME, CALL LIGHT IN REACH,NAD NOTED,WILL CONTINUE TO MONITOR.
[2018-05-09 08:51] VITALS: BP 140/77
--- NOTE | 2018-05-09 10:35 | NUR ---
Nutrition Follow Up: Chart reviewed Diet: Clear Liquid BM: 05/09/18 Labs reviewed Meds noted including Colace, Miralax Rec continue advancing diet as tolerated. NPO/clears not rec > 5 days. Will honor food preferences within diet order. RD following.
--- NOTE | 2018-05-09 13:52 | NUR ---
RECEIVED CALL FROM DR. SANCHEZ'S OFFICE AND WAS INFORMED THAT FROM DR. SANCHEZ'S AND [place]'S STANDPOINT PT COULD BE D/C HOME TODAY. CALLED DR. DUMONT AND NOTIFIED HIM OF THIS. DR. JUSTICE STATED THAT DR. GAR WOULD HAVE TO COME BY AND ASSESS PT TO MAKE SURE HE IS STABLE TO GO HOME TODAY. NOTIDIED PT AND HE STATED THAT HE DOES NOT WANT DR. DUMONT TO BACK IN HIS ROOM.
[2018-05-09 15:20] VITALS: BP 164/68
--- NOTE | 2018-05-09 16:11 | NUR ---
PROVIDED VERBAL AND WRITTEN DISCHARGE TEACHING TO PT, WHO VERBALIZED UNDERSTANDING REGARDING TEACHING. D/C RT FA IV WITH TIP INTACT. PT WAITING ON RIDE, WILL NOTIFY THIS NURSE WHEN READY FOR WHEELCHAIR.
--- NOTE | 2018-05-09 17:01 | NUR ---
PT LEFT UNIT VIA AMBULATORY, ACCOMPANIED BY SISTER, WITH ALL BELONGINGS. NAD NOTED.
--- NOTE | 2018-05-10 09:57 | MORECARE ---
CASE MANAGEMENT DISCHARGE SUMMARY PATIENT: DANITZA MELENDREZ IV UNIT: [id number] ADM DATE: 05/05/18 AGE: 27 : [birth year] SEX: M ROOM/BED: D.1205 AUTHOR: ADRIANE QUAN PHYSICIAN: REFERRING PHYSICIAN: KEMAL RAY MD DATE OF SERVICE: 05/10/18 Discharge Plan Patient Name: DANITZA MELENDREZ Facility: [facility]:[place] : 1990 Planned Disposition: Home Anticipated Discharge Date: Discharge Date: 05/09/2018 Expected LOS: Initial Reviewer: [email or web address] Initial Review Date: 05/07/2018 Generated: 05/10/18 10:57 am DCP- Discharge Planning Updated by [email or web address]: Kitty Still on 05/07/18 9:[address] Patient Name: DANITZA MELENDREZ Admission Status: ER Accout number: [id number] Admission Date: 05-05-2018 : 1990 Admission Diagnosis: Attending: KEMAL RAY Current LOS: 2 Anticipated DC Date: Planned Disposition: Home Primary Insurance: [employer] [facility] Discharge Planning Comments: CM MET WITH PATIENT AND HIS MOTHER ABOUT DC PLANNING/NEEDS. PLANS TO DC TO HOME. DENIES NEEDS AT THIS TIME. CM WILL FOLLOW AND ASSIST NEEDED WITH DC PLANNING/NEEDS. Senior Living Sales Counselor: iKtty Still DCPIA - Discharge Planning Initial Assessment Updated by [email or web address]: Kitty Still on 05/07/18 10:27 am * Is the patient Alert and Oriented? Yes * PCP JENNIFFER * Pharmacy [facility] [address] * Preadmission Environment Home with Family * ADLs Independent * List name and contact numbers for known caregivers / representatives who currently or will assist patient after discharge: EVELIA JOHNSON, * Additional services required to return to the preadmission environment? No * Can the patient safely return to the preadmission environment? Yes * Has this patient been hospitalized within the prior 30 days at any hospital? No Last DP export: 05/07/18 9:28 a Patient Name: DANITZA MELENDREZ Page [id number] at 0957 All edits/amendments must be made on the electronic document DICTATION DATE: 05/10/1856 BENDER MACHINE: DELORES 05/10/1856 RPT#: [id number] DC DATE:05/09/18 STATUS: DIS IN [facility] [address] [place] [address] END OF REPORT
== END 2018-05-09 17:03 | disposition home or self-care (01) | DRG 389 ==
LOC: D.ER 13:49 → D.M3 17:32 → D.EDHOLD 17:32 → D.M3 17:38
PROVIDERS: Family Medicine; Internal Medicine Nephrology; ADMIT Family Medicine
PROC: 0D9670Z Drainage of Stomach with Drainage Device, Via Natural or Artificial Opening (ICD-10-PCS; principal; 2018-05-05)
DX: K56.609 Unspecified intestinal obstruction, unspecified as to partial versus complete obstruction (principal); E87.0 Hyperosmolality and hypernatremia; D50.9 Iron deficiency anemia, unspecified

== ENCOUNTER 2018-05-11 16:12 | Inpatient (IN) | payer BC ==
[~2018-05-11] VITALS: Ht 175.3 cm; Wt 80.7 kg
[2018-05-11 18:13] LABS: BASOPHILS 0.4 % (0-2); HEMATOCRIT 33.9 % (42.0-54.0); HEMOGLOBIN 11.8 g/dL (13.5-17.5); IMMATURE GRANULOCYTES 0.4 % (0-5); MCH 30.5 pg (26.0-34.0); MCHC 34.8 g/dL (31.0-37.0); MCV 87.6 fL (80.0-100.0); MEAN PLATELET VOLUME 10.1 fL (7.4-10.4); MONOCYTES 10.3 % (2-11); NEUTROPHILS 43.9 % (40-80); PLATELET COUNT 260 10x3/uL (130-400); RBC 3.87 10x6/uL (4.20-6.10); RDW 12.5 % (11.5-14.5); WBC 5.6 10x3/uL (4.8-10.8)
[2018-05-11 18:39] LABS: APTT 31.4 SECONDS (22.8-39.4); INR 1.11 (0.85-1.17); PROTIME 13.8 SECONDS (11.6-15.0)
[2018-05-11 18:49] LABS: ALBUMIN 3.4 g/dL (3.4-5.0); ANION GAP 12.2 mmol/L (8-16); BILIRUBIN - TOTAL 0.39 mg/dL (0.2-1.3); CALCIUM 8.7 mg/dL (8.5-10.1); CARBON DIOXIDE 29.5 mmol/L (21.0-32.0); CREATININE - SERUM 1.3 mg/dL (0.6-1.3); POTASSIUM - SERUM 3.7 mmol/L (3.5-5.1); PROTEIN - SERUM 6.5 g/dL (6.4-8.2)
--- NOTE | 2018-05-11 19:05 | NUR ---
HAND OFF REPORT GIVEN TO ELOISE BARON.
--- NOTE | 2018-05-11 22:15 | NUR ---
ORDERS NOT TO PLACE NG TUBE PER EDP ELKIN GIRALDO.
[2018-05-11] MEDS ORDERED: PHENERGAN25 M1 PO (23:49)
[2018-05-11] MEDS ORDERED: SINGULAIR10 MG PO (23:50)
[2018-05-12] VITALS (7 sets, daily range): BP systolic 108–131; BP diastolic 56–88; Ht 175.3 cm; Wt 80.7 kg
--- NOTE | 2018-05-12 00:02 | NUR ---
PT ARRIVED TO FLOOR. AAO, UP AD WILY. MED REC,PHARMACY AND HISTORY COMPLETE. PT HAS A LEFT FOREARM IV 18G NS INFUSING 125, ZOFRAN GIVEN FOR NAUSEA. NO EMESIS AT THIS TIME. PT S1S2 RRR, LUNGS CLEAR ABDOMEN TIGHT,DISTENDED AND TENDER. PT DENIES ANY NEEDS AT THIS TIME. NO S/S OF DISTRESS. BEDLOW AND CALL LIGHT IN REACH. WILL CPOC
--- NOTE | 2018-05-12 04:52 | NUR ---
PT ASLEEP. RESP EVEN AND UNLABORED. NO S/S OF DISTRESS. BEDLOW AND CALL LIGHT IN REACH. NS INFUSING 125 TO LEFT FOREARM. MOTHER AT BEDSIDE. WILL CPOC
--- NOTE | 2018-05-12 05:24 | NUR ---
PT AROUSES TO NURSE. PT DENIES ANY NEEDS. NEW NS CONTINUED AT 125 TO LEFT FOREARM. PT HAS NO S/S OF DISTRESS. BEDLOW AND CALL LIGHT IN REACH. WILL CPOC
--- NOTE | 2018-05-12 08:10 | NUR ---
PT RESTING EYES CLOSED, NO SIGNS OF DISTRESS NOTED, CL IN REACH
--- NOTE | 2018-05-12 11:23 | NUR ---
RESTING QUIETLY IN BED. DENIES ANY NEEDS AT THIS TIME.
--- NOTE | 2018-05-13 00:20 | NUR ---
SWELLING AND REDNESS NOTED AT PATIENT'S IV SITE. REMOVED IV WITH TIP INTACT. RESITED THE PATIENT'S IV IN THE R FA WITH A 22G ON THE FIRST ATTEMPT.
[2018-05-13 05:30] VITALS: BP 131/52
[2018-05-13 07:35] VITALS: BP 121/68
--- NOTE | 2018-05-13 07:54 | NUR ---
PT AAOX4 RESP EVEN AND NONLABORED, NO SIGNS OF DISTRESS NOTED, VOMITING AT THIS TIME, ZOFRAN WAS GIVEN AT 0550, PT STATES "IT IS NOT WOORKING" I EXPRESSED TO PT I WOULD CALL THE DR AND TRY TO GET SOMETHING DIFFERENT ORDERED, CL IN REACH FAMILY AT BEDSIDE
[2018-05-13 11:21] VITALS: BP 114/64
--- NOTE | 2018-05-13 11:53 | NUR ---
REVIEWED PATIENT CHART FOR SCD'S.
--- NOTE | 2018-05-13 13:34 | NUR ---
RESTING QUIETLY IN BED. DENIES NEEDS. NO BM REPORTED OF YET.
[2018-05-13 15:41] VITALS: BP 122/73
--- NOTE | 2018-05-13 16:26 | NUR ---
PT AAOX4 RESP EVEN AND NONLABORED, NO SIGNS OF DISTRESS NOTED, REPORTS "NO MORE VOMITING AT THIS TIME PHERGRAN REALLY HELPED" CL IN REACH
--- NOTE | 2018-05-13 19:53 | NUR ---
PATIENT RESTING IN BED AND DENIES NEEDS AT THIS TIME. ADMINISTERED MEDS PER ORDERS. PATIENT DENIES OTHER NEEDS AT THIS TIME. BED IN LOWEST POSITION AND CALL LIGHT WITHIN REACH. WILL CONTINUE TO MONITOR.
[2018-05-13 20:00] VITALS: BP 134/82
[2018-05-14] VITALS: BP 124/70
[2018-05-14 04:00] VITALS: BP 124/71
--- NOTE | 2018-05-14 08:00 | NUR ---
REPORT RECEIVED AND CARE ASSUMED. DENIES ANY NEEDS. FAMILY AT BEDSIDE. MEDICATION COMPLIANT. WILL CONTINUE TO MONITOR.
[2018-05-14 09:03] VITALS: BP 128/70
[2018-05-14 18:41] VITALS: BP 131/80
[2018-05-14 20:00] VITALS: BP 131/81
--- NOTE | 2018-05-14 20:22 | NUR ---
PATIENT RESTING IN BED WITH FAMILY AT BEDSIDE AND DENIES NEEDS AT THIS TIME. BED IN LOWEST POSITION AND CALL LIGHT WITHIN REACH. ENCOURAGED THE PATIENT TO CALL IF HE HAS NEEDS. WILL CONTINUE TO MONITOR.
[2018-05-15] VITALS: BP 134/67
[2018-05-15 04:00] VITALS: BP 124/86
--- NOTE | 2018-05-15 07:29 | NUR ---
PT IN BED, A/O X4, RESP EVEN AND NONLABORED ON RA. LT FA INFUSING NS AT 50CC/HR. ABD DISTENDED AND FIRM WITH ACTIVE BOWEL SOUNDS. PT DENIES ANY NEEDS AT THIS TIME. CALL LIGHT IN REACH,NAD NOTED, WILL CONTINUE PLAN OF CARE.
[2018-05-15 07:55] VITALS: BP 130/79
[2018-05-15 08:10] LABS: ALBUMIN 3.1 g/dL (3.4-5.0); ANION GAP 12.3 mmol/L (8-16); BASOPHILS 0.5 % (0-2); BILIRUBIN - TOTAL 0.28 mg/dL (0.2-1.3); CALCIUM 8.6 mg/dL (8.5-10.1); CARBON DIOXIDE 27.6 mmol/L (21.0-32.0); CREATININE - SERUM 1.3 mg/dL (0.6-1.3); EOSINOPHILS 2.4 % (0-7); HEMATOCRIT 34.8 % (42.0-54.0); HEMOGLOBIN 11.6 g/dL (13.5-17.5); IMMATURE GRANULOCYTES 0.3 % (0-5); LYMPHOCYTES 47.1 % (15-50); MCH 30.2 pg (26.0-34.0); MCHC 33.3 g/dL (31.0-37.0); MCV 90.6 fL (80.0-100.0); MEAN PLATELET VOLUME 10.9 fL (7.4-10.4); MONOCYTES 13.4 % (2-11); NEUTROPHILS 36.3 % (40-80); PLATELET COUNT 284 10x3/uL (130-400); POTASSIUM - SERUM 3.9 mmol/L (3.5-5.1); PROTEIN - SERUM 6.3 g/dL (6.4-8.2); RBC 3.84 10x6/uL (4.20-6.10); RDW 12.9 % (11.5-14.5); WBC 3.8 10x3/uL (4.8-10.8)
--- NOTE | 2018-05-15 09:30 | NUR ---
Pt is eating solid food now and eating well. Pt ate 75% of breakfast this morning. Pt reports some mild nausea. Pt reports he is able to eat and keep food down. Pt reports he is getting plenty to eat. Pt reports no nutrition related questions or concerns. REC: May want to consider an appointment with the outpatient dietitian after discharge RD following
[2018-05-15 12:17] VITALS: BP 116/71
[2018-05-15 16:02] VITALS: BP 136/72
[2018-05-15 20:00] VITALS: BP 100/59
--- NOTE | 2018-05-15 21:58 | NUR ---
PATIENT RESTING IN BED WITH NO S/S OF DISTRESS. ADMINISTERED MEDS PER ORDERS. PATIENT DENIES NEEDS AT THIS TIME. BED IN LOWEST POSITION AND CALL LIGHT WITHIN REACH. ENCOURAGED THE PATIENT TO CALL IF HE HAS NEEDS. WILL CONTINUE TO MONITOR.
[2018-05-16] VITALS: BP 109/68
[2018-05-16 04:00] VITALS: BP 107/66
[2018-05-16 07:23] LABS: BASOPHILS 0.5 % (0-2); EOSINOPHILS 1.8 % (0-7); HEMATOCRIT 35.8 % (42.0-54.0); IMMATURE GRANULOCYTES 0.3 % (0-5); LYMPHOCYTES 40.6 % (15-50); MCH 30.3 pg (26.0-34.0); MCHC 33.5 g/dL (31.0-37.0); MCV 90.4 fL (80.0-100.0); MEAN PLATELET VOLUME 10.4 fL (7.4-10.4); MONOCYTES 12.3 % (2-11); NEUTROPHILS 44.5 % (40-80); PLATELET COUNT 294 10x3/uL (130-400); RBC 3.96 10x6/uL (4.20-6.10); RDW 13.1 % (11.5-14.5)
[2018-05-16 07:34] VITALS: BP 102/52
[2018-05-16 07:46] LABS: ALBUMIN 3.2 g/dL (3.4-5.0); ANION GAP 10.7 mmol/L (8-16); BILIRUBIN - TOTAL 0.42 mg/dL (0.2-1.3); CALCIUM 8.8 mg/dL (8.5-10.1); CARBON DIOXIDE 28.5 mmol/L (21.0-32.0); CREATININE - SERUM 1.3 mg/dL (0.6-1.3); POTASSIUM - SERUM 4.2 mmol/L (3.5-5.1); PROTEIN - SERUM 6.5 g/dL (6.4-8.2)
--- NOTE | 2018-05-16 09:28 | NUR ---
AM MEDS GIVEN AT THIS TIME. ALSO GAVE 1MG OF DILAUDID FOR PAIN LEVEL OF 7/10. PT JUST GOT OUT OF THE SHOWER, COMPLETE LINEN CHANGE AT THIS TIME. PT DENIES ANY OTHER NEEDS AT THIS TIME. CALL LIGHT IN REACH,NAD NOTED, WILL CONITNUE TO MONITOR.
[2018-05-16 12:23] VITALS: BP 123/60
--- NOTE | 2018-05-16 14:58 | NUR ---
PT IN BED, WATCHING TV, DENIES ANY NEEDS AT THIS TIME. CALL LIGHT IN REACH,NAD NOTED, WILL CONTINUE TO MONITOR.
[2018-05-16 16:03] VITALS: BP 105/65
--- NOTE | 2018-05-16 17:51 | NUR ---
GAVE 1MG OF DILAUDID FOR PAIN LEVEL OF 8/10. ALSO GAVE 4MG OF ZOFRAN PER NAUSEA. PT DENIES ANY OTHER NEEDS AT THIS TIME, CALL LIGHT IN REACH.
[2018-05-16 20:00] VITALS: BP 116/73; BP 135/84
--- NOTE | 2018-05-16 21:00 | NUR ---
PT RESTING IN BED COMFORTABLY. FAMILY AT BEDSIDE. ABDOMEN FIRM AND DISTENDED. PT STATES THAT HE HAD A VERY SMALL FORMED BOWEL MOVEMENT. BED LOW CALL LIGHT WITHIN REACH. WILL CONTINUE TO MONITOR.
[2018-05-17] VITALS: BP 122/65
--- NOTE | 2018-05-17 01:46 | NUR ---
PT RESTING IN BED. RR-EVEN AND UNLABORED. NO S/S OF DISTRESS. BED LOW CALL LIGHT WITHIN REACH. WILL CONTINUE TO MONITOR.
[2018-05-17 04:00] VITALS: BP 106/67
--- NOTE | 2018-05-17 04:04 | NUR ---
PT RESTING IN BED WITH EYES CLOSED. RR- EVEN AND UNLABORED. NO S/S OD DISTRESS. BED LOW CALL LIGHT WITHIN REACH. WILL CONTINUE TO MONITOR.
[2018-05-17 07:22] LABS: BASOPHILS 0.3 % (0-2); EOSINOPHILS 2.3 % (0-7); HEMATOCRIT 34.6 % (42.0-54.0); HEMOGLOBIN 11.5 g/dL (13.5-17.5); IMMATURE GRANULOCYTES 0.3 % (0-5); LYMPHOCYTES 44.5 % (15-50); MCH 30.3 pg (26.0-34.0); MCHC 33.2 g/dL (31.0-37.0); MCV 91.1 fL (80.0-100.0); MEAN PLATELET VOLUME 10.4 fL (7.4-10.4); MONOCYTES 12.5 % (2-11); NEUTROPHILS 40.1 % (40-80); PLATELET COUNT 275 10x3/uL (130-400); WBC 3.9 10x3/uL (4.8-10.8)
[2018-05-17 07:23] LABS: ANION GAP 13.2 mmol/L (8-16); BILIRUBIN - TOTAL 0.56 mg/dL (0.2-1.3); CALCIUM 8.4 mg/dL (8.5-10.1); CARBON DIOXIDE 27.7 mmol/L (21.0-32.0); CREATININE - SERUM 1.4 mg/dL (0.6-1.3); POTASSIUM - SERUM 3.9 mmol/L (3.5-5.1); PROTEIN - SERUM 6.3 g/dL (6.4-8.2)
--- NOTE | 2018-05-17 07:42 | NUR ---
ROUNDING DONE WITH PATIENT LAYING FLAT IN BED, DENIES NEEDS AT THIS TIME. ON ROOM AIR. LEFT FA PIV SEEN WITH NS INFUSING AT 50 CC/HR.
[2018-05-17 07:53] VITALS: BP 116/66
[2018-05-17 11:32] VITALS: BP 124/82
[2018-05-17 16:04] VITALS: BP 133/78
--- NOTE | 2018-05-17 19:45 | NUR ---
BEDSIDE ROUNDING COMPLETE. PT ALERT AND ORIENTED. LFA IV RUNNING NS@100. PT ABDOMEN FIRM AND DISTENDED. PT DRINKING GATORADE AND MIRALAX AT THIS TIME. VITALS STABLE. PT DENIES PAIN OR NEEDS AT THIS TIME. BED LOW CALL LIGHT WITHIN REACH. WILL CONTINUE TO MONITOR.
[2018-05-17 20:29] VITALS: BP 123/74
--- NOTE | 2018-05-17 22:30 | NUR ---
PT UP WALKING AROUND ON FLOOR WITH FAMILY AT SIDE. PT COMPLAINES OF PAIN 7/10 IN ABDOMEN. PT STATES, "IM FEELING REALLY NAUSEATED." PRN PAIN MED AND ANTIEMETIC ADMINISTERED. ENCOURGED PT TO KEEP DRINKING MIRALAX AND GATORADE MIXTURE. BED LOW CALL LIGHT WITHIN REACH. WILL CONTINUE TO MONITOR.
[2018-05-18 00:52] VITALS: BP 120/65
--- NOTE | 2018-05-18 01:04 | NUR ---
RESTING QUIETLY WITH EYES CLOSED. RESP EVEN AND NONLABORED. NO DISTRESS. SR ELEVATED X2. CL IN REACH.
--- NOTE | 2018-05-18 01:36 | NUR ---
PT RESTING IN BED WITH EYES CLOSED. RR-EVEN AND UNLABORED. NO S/S OF DISTRESS. BED LOW CALL LIGHT WITHIN REACH. WILL CONTINUE TO MONITOR.
[2018-05-18 04:00] VITALS: BP 121/64
--- NOTE | 2018-05-18 04:36 | NUR ---
PT REQUESTING PRN PAIN MEDICATION FOR PAIN 7/10 IN ABDOMEN. BOWEL SOUNDS ACTIVE X4. ENCOURGED PT TO DRINK MIRALAX. BED LOW CALL LIGHT WITHIN REACH. WILL CONTINUE TO [facility].
--- NOTE | 2018-05-18 07:29 | NUR ---
REPORT RECEIVED. WILL CONTINUE WITH POC. PT CURRENTLY LYING SEMI FOWLERS. CALL LIGHT W/I REACH. PT IS AAO AND UP AD WILY. RR EVEN AND UNLABORED ON RA. NS INFUSING @100ML/HR VIA L.FOR PIV. PT DENIES ANY NEEDS AT THIS TIME. WILL CTM.
[2018-05-18 07:37] LABS: BASOPHILS 0.2 % (0-2); EOSINOPHILS 2.1 % (0-7); HEMATOCRIT 36.1 % (42.0-54.0); HEMOGLOBIN 12.2 g/dL (13.5-17.5); IMMATURE GRANULOCYTES 0.2 % (0-5); LYMPHOCYTES 43.9 % (15-50); MCH 30.7 pg (26.0-34.0); MCHC 33.8 g/dL (31.0-37.0); MCV 90.7 fL (80.0-100.0); MEAN PLATELET VOLUME 10.9 fL (7.4-10.4); MONOCYTES 9.2 % (2-11); NEUTROPHILS 44.4 % (40-80); PLATELET COUNT 293 10x3/uL (130-400); RBC 3.98 10x6/uL (4.20-6.10); WBC 4.3 10x3/uL (4.8-10.8)
[2018-05-18 08:01] LABS: ALBUMIN 3.2 g/dL (3.4-5.0); ANION GAP 13.2 mmol/L (8-16); BILIRUBIN - TOTAL 0.41 mg/dL (0.2-1.3); CALCIUM 8.8 mg/dL (8.5-10.1); CARBON DIOXIDE 26.5 mmol/L (21.0-32.0); CREATININE - SERUM 1.3 mg/dL (0.6-1.3); POTASSIUM - SERUM 3.7 mmol/L (3.5-5.1); PROTEIN - SERUM 6.5 g/dL (6.4-8.2)
[2018-05-18 08:50] VITALS: BP 127/68
--- NOTE | 2018-05-18 10:08 | MORECARE ---
CASE MANAGEMENT DISCHARGE SUMMARY PATIENT: DANITZA MELENDREZ IV UNIT: [id number] ADM DATE: 05/11/18 AGE: 27 : [birth year] SEX: M ROOM/BED: D.1202 AUTHOR: ADRIANE QUAN PHYSICIAN: REFERRING PHYSICIAN: CELY STEELE MD DATE OF SERVICE: 05/18/18 Discharge Plan Patient Name: DANITZA MELENDREZ Facility: [facility]:[place] : 1990 Planned Disposition: Home Anticipated Discharge Date: Discharge Date: Expected LOS: Initial Reviewer: [email or web address] Initial Review Date: 05/18/2018 Generated: 05/18/18 11:07 am Comments DCP- Discharge Planning Updated by [email or web address]: Kitty Still on 05/18/18 9:[address] Patient Name: DANITZA MELENDREZ Admission Status: ER Accout number: [id number] Admission Date: 05-11-2018 : 1990 Admission Diagnosis:ABDOMINAL DISTENSION (GASEOUS) Attending: CELY STEELE Current LOS: 7 Anticipated DC Date: Planned Disposition: Home Primary Insurance: [employer] [facility] Discharge Planning Comments: CM MET WITH PATIENT AND HIS MOTHER ABOUT DC PLANNING. DENIES NEEDS AT THIS TIME AND STATES PLANS TO RETURN HOME AT TIMEOF DISCHARGE. CM WILL FOLLOW AND ASSIST NEEDED WITH DC PLANNING/NEEDS. Senior Database Administrator: Kitty Still DCPIA - Discharge Planning Initial Assessment Updated by [email or web address]: Kitty Still on 05/18/18 10:03 am * Is the patient Alert and Oriented? Yes * PCP JENNIFFER * Pharmacy [facility] * Preadmission Environment Home with Family * ADLs Independent * List name and contact numbers for known caregivers / representatives who currently or will assist patient after discharge: ELIZABETH, * Additional services required to return to the preadmission environment? No * Can the patient safely return to the preadmission environment? Yes * Has this patient been hospitalized within the prior 30 days at any hospital? Yes Patient Name: DANITZA MELENDREZ Page [id number] at 1008 All edits/amendments must be made on the electronic document DICTATION DATE: 05/18/18 1007 CONSULTING ACTUARY: DM 05/18/18 1007 RPT#: [id number] DC DATE: STATUS: ADM IN [facility] [address] [place] [address] END OF REPORT
[2018-05-18 20:17] VITALS: BP 145/66
[2018-05-18 22:33] VITALS: BP 115/70
--- NOTE | 2018-05-18 23:00 | NUR ---
ORDER TO DISCHARGE AFTER THIRD DOSE OF REGLAN. PT STATES HE "ISN'T WELL ENOUGH TO DISCHARGE." CALLED PHYSICIAN BOTANY TECHNICIAN. DR. GAR STATES TO DISCHARGE PT IN THE MORNING.
[2018-05-19 00:42] VITALS: BP 130/70
[2018-05-19 05:10] VITALS: BP 122/62
[2018-05-19 07:10] LABS: ALBUMIN 3.1 g/dL (3.4-5.0); ALKALINE PHOSPHATASE 90 U/L (46-116); ALT (SGPT) 37 U/L (10-68); BILIRUBIN - TOTAL 0.42 mg/dL (0.2-1.3); CALC OSMOLALITY 277 mosm/kg (275-300); CALCIUM 8.8 mg/dL (8.5-10.1); CARBON DIOXIDE 28.2 mmol/L (21.0-32.0); CHLORIDE - SERUM 103 mmol/L (98-107); CREATININE - SERUM 1.2 mg/dL (0.6-1.3); POTASSIUM - SERUM 4.1 mmol/L (3.5-5.1); PROTEIN - SERUM 6.4 g/dL (6.4-8.2); SODIUM 140 mmol/L (136-145); UREA NITROGEN 11 mg/dL (7-18); eGFR NON AFRICAN AMERICAN 78 mL/min (90-120)
[2018-05-19 07:12] LABS: HEMATOCRIT 35.9 % (42.0-54.0); HEMOGLOBIN 12.1 g/dL (13.5-17.5); MCH 30.3 pg (26.0-34.0); MCHC 33.7 g/dL (31.0-37.0); MEAN PLATELET VOLUME 10.4 fL (7.4-10.4); PLATELET COUNT 297 10x3/uL (130-400); RBC 3.99 10x6/uL (4.20-6.10); RDW 12.9 % (11.5-14.5)
[2018-05-19 07:13] LABS: GLUCOSE 94 mg/dL (74-106)
--- NOTE | 2018-05-19 08:01 | NUR ---
PT OUT OF ROOM AT THIS TIME
[2018-05-19 08:15] LABS: BASOPHILS 1 % (0-2); EOSINOPHILS 2 % (0-7); LYMPHOCYTES 54 % (15-50); MONOCYTES 6 % (2-11); NEUTROPHILS 32 % (40-80); PLATELET ESTIMATE NORMAL; PLATELET MORPHOLOGY GIANT PLTS PRESENT
--- NOTE | 2018-05-19 08:32 | NUR ---
IV DC WITH CATH INTACT, DC INSTURCTIONS GIVEN PT VERABLIZES UNDERSTANDING, NO QUESTIONS OR CONCERNS VOICED, PT AWAITING HIS RIDE
--- NOTE | 2018-05-20 08:49 | MORECARE ---
CASE MANAGEMENT DISCHARGE SUMMARY PATIENT: DANITZA MELENDREZ IV UNIT: [id number] ADM DATE: 05/11/18 AGE: 27 : [birth year] SEX: M ROOM/BED: D.1202 AUTHOR: ADRIANE QUAN PHYSICIAN: REFERRING PHYSICIAN: CELY STEELE MD DATE OF SERVICE: 05/20/18 Discharge Plan Patient Name: DANITZA MELENDREZ Facility: [facility]:[place] : 1990 Planned Disposition: Home Anticipated Discharge Date: Discharge Date: 05/19/2018 Expected LOS: Initial Reviewer: [email or web address] Initial Review Date: 05/18/2018 Generated: 05/20/18 9:49 am Comments DCP- Discharge Planning Updated by [email or web address]: Kitty Still on 05/18/18 9:[address] Patient Name: DANITZA MELENDREZ Admission Status: ER Accout number: [id number] Admission Date: 05-11-2018 : 1990 Admission Diagnosis:ABDOMINAL DISTENSION (GASEOUS) Attending: CELY STEELE Current LOS: 7 Anticipated DC Date: Planned Disposition: Home Primary Insurance[facility] Discharge Planning Comments: CM MET WITH PATIENT AND HIS MOTHER ABOUT DC PLANNING. DENIES NEEDS AT THIS TIME AND STATES PLANS TO RETURN HOME AT TIMEOF DISCHARGE. CM WILL FOLLOW AND ASSIST NEEDED WITH DC PLANNING/NEEDS. Terminal Gauger: Kitty Still DCPIA - Discharge Planning Initial Assessment Updated by [email or web address]: Kitty Still on 05/18/18 10:03 am * Is the patient Alert and Oriented? Yes * PCP GUICHOO * Pharmacy [facility] * Preadmission Environment Home with Family * ADLs Independent * List name and contact numbers for known caregivers / representatives who currently or will assist patient after discharge: ELIZABETH, * Additional services required to return to the preadmission environment? No * Can the patient safely return to the preadmission environment? Yes * Has this patient been hospitalized within the prior 30 days at any hospital? Yes Last DP export: 05/18/18 9:08 a Patient Name: DANITZA MELENDREZ Page [id number] at 0849 All edits/amendments must be made on the electronic document DICTATION DATE: 05/20/1848 ASSEMBLER SMALL PRODUCTS: DELORES 05/20/1848 RPT#: [id number] DC DATE:05/19/18 STATUS: DIS IN [facility] [address] [place] [address] END OF REPORT
== END 2018-05-19 10:35 | disposition home or self-care (01) | DRG 392 ==
LOC: D.ER 16:12 → D.M3 22:32 → D.EDHOLD 22:32 → D.M3 22:41
PROVIDERS: Family Medicine; ADMIT Surgery
DX: K59.2 Neurogenic bowel, not elsewhere classified (principal); K29.70 Gastritis, unspecified, without bleeding

== ENCOUNTER 2018-05-22 03:52 | Inpatient (IN) | payer BC ==
[~2018-05-22] VITALS: Ht 175.3 cm; Wt 78.9 kg
[~2018-05-22 03:52] MED LIST changes: +PHENERGAN25 M1 PO; +SINGULAIR10 MG PO
[2018-05-22 04:10] LABS: BASOPHILS 0.6 % (0-2); EOSINOPHILS 2.9 % (0-7); HEMOGLOBIN 14.1 g/dL (13.5-17.5); IMMATURE GRANULOCYTES 0.4 % (0-5); LYMPHOCYTES 47.8 % (15-50); MCH 30.9 pg (26.0-34.0); MCHC 34.4 g/dL (31.0-37.0); MCV 89.9 fL (80.0-100.0); MEAN PLATELET VOLUME 10.3 fL (7.4-10.4); MONOCYTES 13.5 % (2-11); NEUTROPHILS 34.8 % (40-80); PLATELET COUNT 354 10x3/uL (130-400); RBC 4.56 10x6/uL (4.20-6.10); RDW 12.8 % (11.5-14.5); WBC 4.9 10x3/uL (4.8-10.8)
[2018-05-22 04:28] LABS: ALBUMIN 4.1 g/dL (3.4-5.0); ANION GAP 16.2 mmol/L (8-16); BILIRUBIN - TOTAL 0.41 mg/dL (0.2-1.3); CALCIUM 9.8 mg/dL (8.5-10.1); CARBON DIOXIDE 29.2 mmol/L (21.0-32.0); CREATININE - SERUM 1.4 mg/dL (0.6-1.3); POTASSIUM - SERUM 4.4 mmol/L (3.5-5.1)
[2018-05-22 04:56] LABS: APPEARANCE CLEAR (CLEAR); BILIRUBIN NEGATIVE (NEGATIVE); COLOR YELLOW (YELLOW); GLUCOSE NEGATIVE (NEGATIVE); KETONE NEGATIVE (NEGATIVE); NITRITE NEGATIVE (NEGATIVE); PROTEIN 1+ mg/dL (NEGATIVE); UROBILINOGEN NORMAL (NORMAL)
[2018-05-22 04:57] LABS: BACTERIA FEW /hpf (NONE SEEN); EPITHELIAL CELLS 0-5 /hpf (0-5); RED CELLS - URINE 0-5 /hpf (0-5); WHITE CELLS - URINE 0-5 /hpf (0-5)
--- NOTE | 2018-05-22 05:20 | NUR ---
PT C/O NAUSEA AND ABD PAIN MD INFORMED. SEE EMAR
--- NOTE | 2018-05-22 06:05 | NUR ---
PT VOMITED AT THIS TIME. C/O NAUSEA AND PAIN. INFORMED. SEE EMAR. CT INFORMED.
[2018-05-22 08:30] VITALS: BP 133/76
--- NOTE | 2018-05-22 09:35 | NUR ---
16FR NG TUBE PLACED, USING VISCOUS LIDOCAINE FOR INCREASED COMFORT. NO COMPLICATIONS WITH INSERTION. IMMEDIATE YELLOW STOMACH CONTENTS RETURNED.
--- NOTE | 2018-05-22 09:54 | MORECARE ---
CASE MANAGEMENT DISCHARGE SUMMARY PATIENT: DANITZA MELENDREZ IV UNIT: [id number] ADM DATE: 05/22/18 AGE: 27 : [birth year] SEX: M ROOM/BED: D.E06 AUTHOR: KADEEMDOC PHYSICIAN: REFERRING PHYSICIAN: KATERYNA DUMONT MD DATE OF SERVICE: 05/22/18 Discharge Plan Patient Name: DANITZA MELENDREZ Facility: [facility]:[place] : 1990 Planned Disposition: Home Anticipated Discharge Date: 05/25/18 Discharge Date: Expected LOS: 3 Initial Reviewer: [email or web address] Initial Review Date: 05/22/2018 Generated: 05/22/18 10:54 am DCP- Discharge Planning Updated by [email or web address]: Karol Osorio on 05/22/18 8:[address] Patient Name: DANITZA MELENDREZ Admission Status: ER Admission Date: 05-22-2018 : 1990 Admission Diagnosis: Attending: KATERYNA DUMONT Current LOS: 1 Anticipated DC Date: 05-25-2018 Planned Disposition: Home Primary Insurance: [employer] [facility] Discharge Planning Comments: CM met with patient to complete initial dc planning assessment. CM educated patient on the CM role and verbal consent given by patient to complete assessment. Patient lives at home with his mother and reports he is independent in his care. At discharge patient plans to return home with his mother and feels this is a safe discharge. CM discussed availability of home health, rehab services, and medical equipment. Patient denied known discharge needs at this time. CM will continue to follow and will assist as needed with dc plans/needs. Vocational Education Professional: Karol Osorio RN, [facility] DCPIA - Discharge Planning Initial Assessment Updated by [email or web address]: Karol Osorio on 05/22/18 9:49 am * Is the patient Alert and Oriented? Yes * PCP Dr. Almaguer * Pharmacy [facility] * Preadmission Environment Home with Family * ADLs Independent * Equipment None * List name and contact numbers for known caregivers / representatives who currently or will assist patient after discharge: Geeta Augustine - [facility] - [phone] * Verbal permission to speak to the caregivers and representatives has been obtained from the patient. Yes * Community resources currently utilized None * Additional services required to return to the preadmission environment? No * Can the patient safely return to the preadmission environment? Yes * Has this patient been hospitalized within the prior 30 days at any hospital? Yes Patient Name: DANITZA MELENDREZ Page 16601 at 0954 All edits/amendments must be made on the electronic document DICTATION DATE: 05/22/18953 INSURANCE CHECKER: DELORES 05/22/18953 RPT#: [id number] DC DATE: STATUS: ADM IN [facility] [address] [place] [address] END OF REPORT
[2018-05-22 12:05] VITALS: BP 133/67; BMI 25.7
[2018-05-22 14:21] VITALS: BP 120/72
--- NOTE | 2018-05-22 16:36 | MORECARE ---
CASE MANAGEMENT DISCHARGE SUMMARY PATIENT: DANITZA MELENDREZ IV UNIT: [id number] ADM DATE: 05/22/18 AGE: 27 : [birth year] SEX: M ROOM/BED: D.2219 AUTHOR: KADEEMDOC PHYSICIAN: REFERRING PHYSICIAN: KATERYNA DUMONT MD DATE OF SERVICE: 05/22/18 Discharge Plan Patient Name: DANITZA MELENDREZ Facility: [facility]:[place] : 1990 Planned Disposition: Home Anticipated Discharge Date: 05/25/18 Discharge Date: Expected LOS: 3 Initial Reviewer: [email or web address] Initial Review Date: 05/22/2018 Generated: 05/22/18 5:36 pm Comments DCP- Discharge Planning Updated by [id number]: Penelope Aguilar on 05/22/18 3:[address] Patient Name: DANITZA MELENDREZ Admission Status: ER Admission Date: 05-22-2018 : 1990 Admission Diagnosis: Attending: KATERYNA DUMONT Current LOS: 1 Anticipated DC Date: 05-25-2018 Planned Disposition: Home Primary Insurance: [employer] [facility] Discharge Planning Comments: CM met with patient to complete initial dc planning assessment. CM educated patient on the CM role and verbal consent given by patient to complete assessment. Patient lives at home with his mother and reports he is independent in his care. At discharge patient plans to return home with his mother and feels this is a safe discharge. CM discussed availability of home health, rehab services, and medical equipment. Patient denied known discharge needs at this time. CM will continue to follow and will assist as needed with dc plans/needs. Animal Rehabilitator: Karol Osorio RN, [facility] DCPIA - Discharge Planning Initial Assessment Updated by [email or web address]: Karol Osorio on 05/22/18 9:49 am * Is the patient Alert and Oriented? Yes * PCP Dr. Almaguer * Pharmacy [facility] * Preadmission Environment Home with Family * ADLs Independent * Equipment None * List name and contact numbers for known caregivers / representatives who currently or will assist patient after discharge: Geeta Augustine - mother - [phone] * Verbal permission to speak to the caregivers and representatives has been obtained from the patient. Yes * Community resources currently utilized None * Additional services required to return to the preadmission environment? No * Can the patient safely return to the preadmission environment? Yes * Has this patient been hospitalized within the prior 30 days at any hospital? Yes Last DP export: 05/22/18 8:54 a Patient Name: DANITZA MELENDREZ Page [phone] at 1636 All edits/amendments must be made on the electronic document DICTATION DATE: 05/22/181635 WOMEN'S MINISTRY DIRECTOR: DELORES 05/22/18 1636 RPT#: [id number] DC DATE: STATUS: ADM IN [facility] [address] [place] [address] END OF REPORT
[2018-05-22 17:18] VITALS: BP 107/61
[2018-05-22 20:00] VITALS: BP 104/53
--- NOTE | 2018-05-22 20:22 | NUR ---
LYING QUIELTY WITH NO COMPLAITNS VOICED. NG TO LOW INTERMITTENT SUCTION TO RIGHT NARE WITH DARK GREEN DRAINAGE NOTED. IV INFUSING TO RAC WITHOUT REDNESS OR EDEMA NOTED. ABD SOFT NONDISTEND. CL IN REACH
--- NOTE | 2018-05-22 22:54 | NUR ---
RESTING IN BED RESP UNLABORED NO APPARENT DISTRESS CALL LIGHT IN REACH
[2018-05-23] VITALS: BP 114/47
[2018-05-23 04:00] VITALS: BP 98/61
[2018-05-23 05:36] LABS: BASOPHILS 0.3 % (0-2); HEMATOCRIT 37.5 % (42.0-54.0); HEMOGLOBIN 12.7 g/dL (13.5-17.5); IMMATURE GRANULOCYTES 0.1 % (0-5); LYMPHOCYTES 23.9 % (15-50); MCH 30.4 pg (26.0-34.0); MCHC 33.9 g/dL (31.0-37.0); MCV 89.7 fL (80.0-100.0); MEAN PLATELET VOLUME 10.6 fL (7.4-10.4); MONOCYTES 10.4 % (2-11); NEUTROPHILS 63.3 % (40-80); PLATELET COUNT 309 10x3/uL (130-400); RBC 4.18 10x6/uL (4.20-6.10); RDW 12.9 % (11.5-14.5)
[2018-05-23 05:41] LABS: WBC 7.3 10x3/uL (4.8-10.8)
[2018-05-23 05:59] LABS: ANION GAP 10.6 mmol/L (8-16); CALCIUM 8.7 mg/dL (8.5-10.1); CARBON DIOXIDE 29.2 mmol/L (21.0-32.0); CREATININE - SERUM 1.3 mg/dL (0.6-1.3); POTASSIUM - SERUM 3.8 mmol/L (3.5-5.1)
--- NOTE | 2018-05-23 07:30 | NUR ---
PT REQUESTED PAIN MEDICATION, STATED PAIN IS AT AN 8, ADMINISTERED PRN PAIN MEDICATIO, FAMILY AT BEDSIDE, CONTINUE WITH PLAN OF CARE
--- NOTE | 2018-05-23 07:45 | NUR ---
PATIENT IN BED WITH IV AND NGT INTACT. COMPLAINTS OF PAIN AT THIS TIME. NOTIFIED SCREEN PRINTING EQUIPMENT SETTER. PATIENT CALL LIGHT WITHIN REACH.
[2018-05-23 08:20] VITALS: BP 120/57
--- NOTE | 2018-05-23 10:30 | NUR ---
PT REUESTED TO BE UNHOOKED FROM IV SO HE MAY SHOWER, UNHOOKED PT FROM NGT CANISTER TO TAKE SHOWER, WHEN PT CAME OUT NGT SLID SNF OUT, ASSISTED PT BACK TO BED HAD HIM SIT UPRIGHT AND READVANCED NGT, PT FAMILY AT BEDSIDE, CONTINUE WITH PLAN OF CARE
[2018-05-23 12:42] VITALS: BP 115/64
[2018-05-23 13:28] VITALS: Ht 175.3 cm; Wt 78.9 kg
[2018-05-23 16:34] VITALS: BP 174/90
--- NOTE | 2018-05-23 17:55 | NUR ---
PT LYING IN BED, PT AND FAMILY WAITING ON SURGERY STILL, NO OTHER NEEDS VOICED, CONTINUE WITH PLAN OF CARE
--- NOTE | 2018-05-23 18:28 | NUR ---
RECEIVED CALL TO PREOP PT, NO PREOP ORDERS ON CHART, CALL SURGERY BACK NO ANSWER WILL ADVISE WHEN PICKED UP
--- NOTE | 2018-05-23 19:32 | NUR ---
TO OR VIA BED.NO DISTRESS NOTED.
[2018-05-23 20:57] VITALS: BP 123/71
--- NOTE | 2018-05-23 21:00 | NUR ---
RETURNED FROM OR. AWAKE,ALERT.RESP UNALBORED. NO DISTRESS NOTED. IV TO RFA INTACT WITHOUT REDNESS OR EDEMA NOTED. NO COMPLAITNS VOICED. FAMILY AT BEDSIDE.
--- NOTE | 2018-05-23 21:05 | NUR ---
VERBAL ORDERS RECEIVED FROM DR SANCHEZ TO DISCONTINUE THE NASOGASTRIC TUBE. ORDERS RECEIVED AND IMPLEMENTED. PATIENT TOLERATED THIS PROCEDURE WITHOUT DIFFICULTY. WILL CONTINUE TO MONITOR.
--- NOTE | 2018-05-23 21:11 | NUR ---
REC'D BACK TO ROOM POST OP FECAL REMOVAL FROM STOMA. IV IN PLACE SR UP X2 CALL LIGHT WITHIN REACH.
[2018-05-24 05:52] VITALS: BP 98/49
--- NOTE | 2018-05-24 07:30 | NUR ---
PT RESTING IN BED, EYES OPEN. C/O PAIN, GAVE DILAUDID FOR PAIN. C/O NAUSEA, GAVE ZOFRAN. NO S/S OF ACUTE DISTRESS NOTED. PT UP AD WILY. IV TO RIGHT AC, D5 LR INFUSING @ 100ML/HR. SITE PATENT WITHOUT REDNESS OR SWELLING. PT HAD SURGERY YESTERDAY TO REMOVE AN IMPACTION FROM COLON. PT DENIES ANYTHING FURTHER AT THIS TIME. CALL LIGHT IN REACH. WILL CONTINUE TO MONITOR.
[2018-05-24 09:04] VITALS: BP 103/53
--- NOTE | 2018-05-24 11:13 | OP ---
PATIENT NAME: ABDULKADIR MELENDREZ IV MEDICAL RECORD: [id number] :[birth year] LOCATION:D.[id number] ADMISSION DATE:05/22/18 SURGEON: ABDULKADIR SANCHEZ MD DATE OF OPERATION: 05/23/2018 PREOPERATIVE DIAGNOSES: 1. Bowel atony. 2. Recurrent fecal impaction. POSTOPERATIVE DIAGNOSES: 1. Bowel atony. 2. Recurrent fecal impaction. PROCEDURE: Manual fecal disimpaction under general anesthesia. SURGEON: Abdulkadir Sanchez MD LUNCHEONETTE OPERATOR: None. BLOOD LOSS: Minimal. ANESTHESIA: General. COMPLICATIONS: None. INDICATIONS: Other modalities have not improved his gaseous distention or the fecal impactions. Therefore, I have recommended a manual disimpaction in the operating room under general anesthesia, where we can induce a paralytic which will help relax his abdominal wall. OPERATIVE COURSE: The patient was conveyed to the operating room electively on 05/23/2018. General anesthesia was induced by the anesthesia staff. The patient was placed in lithotomy position. The anus and perianal areas were sterilely prepped and draped with a nurse applying pressure starting in the upper abdomen and then pushing down into the lower abdomen. I mechanically disimpacted the patient by inserting 2 fingers into his anus and then removing fecal material in a piecemeal fashion. We also irrigated up into the anus with normal saline, and we were able to disimpact a significant amount of fecal material. A topical anesthetic cream was applied to the external hemorrhoids. The patient was then extubated and conveyed to the post-anesthesia care unit. X-rays are pending. TRANSINT:[id number] Voice Confirmation ID: [id number] DOCUMENT ID: [id number] ABDULKADIR SANCHEZ MD at 1113 CC: [id number] DICTATION DATE: 05/23/182015 ESCALATOR MECHANIC: 05/24/18 0046 ADM IN [place] [place] [id number] [place] [address]
[2018-05-24 13:33] VITALS: BP 102/44
[2018-05-24 16:56] VITALS: BP 95/33
--- NOTE | 2018-05-24 18:24 | NUR ---
I have reviewed this patient and I concur with the Shift Assessment completed by the Licensed Practical Nurse today this shift.
--- NOTE | 2018-05-24 18:48 | NUR ---
PT RESTING IN BED, EYES OPEN. NO C/O PAIN. NO S/S OF ACUTE DISTRESS NOTED. PT DENIES ANYTHING FURTHER AT THIS TIME. CALL LIGHT IN REACH. WILL CONTINUE TO MONITOR.
--- NOTE | 2018-05-24 20:45 | NUR ---
PATIENT UP AMBULATING IN HALLWAY. RESP UNLABORED.NO DISTRESS NOTED. IV TO RAC INTACT WITHOUT REDNESS OR EDEMA NOTED. NO COMPLAINTS VOICED.
[2018-05-24 21:46] VITALS: BP 108/65
--- NOTE | 2018-05-24 23:03 | NUR ---
IV LEAKING. RESITED TO LFA WITH 22G X 1 ATTEMPT. NO COMPLAITNS VOICED.
[2018-05-25 01:48] VITALS: BP 108/58
--- NOTE | 2018-05-25 03:47 | NUR ---
I have reviewed this patient and I concur with the Shift Assessment completed by the Licensed Practical Nurse today this shift.
[2018-05-25 05:11] VITALS: BP 100/48
[2018-05-25 06:59] LABS: BASOPHILS 0.3 % (0-2); EOSINOPHILS 2.1 % (0-7); HEMATOCRIT 34.4 % (42.0-54.0); HEMOGLOBIN 11.4 g/dL (13.5-17.5); IMMATURE GRANULOCYTES 0.3 % (0-5); LYMPHOCYTES 29.8 % (15-50); MCHC 33.1 g/dL (31.0-37.0); MCV 90.5 fL (80.0-100.0); MEAN PLATELET VOLUME 11.2 fL (7.4-10.4); MONOCYTES 12.3 % (2-11); NEUTROPHILS 55.2 % (40-80); PLATELET COUNT 277 10x3/uL (130-400); RDW 12.9 % (11.5-14.5); WBC 7.2 10x3/uL (4.8-10.8)
[2018-05-25 07:05] LABS: CALC OSMOLALITY 279 mosm/kg (275-300); CALCIUM 8.6 mg/dL (8.5-10.1); CARBON DIOXIDE 27.9 mmol/L (21.0-32.0); CHLORIDE - SERUM 104 mmol/L (98-107); CREATININE - SERUM 1.1 mg/dL (0.6-1.3); GLUCOSE 104 mg/dL (74-106); POTASSIUM - SERUM 3.8 mmol/L (3.5-5.1); SODIUM 140 mmol/L (136-145); UREA NITROGEN 14 mg/dL (7-18); eGFR NON AFRICAN AMERICAN 87 mL/min (90-120)
[2018-05-25 08:00] VITALS: BP 126/61
[2018-05-25 11:54] VITALS: BP 111/58
--- NOTE | 2018-05-25 12:00 | NUR ---
NUTRITION F/U PT NOW NPO. MAY BENEFIT FROM PROCALAMINE IF UNABLE TO TOLERATE PO IN 24 TO 48 HOURS. CURRENTLY WITH D5LR @ 100 CC/HR. RD FOLLOWING
[2018-05-25 15:11] VITALS: BP 112/68
--- NOTE | 2018-05-25 15:18 | NUR ---
I have reviewed this patient and I concur with the Shift Assessment completed by the Licensed Practical Nurse today this shift.
--- NOTE | 2018-05-25 19:00 | NUR ---
BEDSIDE REPORT RECEIVED AND CARE OF PT ASSUMED. PT AMBULATING IN ROOM AT THIS TIME. IV IN LEFT FA PATENT WITH D5LR INFUSING AT 100 ML / HR. WILL MONITOR FOR NEEDS.
--- NOTE | 2018-05-25 19:25 | NUR ---
GAVE ZOFRAN IVP FOR C/O NAUSEA.
[2018-05-25 20:08] VITALS: BP 93/44
--- NOTE | 2018-05-25 21:00 | NUR ---
PT AMBULATING IN THE HALLWAY WITH FAMILY MEMBERS.
--- NOTE | 2018-05-25 21:50 | NUR ---
HS MEDICATIONS GIVEN TO INCLUDE PHENERGAN IM FOR NAUSEA AND DILAUDID FOR PAIN. WILL CONTINUE TO MONITOR FOR NEEDS.
[2018-05-26 00:46] VITALS: BP 117/72
--- NOTE | 2018-05-26 04:35 | NUR ---
COLLECTED URINE FOR ORDERED STUDIES. DELIVERED TO LAB.
[2018-05-26 05:55] LABS: BASOPHILS 0.7 % (0-2); EOSINOPHILS 3.3 % (0-7); HEMOGLOBIN 11.3 g/dL (13.5-17.5); IMMATURE GRANULOCYTES 0.2 % (0-5); MCH 30.1 pg (26.0-34.0); MCHC 33.2 g/dL (31.0-37.0); MCV 90.7 fL (80.0-100.0); NEUTROPHILS 41.8 % (40-80); PLATELET COUNT 275 10x3/uL (130-400); RBC 3.75 10x6/uL (4.20-6.10); RDW 12.7 % (11.5-14.5)
[2018-05-26 05:59] LABS: WBC 4.5 10x3/uL (4.8-10.8)
[2018-05-26 06:08] VITALS: BP 125/65
[2018-05-26 06:29] LABS: CALC OSMOLALITY 278 mosm/kg (275-300); CALCIUM 8.6 mg/dL (8.5-10.1); CARBON DIOXIDE 26.7 mmol/L (21.0-32.0); CHLORIDE - SERUM 105 mmol/L (98-107); CREATININE - SERUM 1.2 mg/dL (0.6-1.3); GLUCOSE 101 mg/dL (74-106); SODIUM 141 mmol/L (136-145); UREA NITROGEN 8 mg/dL (7-18); eGFR NON AFRICAN AMERICAN 78 mL/min (90-120)
--- NOTE | 2018-05-26 07:53 | NUR ---
PT LYING IN BED C/O ABDOMINAL DISCOMFORT, ASKED IF PT WAS NAUSEOUS OR HAVING PAIN, STATED PAIN AND ASKED FOR PRN PAIN MEDICATION, ADMINISTERED PRN PAIN MED WELL MEDS PER MAR. HYPOACTIVE ABDOMINAL SOUNDS. CONTINUE WITH PLAN OF CARE
[2018-05-26 08:08] VITALS: BP 107/55
--- NOTE | 2018-05-26 14:33 | NUR ---
PT STATED STILL NAUSEOUS, ADMINISTERED PRN NAUSEA MEDICATION, MOTHER AT BEDSIDE, NO OTHER NEEDS VOICED CONTINUE WITH PLAN OF CARE
[2018-05-26 16:31] VITALS: BP 114/60
--- NOTE | 2018-05-26 17:00 | NUR ---
I have reviewed this patient and I concur with the Shift Assessment completed by the Licensed Practical Nurse today this shift.
[2018-05-26 19:54] VITALS: BP 103/61
--- NOTE | 2018-05-26 21:15 | NUR ---
PT AMBULATING IN HALLWAY.
--- NOTE | 2018-05-26 21:30 | NUR ---
HS MEDICATIONS GIVEN. WILL CONTINUE TO MONITOR FOR NEEDS.
[2018-05-27] VITALS: BP 111/67
--- NOTE | 2018-05-27 01:23 | NUR ---
PT C/O PAIN AND NAUSEA. GAVE DILAUDID IVP AND PHENERGAN IM PER PRN ORDERS. GAVE SCHEDULED REGLAN. WILL MONITOR FOR EFFECTIVENESS. SIDE RAILS UP X2 FOR SAFETY.
--- NOTE | 2018-05-27 02:33 | NUR ---
GAVE DILAUDID 1 MG IVP AND ZOFRAN 4 MG IVP FOR C/O PAIN AND NAUSEA. WILL MONITOR FOR EFFECTIVENESS.
[2018-05-27 03:58] VITALS: BP 117/58
[2018-05-27 06:31] LABS: BASOPHILS 0.7 % (0-2); EOSINOPHILS 3.1 % (0-7); HEMATOCRIT 36.7 % (42.0-54.0); HEMOGLOBIN 12.2 g/dL (13.5-17.5); IMMATURE GRANULOCYTES 0.4 % (0-5); LYMPHOCYTES 38.5 % (15-50); MCHC 33.2 g/dL (31.0-37.0); MCV 90.4 fL (80.0-100.0); MEAN PLATELET VOLUME 10.7 fL (7.4-10.4); MONOCYTES 11.9 % (2-11); NEUTROPHILS 45.4 % (40-80); PLATELET COUNT 290 10x3/uL (130-400); RBC 4.06 10x6/uL (4.20-6.10); RDW 12.5 % (11.5-14.5); WBC 4.6 10x3/uL (4.8-10.8)
[2018-05-27 07:05] LABS: CALC OSMOLALITY 276 mosm/kg (275-300); CALCIUM 8.9 mg/dL (8.5-10.1); CARBON DIOXIDE 27.3 mmol/L (21.0-32.0); CHLORIDE - SERUM 104 mmol/L (98-107); CREATININE - SERUM 1.2 mg/dL (0.6-1.3); GLUCOSE 91 mg/dL (74-106); POTASSIUM - SERUM 3.9 mmol/L (3.5-5.1); SODIUM 140 mmol/L (136-145); UREA NITROGEN 8 mg/dL (7-18); eGFR NON AFRICAN AMERICAN 78 mL/min (90-120)
--- NOTE | 2018-05-27 07:35 | NUR ---
PT AMBULATING IN THE HALLS NO SIGNS OF DISTRESS NOTED
[2018-05-27 08:42] VITALS: BP 100/61
--- NOTE | 2018-05-27 19:00 | NUR ---
REPORT RECEIVED AND CARE OF PT ASSUMED. PT LYING IN LOW GRAYSON'S POSITION WATCHING TV. IV IN LEFT WRIST PATENT WITH D5LR INFUSING AT 100 ML / HR. PT HAS BEEN ADVANCED TO FULL LIQUID DIET. WILL MONITOR FOR NEEDS.
--- NOTE | 2018-05-27 19:35 | NUR ---
I have reviewed this patient and I concur with the Shift Assessment completed by the Licensed Practical Nurse today this shift.
--- NOTE | 2018-05-27 20:55 | NUR ---
HS MEDICATIONS GIVEN TO INCLUDE COLACE PER PRN ORDER.
[2018-05-27 21:04] VITALS: BP 114/81
--- NOTE | 2018-05-27 22:30 | NUR ---
GAVE DILAUDID 1 MG IVP AND PHENERGAN 12.5 MG IM PER REQUEST FOR PAIN AND NAUSEA. WILL MONITOR FOR EFFECTIVENESS.
[2018-05-28 04:36] VITALS: BP 133/82
--- NOTE | 2018-05-28 04:55 | NUR ---
PT REPORTS HAVING A LARGE LOOSE STOOL THIS AM.
[2018-05-28 05:46] LABS: BASOPHILS 0.2 % (0-2); EOSINOPHILS 2.9 % (0-7); HEMATOCRIT 35.4 % (42.0-54.0); HEMOGLOBIN 11.8 g/dL (13.5-17.5); IMMATURE GRANULOCYTES 0.2 % (0-5); LYMPHOCYTES 27.4 % (15-50); MCH 30.1 pg (26.0-34.0); MCHC 33.3 g/dL (31.0-37.0); MCV 90.3 fL (80.0-100.0); MEAN PLATELET VOLUME 10.3 fL (7.4-10.4); MONOCYTES 12.9 % (2-11); NEUTROPHILS 56.4 % (40-80); PLATELET COUNT 305 10x3/uL (130-400); RBC 3.92 10x6/uL (4.20-6.10); RDW 12.7 % (11.5-14.5)
[2018-05-28 05:55] LABS: WBC 5.8 10x3/uL (4.8-10.8)
[2018-05-28 06:23] LABS: CALC OSMOLALITY 279 mosm/kg (275-300); CALCIUM 9.1 mg/dL (8.5-10.1); CARBON DIOXIDE 28.8 mmol/L (21.0-32.0); CHLORIDE - SERUM 104 mmol/L (98-107); CREATININE - SERUM 1.2 mg/dL (0.6-1.3); GLUCOSE 100 mg/dL (74-106); POTASSIUM - SERUM 4.1 mmol/L (3.5-5.1); SODIUM 141 mmol/L (136-145); UREA NITROGEN 9 mg/dL (7-18); eGFR NON AFRICAN AMERICAN 78 mL/min (90-120)
[2018-05-28 08:29] VITALS: BP 104/51
--- NOTE | 2018-05-28 08:58 | NUR ---
PT REQUESTED PAIN MEDICATION WITH AM MEDS, ADMINISTER SCHEDULED MEDS PER MAY AND PRN PAIN MED. SL PT AND WRAPPED UP IV SO HE MAY GET IN SHOWER, NO OTHER NEEDS VOICED, CONTINUE WITH PLAN OF CARE
[2018-05-28 12:46] VITALS: BP 116/69
--- NOTE | 2018-05-28 14:00 | NUR ---
I have reviewed this patient and I concur with the Shift Assessment completed by the Licensed Practical Nurse today this shift.
--- NOTE | 2018-05-28 14:32 | NUR ---
I have reviewed this patient and I concur with the Shift Assessment completed by the Licensed Practical Nurse today this shift.
--- NOTE | 2018-05-28 14:49 | NUR ---
PT LYING IN BED, EYES CLOSED, EVEN RISE AND FALL OF CHEST, NO S/S OF DISTRESS, CONTINUE WITH PLAN OF CARE
[2018-05-28 16:47] VITALS: BP 102/65
[2018-05-28 22:13] VITALS: BP 95/59
[2018-05-29 01:27] VITALS: BP 127/67
[2018-05-29 05:18] VITALS: BP 104/51
[2018-05-29 06:00] LABS: BASOPHILS 0.5 % (0-2); EOSINOPHILS 3.4 % (0-7); HEMOGLOBIN 10.8 g/dL (13.5-17.5); IMMATURE GRANULOCYTES 0.2 % (0-5); LYMPHOCYTES 45.5 % (15-50); MCH 30.1 pg (26.0-34.0); MCHC 33.8 g/dL (31.0-37.0); MCV 89.1 fL (80.0-100.0); MEAN PLATELET VOLUME 10.2 fL (7.4-10.4); NEUTROPHILS 34.4 % (40-80); PLATELET COUNT 265 10x3/uL (130-400); RBC 3.59 10x6/uL (4.20-6.10); RDW 12.6 % (11.5-14.5); WBC 4.4 10x3/uL (4.8-10.8)
[2018-05-29 06:14] LABS: CALC OSMOLALITY 279 mosm/kg (275-300); CALCIUM 8.7 mg/dL (8.5-10.1); CARBON DIOXIDE 26.9 mmol/L (21.0-32.0); CHLORIDE - SERUM 105 mmol/L (98-107); CREATININE - SERUM 1.2 mg/dL (0.6-1.3); GLUCOSE 102 mg/dL (74-106); POTASSIUM - SERUM 3.9 mmol/L (3.5-5.1); SODIUM 141 mmol/L (136-145); UREA NITROGEN 10 mg/dL (7-18); eGFR NON AFRICAN AMERICAN 78 mL/min (90-120)
--- NOTE | 2018-05-29 08:06 | NUR ---
PT REQUESTED PAIN AND NAUSEA MEDICATION, ABDOMINAL DISCOMFORT, PT STATED HE DID HAVE A LOOSE BM LAST NIGHT, ADMINISTER PRN PAIN MEDS, CONTINUE WITH PLAN OF CARE
[2018-05-29 09:17] VITALS: BP 132/66
[2018-05-29] MEDS ORDERED: COLACE100 MG PO (11:46)
[2018-05-29] MEDS ORDERED: DULCOLAX10 MG/SUPP RC (11:46)
[2018-05-29] MEDS ORDERED: AMERICAINE HEMO30 GM TOPICAL (11:47)
--- NOTE | 2018-05-29 12:11 | MORECARE ---
CASE MANAGEMENT DISCHARGE SUMMARY PATIENT: DANITZA MELENDREZ IV UNIT: [id number] ADM DATE: 05/22/18 AGE: 27 : [birth year] SEX: M ROOM/BED: D.2219 AUTHOR: ADRIANE QUAN PHYSICIAN: REFERRING PHYSICIAN: KATERYNA DUMONT MD DATE OF SERVICE: 05/29/18 Discharge Plan Patient Name: DANITZA MELENDREZ Facility: [facility]:[place] : 1990 Planned Disposition: Home Anticipated Discharge Date: 05/25/18 Discharge Date: Expected LOS: 3 Initial Reviewer: [email or web address] Initial Review Date: 05/22/2018 Generated: 05/29/18 1:11 pm Comments DCP- Discharge Planning Updated by [email or web address]: Penelope Aguilar on 05/29/18 11:[address] Patient Name: DANITZA MELENDREZ Encounter No: [id number] : 1990 Primary Insurance: [employer] Anticipated DC Date: 05-25-2018 Planned Disposition: Home External Planned Provider: : DCP follow-up note: Patient and family in agreement with discharge plan. No changes to plan. Case management will follow and assist as needed. Penelope Aguilar DCP- Discharge Planning Updated by [email or web address]: Penelope Aguilar on 05/22/18 3:[address] Patient Name: DANITZA MELENDREZ Admission Status: ER Admission Date: 05-22-2018 : 1990 Admission Diagnosis: Attending: KATERYNA DUMONT Current LOS: 1 Anticipated DC Date: 05-25-2018 Planned Disposition: Home Primary Insurance: [employer] EMP Discharge Planning Comments: CM met with patient to complete initial dc planning assessment. CM educated patient on the CM role and verbal consent given by patient to complete assessment. Patient lives at home with his mother and reports he is independent in his care. At discharge patient plans to return home with his mother and feels this is a safe discharge. CM discussed availability of home health, rehab services, and medical equipment. Patient denied known discharge needs at this time. CM will continue to follow and will assist as needed with dc plans/needs. Label Printing Machinist: Karol Osorio RN, [facility] DCPIA - Discharge Planning Initial Assessment Updated by [email or web address]: Karol Osorio on 05/22/18 9:49 am * Is the patient Alert and Oriented? Yes * PCP Dr. Almaguer * [facility] * Preadmission Environment Home with Family * ADLs Independent * Equipment None * List name and contact numbers for known caregivers / representatives who currently or will assist patient after discharge: Geeta Augustine [facility] [phone] * Verbal permission to speak to the caregivers and representatives has been obtained from the patient. Yes * Community resources currently utilized None * Additional services required to return to the preadmission environment? No * Can the patient safely return to the preadmission environment? Yes * Has this patient been hospitalized within the prior 30 days at any hospital? Yes Last DP export: 05/22/18 3:36 p Patient Name: DANITZA MELENDREZ Page [id number] at 1211 All edits/amendments must be made on the electronic document DICTATION DATE: 05/29/18 1211 MALT LIQU[employer] SALES SUPERVISOR: DELORES 05/29/18 1211 RPT#: [id number] DC DATE: STATUS: ADM IN [facility] [address] [place] [address] END OF REPORT
--- NOTE | 2018-05-29 12:15 | NUR ---
PT LYING IN BED WITH MOM AT BEDSIDE, ADVISED PT HAS DC ORDERS ON BOARD, PT AND MOTHER REQUESTED REPEAT KUB BEFORE DC. ORDERED KUB PER APN. Alberto TAVERAS, CONTINUE WITH PLAN OF CARE
[2018-05-29 12:45] VITALS: BP 171/65
--- NOTE | 2018-05-29 14:55 | NUR ---
PT D/C BEING HELD UNTIL TOMORROW, PT SCOOTER CAME BACK SHOWING ILEUS, SPOKE TO WOOD COATER AND ADVISED TO HAVE PT STAY TONIGHT. SPOKE WITH PT AND GAVE OPTION TO STAY OR GO, PT STATED HE WILL STAY TONIGHT, IV ALREADY DC'D, PT HAS PO MEDS AND IM MEDS. CONTINUE WITH PLAN OF CARE
--- NOTE | 2018-05-29 14:59 | MORECARE ---
CASE MANAGEMENT DISCHARGE SUMMARY PATIENT: DANITZA MELENDREZ IV UNIT: [id number] ADM DATE: 05/22/18 AGE: 27 : [birth year] SEX: M ROOM/BED: D.2219 AUTHOR: ADRIANE QUAN PHYSICIAN: REFERRING PHYSICIAN: KATERYNA DUMONT MD DATE OF SERVICE: 05/29/18 Discharge Plan Patient Name: DANITZA MELENDREZ Facility: [facility]:[place] : 1990 Planned Disposition: Home Anticipated Discharge Date: 05/25/18 Discharge Date: Expected LOS: 3 Initial Reviewer: [email or web address] Initial Review Date: 05/22/2018 Generated: 05/29/18 3:59 pm Comments DCP- Discharge Planning Updated by [email or web address]: Penelope Aguilar on 05/29/18 1:[address] discharge orders are on hold because he has a ileus. DCP- Discharge Planning Updated by [email or web address]: Penelope Aguilar on 05/29/18 11:[address] Patient Name: DANITZA MELENDREZ Encounter No: [id number] : 1990 Primary Insurance: [employer] Anticipated DC Date: 05-25-2018 Planned Disposition: Home External Planned Provider: : DCP follow-up note: Patient and family in agreement with discharge plan. No changes to plan. Case management will follow and assist as needed. Penelope Aguilar DCP- Discharge Planning Updated by [email or web address]: Penelope Aguilar on 05/22/18 3:[address] Patient Name: DANITZA MELENDREZ Admission Status: ER Admission Date: 05-22-2018 : 1990 Admission Diagnosis: Attending: KATERYNA DUMONT Current LOS: 1 Anticipated DC Date: 05-25-2018 Planned Disposition: Home Primary Insurance: [employer] EMP Discharge Planning Comments: CM met with patient to complete initial dc planning assessment. CM educated patient on the CM role and verbal consent given by patient to complete assessment. Patient lives at home with his mother and reports he is independent in his care. At discharge patient plans to return home with his mother and feels this is a safe discharge. CM discussed availability of home health, rehab services, and medical equipment. Patient denied known discharge needs at this time. CM will continue to follow and will assist as needed with dc plans/needs. Exchange Architect: Karol Osorio RN, [facility] DCPIA - Discharge Planning Initial Assessment Updated by [email or web address]: Karol Osorio on 05/22/18 9:49 am * Is the patient Alert and Oriented? Yes * PCP Dr. Almaguer * [facility] * Preadmission Environment Home with Family * ADLs Independent * Equipment None * List name and contact numbers for known caregivers / representatives who currently or will assist patient after discharge: Geeta Fournier [facility] [phone] * Verbal permission to speak to the caregivers and representatives has been obtained from the patient. Yes * Community resources currently utilized None * Additional services required to return to the preadmission environment? No * Can the patient safely return to the preadmission environment? Yes * Has this patient been hospitalized within the prior 30 days at any hospital? Yes Last DP export: 05/29/18 11:11 am Patient Name: DANITZA MELENDREZ Page [phone] at 1459 All edits/amendments must be made on the electronic document DICTATION DATE: 05/29/181457 SCHOOL OPERATIONS MANAGER: DELORES 05/29/181457 RPT#: [id number] DC DATE: STATUS: ADM IN [facility] [address] [place] [address] END OF REPORT
--- NOTE | 2018-05-29 19:29 | NUR ---
I have reviewed this patient and I concur with the Shift Assessment completed by the Licensed Practical Nurse today this shift.
--- NOTE | 2018-05-29 20:00 | NUR ---
ASSESSMENT PER FLOWSHEET. PT HAS NO IV ACCESS WAS SUPPOSE TO GO HOME TODAY BUT DECIDED TO GO IN AM. UP AD WILY . AMBULATING IN HALLWAY. DENIES NEEDS.
--- NOTE | 2018-05-29 21:30 | NUR ---
MEDS GIVEN PER MAR.
--- NOTE | 2018-05-29 23:54 | NUR ---
RESTING QUIETLY DENIES NEEDS.
[2018-05-30 00:14] VITALS: BP 102/52
[2018-05-30 06:12] VITALS: BP 105/57
[2018-05-30 06:14] LABS: BASOPHILS 0.4 % (0-2); EOSINOPHILS 3.2 % (0-7); HEMATOCRIT 34.1 % (42.0-54.0); HEMOGLOBIN 11.4 g/dL (13.5-17.5); IMMATURE GRANULOCYTES 0.4 % (0-5); LYMPHOCYTES 39.3 % (15-50); MCHC 33.4 g/dL (31.0-37.0); MCV 89.7 fL (80.0-100.0); MEAN PLATELET VOLUME 10.3 fL (7.4-10.4); MONOCYTES 11.2 % (2-11); NEUTROPHILS 45.5 % (40-80); PLATELET COUNT 268 10x3/uL (130-400); RDW 12.6 % (11.5-14.5); WBC 5.4 10x3/uL (4.8-10.8)
[2018-05-30 06:20] LABS: ALBUMIN 3.1 g/dL (3.4-5.0); ANION GAP 12.2 mmol/L (8-16); BILIRUBIN - TOTAL 0.25 mg/dL (0.2-1.3); CALCIUM 8.9 mg/dL (8.5-10.1); CARBON DIOXIDE 28.6 mmol/L (21.0-32.0); CREATININE - SERUM 1.3 mg/dL (0.6-1.3); POTASSIUM - SERUM 3.8 mmol/L (3.5-5.1); PROTEIN - SERUM 6.2 g/dL (6.4-8.2)
[2018-05-30 09:51] VITALS: BP 130/86
--- NOTE | 2018-05-30 12:31 | NUR ---
NUTRITION F/U CHART REVIEWED, PT VISIT. PT REPORTS TOLERATING SOFT BLAND DIET. PT REPORTS MODEST AMT INTAKE. WILL CONTINUE TO PROVIDE DIET, MONITOR PO INTAKE. RD FOLLOWING
[2018-05-30 14:03] VITALS: BP 114/66
--- NOTE | 2018-05-30 15:22 | MORECARE ---
CASE MANAGEMENT DISCHARGE SUMMARY PATIENT: DANITZA MELENDREZ IV UNIT: [id number] ADM DATE: 05/22/18 AGE: 27 : [birth year] SEX: M ROOM/BED: D.2219 AUTHOR: ADRIANE QUAN PHYSICIAN: REFERRING PHYSICIAN: KATERYNA DUMONT MD DATE OF SERVICE: 05/30/18 Discharge Plan Patient Name: DANITZA MELENDREZ Facility: [facility]:[place] : 1990 Planned Disposition: Home Anticipated Discharge Date: 05/25/18 Discharge Date: Expected LOS: 3 Initial Reviewer: [email or web address] Initial Review Date: 05/22/2018 Generated: 05/30/18 4:22 pm Comments DCP- Discharge Planning Updated by [email or web address]: Penelope Aguilar on 05/30/18 2:[address] patient to be discharged home today DCP- Discharge Planning Updated by [email or web address]: Penelope Aguilar on 05/29/18 1:[address] discharge orders are on hold because he has a ileus. DCP- Discharge Planning Updated by [email or web address]: Penelope Aguilar on 05/29/18 11:[address] Patient Name: DANITZA MELENDREZ Encounter No: [id number] : 1990 Primary Insurance: [employer] EMP Anticipated DC Date: 05-25-2018 Planned Disposition: Home External Planned Provider: : DCP follow-up note: Patient and family in agreement with discharge plan. No changes to plan. Case management will follow and assist as needed. Penelope Aguilar DCP- Discharge Planning Updated by [email or web address]: Penelope Aguilar on 05/22/18 3:[address] Patient Name: DANITZA MELENDREZ Admission Status: ER Admission Date: 05-22-2018 : 1990 Admission Diagnosis: Attending: KATERYNA DUMONT Current LOS: 1 Anticipated DC Date: 05-25-2018 Planned Disposition: Home Primary Insurance: [employer] [place] [employer] EMP Discharge Planning Comments: CM met with patient to complete initial dc planning assessment. CM educated patient on the CM role and verbal consent given by patient to complete assessment. Patient lives at home with his mother and reports he is independent in his care. At discharge patient plans to return home with his mother and feels this is a safe discharge. CM discussed availability of home health, rehab services, and medical equipment. Patient denied known discharge needs at this time. CM will continue to follow and will assist as needed with dc plans/needs. Studio Artist: Karol Osorio RN, [facility] DCPIA - Discharge Planning Initial Assessment Updated by [email or web address]: Karol Osorio on 05/22/18 9:49 am * Is the patient Alert and Oriented? Yes * PCP Dr. Almaguer * [facility] * Preadmission Environment Home with Family * ADLs Independent * Equipment None * List name and contact numbers for known caregivers / representatives who currently or will assist patient after discharge: Geeta rodgers - [phone] * Verbal permission to speak to the caregivers and representatives has been obtained from the patient. Yes * Community resources currently utilized None * Additional services required to return to the preadmission environment? No * Can the patient safely return to the preadmission environment? Yes * Has this patient been hospitalized within the prior 30 days at any hospital? Yes Last DP export: 05/29/18 1:59 pm Patient Name: DANITZA MELENDREZ Page [phone] at 1522 All edits/amendments must be made on the electronic document DICTATION DATE: 05/30/181521 BOAT JOINER: DELORES 05/30/181521 RPT#: [id number] DC DATE: STATUS: ADM IN [facility] [address] [place] [address] END OF REPORT
--- NOTE | 2018-05-30 17:40 | NUR ---
I have reviewed this patient and I concur with the Shift Assessment completed by the Licensed Practical Nurse today this shift.
[2018-05-30 17:59] VITALS: BP 119/67
== END 2018-05-30 18:30 | disposition home or self-care (01) | DRG 392 ==
LOC: D.ER 03:52 → D.MS 07:56 → D.EDHOLD 07:56 → D.MS 10:09
PROVIDERS: Emergency Medicine; Family Medicine; ADMIT Internal Medicine Nephrology; ATTEND Internal Medicine Nephrology
PROC: 0DCP7ZZ Extirpation of Matter from Rectum, Via Natural or Artificial Opening (ICD-10-PCS; principal; 2018-05-22)
DX: K59.2 Neurogenic bowel, not elsewhere classified (principal); K56.699 Other intestinal obstruction unspecified as to partial versus complete obstruction; N17.9 Acute kidney failure, unspecified; K56.7 Ileus, unspecified; K56.41 Fecal impaction

== ENCOUNTER 2018-07-09 20:57 | Inpatient (IN) | payer BC ==
[~2018-07-09 20:57] MED LIST changes: +AMERICAINE HEMO30 GM TOPICAL; +DULCOLAX10 MG/SUPP RC
[2018-07-09] MEDS ORDERED: PHENERGAN25 M1 (21:16)
[2018-07-09 21:50] LABS: BASOPHILS 0.6 % (0-2); EOSINOPHILS 3.4 % (0-7); HEMATOCRIT 38.7 % (42.0-54.0); HEMOGLOBIN 13.4 g/dL (13.5-17.5); IMMATURE GRANULOCYTES 0.3 % (0-5); LYMPHOCYTES 47.2 % (15-50); MCH 30.9 pg (26.0-34.0); MCHC 34.6 g/dL (31.0-37.0); MCV 89.2 fL (80.0-100.0); MEAN PLATELET VOLUME 10.1 fL (7.4-10.4); MONOCYTES 9.2 % (2-11); NEUTROPHILS 39.3 % (40-80); PLATELET COUNT 262 10x3/uL (130-400); RBC 4.34 10x6/uL (4.20-6.10); WBC 6.4 10x3/uL (4.8-10.8)
[2018-07-09 22:11] LABS: APPEARANCE CLEAR (CLEAR); COLOR YELLOW (YELLOW)
[2018-07-09 22:12] LABS: BILIRUBIN NEGATIVE (NEGATIVE); GLUCOSE NEGATIVE (NEGATIVE); KETONE NEGATIVE (NEGATIVE); NITRITE NEGATIVE (NEGATIVE); PROTEIN NEGATIVE (NEGATIVE); SPECIFIC GRAVITY 1.015 (1.005-1.020); UROBILINOGEN NORMAL (NORMAL)
[2018-07-09 22:14] LABS: ALBUMIN 3.6 g/dL (3.4-5.0); ANION GAP 11.3 mmol/L (8-16); BILIRUBIN - TOTAL 0.25 mg/dL (0.2-1.3); CALCIUM 8.6 mg/dL (8.5-10.1); CARBON DIOXIDE 29.9 mmol/L (21.0-32.0); CREATININE - SERUM 1.7 mg/dL (0.6-1.3); POTASSIUM - SERUM 4.2 mmol/L (3.5-5.1); PROTEIN - SERUM 7.2 g/dL (6.4-8.2); TROPONIN-I 0.036 ng/mL (0.000-0.060)
[2018-07-10 05:07] VITALS: BP 120/63; BMI 27.3
[2018-07-10 09:34] VITALS: BP 117/74
[2018-07-10 10:58] LABS: BASOPHILS 0.2 % (0-2); EOSINOPHILS 1.9 % (0-7); HEMATOCRIT 37.4 % (42.0-54.0); HEMOGLOBIN 12.7 g/dL (13.5-17.5); IMMATURE GRANULOCYTES 0.3 % (0-5); LYMPHOCYTES 26.2 % (15-50); MCH 30.5 pg (26.0-34.0); MCV 89.9 fL (80.0-100.0); MEAN PLATELET VOLUME 10.3 fL (7.4-10.4); MONOCYTES 7.4 % (2-11); PLATELET COUNT 243 10x3/uL (130-400); RBC 4.16 10x6/uL (4.20-6.10); RDW 13.1 % (11.5-14.5); WBC 6.3 10x3/uL (4.8-10.8)
[2018-07-10 11:28] LABS: ALBUMIN 3.1 g/dL (3.4-5.0); ANION GAP 8.2 mmol/L (8-16); BILIRUBIN - TOTAL 0.67 mg/dL (0.2-1.3); CALCIUM 8.1 mg/dL (8.5-10.1); CARBON DIOXIDE 31.2 mmol/L (21.0-32.0); CREATININE - SERUM 1.4 mg/dL (0.6-1.3); POTASSIUM - SERUM 4.4 mmol/L (3.5-5.1); PROTEIN - SERUM 6.3 g/dL (6.4-8.2)
[2018-07-10 13:38] VITALS: BP 179/92
[2018-07-10 13:51] VITALS: BMI 27.3
[2018-07-10 18:14] VITALS: BP 111/50
[2018-07-10 20:00] VITALS: BP 123/60
[2018-07-11 04:00] VITALS: BP 132/68
[2018-07-11 06:49] LABS: BASOPHILS 0.4 % (0-2); EOSINOPHILS 2.2 % (0-7); HEMATOCRIT 36.3 % (42.0-54.0); HEMOGLOBIN 12.4 g/dL (13.5-17.5); IMMATURE GRANULOCYTES 0.2 % (0-5); LYMPHOCYTES 19.6 % (15-50); MCH 30.8 pg (26.0-34.0); MCHC 34.2 g/dL (31.0-37.0); MCV 90.1 fL (80.0-100.0); MEAN PLATELET VOLUME 10.6 fL (7.4-10.4); MONOCYTES 15.2 % (2-11); NEUTROPHILS 62.4 % (40-80); PLATELET COUNT 242 10x3/uL (130-400); RBC 4.03 10x6/uL (4.20-6.10); RDW 12.9 % (11.5-14.5); WBC 5.5 10x3/uL (4.8-10.8)
[2018-07-11 07:17] LABS: ALBUMIN 2.9 g/dL (3.4-5.0); ALKALINE PHOSPHATASE 88 U/L (46-116); ALT (SGPT) 58 U/L (10-68); CALC OSMOLALITY 279 mosm/kg (275-300); CALCIUM 8.1 mg/dL (8.5-10.1); CARBON DIOXIDE 27.9 mmol/L (21.0-32.0); CHLORIDE - SERUM 107 mmol/L (98-107); CREATININE - SERUM 1.2 mg/dL (0.6-1.3); GLUCOSE 103 mg/dL (74-106); POTASSIUM - SERUM 3.9 mmol/L (3.5-5.1); PROTEIN - SERUM 6.1 g/dL (6.4-8.2); SODIUM 140 mmol/L (136-145); UREA NITROGEN 14 mg/dL (7-18); eGFR NON AFRICAN AMERICAN 78 mL/min (90-120)
[2018-07-11 09:37] VITALS: BP 112/59
[2018-07-11 14:03] VITALS: BP 128/52
[2018-07-11 17:07] VITALS: BP 107/71
[2018-07-11 20:00] VITALS: BP 137/63
[2018-07-12 04:00] VITALS: BP 136/63
[2018-07-12 05:35] LABS: BASOPHILS 0.2 % (0-2); EOSINOPHILS 1.1 % (0-7); HEMATOCRIT 37.1 % (42.0-54.0); HEMOGLOBIN 12.6 g/dL (13.5-17.5); IMMATURE GRANULOCYTES 0.4 % (0-5); LYMPHOCYTES 26.3 % (15-50); MCH 30.5 pg (26.0-34.0); MCV 89.8 fL (80.0-100.0); MEAN PLATELET VOLUME 10.5 fL (7.4-10.4); MONOCYTES 9.1 % (2-11); NEUTROPHILS 62.9 % (40-80); PLATELET COUNT 248 10x3/uL (130-400); RBC 4.13 10x6/uL (4.20-6.10); RDW 12.7 % (11.5-14.5); WBC 5.6 10x3/uL (4.8-10.8)
[2018-07-12 06:06] LABS: ALBUMIN 3.1 g/dL (3.4-5.0); ANION GAP 11.3 mmol/L (8-16); BILIRUBIN - TOTAL 0.63 mg/dL (0.2-1.3); CALCIUM 8.7 mg/dL (8.5-10.1); CARBON DIOXIDE 27.8 mmol/L (21.0-32.0); CREATININE - SERUM 1.3 mg/dL (0.6-1.3); POTASSIUM - SERUM 4.1 mmol/L (3.5-5.1); PROTEIN - SERUM 6.5 g/dL (6.4-8.2)
[2018-07-12 08:35] VITALS: BP 108/69
[2018-07-12] MEDS ORDERED: CHRONULAC30 ML PO (11:22)
[2018-07-12] MEDS ORDERED: COLACE100 MG PO (11:22)
[2018-07-12] MEDS ORDERED: MIRALAX17 GM PO (11:23)
[2018-07-12 11:45] VITALS: BP 108/62
[2018-07-12 12:37] VITALS: BP 110/66
--- NOTE | 2018-07-12 13:14 | MORECARE ---
CASE MANAGEMENT DISCHARGE SUMMARY PATIENT: DANITZA MELENDREZ IV UNIT: [id number] ADM DATE: 07/10/18 AGE: 27 : [birth year] SEX: M ROOM/BED: D.2237 AUTHOR: ADRIANE QUAN PHYSICIAN: REFERRING PHYSICIAN: KATERYNA DUMONT MD DATE OF SERVICE: 07/12/18 Discharge Plan Patient Name: DANITZA MELENDREZ [facility] [facility] 1990 Planned Disposition: Home Anticipated Discharge Date: Discharge Date: Expected LOS: Initial Reviewer: [email or web address] Initial Review Date: 07/10/2018 Generated: 07/12/18 2:14 pm DCPIA - Discharge Planning Initial Assessment Updated by [email or web address]: Suzie Davis on 07/12/18 1:14 pm * Is the patient Alert and Oriented? Yes * How many steps to enter\exit or inside your home? 0/0 * PCP Dr. Almaguer * Pharmacy [facility] on [address] * Preadmission Environment Home with Family * ADLs Independent * Equipment None * List name and contact numbers for known caregivers / representatives who currently or will assist patient after discharge: Geeta Augustine - mother - [phone] Dalia Augustine - step father - [phone] * Verbal permission to speak to the caregivers and representatives has been obtained from the patient. Yes * Community resources currently utilized None * Additional services required to return to the preadmission environment? No * Can the patient safely return to the preadmission environment? Yes * Has this patient been hospitalized within the prior 30 days at any hospital? No Patient Name: DANITZA MELENDREZ Page [phone] at 1314 All edits/amendments must be made on the electronic document DICTATION DATE: 07/12/181312 CITRUS FRUIT PACKER: DELORES 07/12/181312 RPT#: [id number] DC DATE: STATUS: ADM IN [facility] [address] [place] [address] END OF REPORT
--- NOTE | 2018-07-12 13:22 | MORECARE ---
CASE MANAGEMENT DISCHARGE SUMMARY PATIENT: DANITZA MELENDREZ IV UNIT: [id number] ADM DATE: 07/10/18 AGE: 27 : [birth year] SEX: M ROOM/BED: D.2237 AUTHOR: KADEEM,DOC PHYSICIAN: REFERRING PHYSICIAN: KATERYNA DUMONT MD DATE OF SERVICE: 07/12/18 Discharge Plan Patient Name: DANITZA MELENDREZ Facility: [facility]:[place] : 1990 Planned Disposition: Home Anticipated Discharge Date: Discharge Date: Expected LOS: Initial Reviewer: [email or web address] Initial Review Date: 07/10/2018 Generated: 07/12/18 2:21 pm Comments DCP- Discharge Planning Updated by [email or web address]: Suzie Davis on 07/12/18 12:[address] Patient Name: DANITZA MELENDREZ Admission Status: ER Accout number: [id number] Admission Date: 07-10-2018 : 1990 Admission Diagnosis: Attending: KATERYNA DUMONT Current LOS: 2 Anticipated DC Date: Planned Disposition: Home Primary Insurance: [employer] [facility] Discharge Planning Comments: CM met with patient to complete initial dc planning assessment. CM educated patient on the CM role and verbal consent given by patient to complete assessment. Patient lives at home with his mother. His step father is here and will take him home at discharge. At discharge patient plans to return and feels this is a safe discharge. CM discussed availability of home health, rehab services, and medical equipment. Patient denied known discharge needs at this time. CM will continue to follow and will assist as needed with dc plans/needs. Asset Availability Leader: Suzie Davis DCPIA - Discharge Planning Initial Assessment Updated by [email or web address]: Suzie Davis on 07/12/18 1:14 pm * Is the patient Alert and Oriented? Yes * How many steps to enter\exit or inside your home? 0/0 * PCP Dr. Almaguer * Pharmacy [facility] on [address] * Preadmission Environment Home with Family * ADLs Independent * Equipment None * List name and contact numbers for known caregivers / representatives who currently or will assist patient after discharge: Geeta Augustine - mother - [phone] Dalia Augustine - step father - [phone] * Verbal permission to speak to the caregivers and representatives has been obtained from the patient. Yes * Community resources currently utilized None * Additional services required to return to the preadmission environment? No * Can the patient safely return to the preadmission environment? Yes * Has this patient been hospitalized within the prior 30 days at any hospital? No Last DP export: 07/12/18 12:14 p Patient Name: DANITZA MELENDREZ Page [phone] at 1322 All edits/amendments must be made on the electronic document DICTATION DATE: 07/12/18 1321 LITHOGRAPHER APPRENTICE: DELORES 07/12/18 1321 RPT#: [id number] [place] DATE: STATUS: ADM IN [facility] [address] [place] [address] END OF REPORT
--- NOTE | 2018-07-12 16:42 | OP ---
PATIENT NAME: ABDULKADIR MELENDREZ IV MEDICAL RECORD: [id number] :[birth year] LOCATION:D.MS [id number] ADMISSION DATE:07/10/18 SURGEON: ABDULKADIR SANCHEZ MD DATE OF OPERATION: 07/12/2018 PREOPERATIVE DIAGNOSIS: Recurrent fecal impaction. POSTOPERATIVE DIAGNOSIS: Recurrent fecal impaction. PROCEDURE: Mechanical fecal disimpaction. SURGEON: Abdulkadir Sanchez MD ANIME ARTIST: None. BLOOD LOSS: Zero. ANESTHESIA: General. COMPLICATIONS: None. The risks, possible complications, and alternatives to the procedure were explained to the patient. He elects to proceed. OPERATIVE COURSE: The patient was conveyed to the operating room electively on 07/12/2018. General anesthesia was induced by the anesthesia staff. The patient was placed in the lithotomy position. While the cath lab tech was applying countertraction to the abdomen, I inserted my gloved fingers into the anus. I was able to disimpact the patient. I also irrigated with normal saline up through the anus and into the rectum. Further fecal material was disimpacted. The patient was then extubated and conveyed to the postanesthesia care unit. At no time was there any apparent injury to the anal sphincters. TRANSINT:[id number] Voice Confirmation ID: [id number] DOCUMENT ID: [id number] ABDULKADIR SANCHEZ MD at 1642 CC: [id number] DICTATION DATE: 07/12/18 1205 PLATFORM MILL SUPERVISOR: 07/12/18 1251 ADM IN [place] [id number] [place] [address]
[2018-07-12 17:47] VITALS: BP 123/54
== END 2018-07-12 19:52 | disposition home or self-care (01) | DRG 389 ==
LOC: D.ER 20:57 → D.MS 07-10 01:07
PROVIDERS: Family Medicine; Surgery; ADMIT Internal Medicine Nephrology
PROC: 0WJP7ZZ Inspection of Gastrointestinal Tract, Via Natural or Artificial Opening Approach (ICD-10-PCS; principal; 2018-07-12 11:30)
DX: K56.41 Fecal impaction (principal); N17.9 Acute kidney failure, unspecified; E86.0 Dehydration

== ENCOUNTER → 2018-07-27 07:16 | Outpatient (CLI) | payer BC ==
[2018-07-10 13:51] VITALS: BMI 27.3
[~2018-07-27 07:16] MED LIST changes: +PHENERGAN25 M1
== END | disposition home or self-care (01) ==
LOC: D.MRI 07:16
PROVIDERS: ATTEND Family Medicine
DX: R22.1 Localized swelling, mass and lump, neck (principal)

== ENCOUNTER 2018-09-05 09:01 | Emergency (ER) | payer BC ==
[~2018-09-05] VITALS: Ht 175.3 cm; Wt 84.1 kg
[2018-09-05 09:10] VITALS: Ht 175.3 cm; Wt 84.1 kg
[2018-09-05 09:35] LABS: BASOPHILS 0.6 % (0-2); EOSINOPHILS 5.2 % (0-7); HEMATOCRIT 42.6 % (42.0-54.0); LYMPHOCYTES 40.3 % (15-50); MCH 31.1 pg (26.0-34.0); MCHC 35.2 g/dL (31.0-37.0); MCV 88.2 fL (80.0-100.0); MEAN PLATELET VOLUME 10.7 fL (7.4-10.4); MONOCYTES 14.1 % (2-11); NEUTROPHILS 39.8 % (40-80); PLATELET COUNT 254 10x3/uL (130-400); RBC 4.83 10x6/uL (4.20-6.10); RDW 12.5 % (11.5-14.5); WBC 3.6 10x3/uL (4.8-10.8)
[2018-09-05 09:51] LABS: ALBUMIN 3.8 g/dL (3.4-5.0); ALKALINE PHOSPHATASE 108 U/L (46-116); ALT (SGPT) 186 U/L (10-68); BILIRUBIN - TOTAL 0.77 mg/dL (0.2-1.3); CALC OSMOLALITY 275 mosm/kg (275-300); CALCIUM 9.3 mg/dL (8.5-10.1); CHLORIDE - SERUM 102 mmol/L (98-107); CREATININE - SERUM 1.3 mg/dL (0.6-1.3); GLUCOSE 94 mg/dL (74-106); POTASSIUM - SERUM 4.2 mmol/L (3.5-5.1); PROTEIN - SERUM 7.3 g/dL (6.4-8.2); SODIUM 137 mmol/L (136-145); UREA NITROGEN 17 mg/dL (7-18); eGFR NON AFRICAN AMERICAN 71 mL/min (90-120)
[2018-09-05 09:55] LABS: AMYLASE - SERUM 103 U/L (25-115); LIPASE 400 U/L (73-393)
[2018-09-05 09:56] LABS: TROPONIN-I < 0.017 ng/mL (0.000-0.060)
[2018-09-05 10:30] LABS: APPEARANCE CLEAR (CLEAR); BILIRUBIN NEGATIVE (NEGATIVE); COLOR YELLOW (YELLOW); GLUCOSE NEGATIVE (NEGATIVE); KETONE NEGATIVE (NEGATIVE); NITRITE NEGATIVE (NEGATIVE); PROTEIN NEGATIVE (NEGATIVE); UROBILINOGEN NORMAL (NORMAL)
[2018-09-05] MEDS ORDERED: COLACE100 MG PO (11:57)
[2018-09-05 12:33] VITALS: BP 109/70
== END 2018-09-05 12:35 | disposition home or self-care (01) ==
LOC: D.ER 09:01
PROVIDERS: Family Medicine
DX: K59.00 Constipation, unspecified (principal); R94.5 Abnormal results of liver function studies

== ENCOUNTER 2019-03-23 11:49 | Emergency (ER) | payer SELFPAY ==
[~2019-03-23] VITALS: Ht 175.3 cm; Wt 86.4 kg
[2019-03-23 12:07] VITALS: Ht 175.3 cm; Wt 86.4 kg
[2019-03-23 12:32] LABS: APPEARANCE CLEAR (CLEAR); BILIRUBIN NEGATIVE (NEGATIVE); COLOR STRAW (YELLOW); GLUCOSE NEGATIVE (NEGATIVE); KETONE NEGATIVE (NEGATIVE); NITRITE NEGATIVE (NEGATIVE); PROTEIN NEGATIVE (NEGATIVE); UROBILINOGEN NORMAL (NORMAL)
[2019-03-23 12:35] LABS: BASOPHILS 0.2 % (0-2); EOSINOPHILS 0.9 % (0-7); HEMATOCRIT 37.1 % (42.0-54.0); HEMOGLOBIN 12.9 g/dL (13.5-17.5); IMMATURE GRANULOCYTES 0.2 % (0-5); LYMPHOCYTES 22.8 % (15-50); MCHC 34.8 g/dL (31.0-37.0); MCV 89.2 fL (80.0-100.0); MEAN PLATELET VOLUME 10.4 fL (7.4-10.4); MONOCYTES 7.2 % (2-11); NEUTROPHILS 68.7 % (40-80); PLATELET COUNT 248 10x3/uL (130-400); RBC 4.16 10x6/uL (4.20-6.10); RDW 12.4 % (11.5-14.5); WBC 6.4 10x3/uL (4.8-10.8)
[2019-03-23 12:46] LABS: CALC OSMOLALITY 281 mosm/kg (275-300); CALCIUM 9.4 mg/dL (8.5-10.1); CARBON DIOXIDE 26.3 mmol/L (21.0-32.0); CHLORIDE - SERUM 104 mmol/L (98-107); CREATININE - SERUM 1.2 mg/dL (0.6-1.3); GLUCOSE 115 mg/dL (74-106); POTASSIUM - SERUM 3.8 mmol/L (3.5-5.1); SODIUM 140 mmol/L (136-145); UREA NITROGEN 18 mg/dL (7-18); eGFR NON AFRICAN AMERICAN 78 mL/min (90-120)
[2019-03-23 12:53] LABS: ALBUMIN 3.6 g/dL (3.4-5.0); ALKALINE PHOSPHATASE 87 U/L (46-116); ALT (SGPT) 60 U/L (10-68); AMYLASE - SERUM 74 U/L (25-115); BILIRUBIN - TOTAL 0.45 mg/dL (0.2-1.3); LIPASE 114 U/L (73-393); PROTEIN - SERUM 7.1 g/dL (6.4-8.2)
[2019-03-23 13:55] LABS: UDS - AMPHET NEGATIVE QUAL (NEGATIVE); UDS - BARB NEGATIVE QUAL (NEGATIVE); UDS - BENZO NEGATIVE QUAL (NEGATIVE); UDS - COCAINE NEGATIVE QUAL (NEGATIVE); UDS - OPIATE NEGATIVE QUAL (NEGATIVE); UDS - PCP NEGATIVE QUAL (NEGATIVE); UDS - THC NEGATIVE QUAL (NEGATIVE)
[2019-03-23] MEDS ORDERED: TESSALON PERLE100 MG PO (14:26)
[2019-03-23] MEDS ORDERED: ZPAK PO (14:28)
[2019-03-23] MEDS ORDERED: PROBIOTIC1 EAC1 PO (14:28)
[2019-03-23 15:26] VITALS: BP 134/74
== END 2019-03-23 15:26 | disposition home or self-care (01) ==
LOC: D.ER 11:49
PROVIDERS: Emergency Medicine
DX: J40 Bronchitis, not specified as acute or chronic (principal); J32.9 Chronic sinusitis, unspecified; K21.9 Gastro-esophageal reflux disease without esophagitis; R11.2 Nausea with vomiting, unspecified; R19.7 Diarrhea, unspecified

== ENCOUNTER 2019-04-23 11:00 | Emergency (ER) | payer OTHER ==
[~2019-04-23] VITALS: Ht 175.3 cm; Wt 86.4 kg
[~2019-04-23 11:00] MED LIST changes: +PROBIOTIC1 EAC1 PO; +TESSALON PERLE100 MG PO; +ZPAK PO
[2019-04-23 11:05] VITALS: Ht 175.3 cm; Wt 86.4 kg
[2019-04-23] MEDS ORDERED: CIPRO500 MG PO (11:11)
[2019-04-23] MEDS ORDERED: FLAGYL500 MG PO (11:11)
[2019-04-23 11:34] LABS: BASOPHILS 0.4 % (0-2); EOSINOPHILS 1.5 % (0-7); HEMATOCRIT 40.1 % (42.0-54.0); IMMATURE GRANULOCYTES 0.3 % (0-5); LYMPHOCYTES 18.7 % (15-50); MCH 31.2 pg (26.0-34.0); MCHC 34.9 g/dL (31.0-37.0); MCV 89.3 fL (80.0-100.0); MEAN PLATELET VOLUME 10.8 fL (7.4-10.4); MONOCYTES 8.5 % (2-11); NEUTROPHILS 70.6 % (40-80); PLATELET COUNT 245 10x3/uL (130-400); RBC 4.49 10x6/uL (4.20-6.10); RDW 12.7 % (11.5-14.5); WBC 7.5 10x3/uL (4.8-10.8)
[2019-04-23 11:47] LABS: CALC OSMOLALITY 283 mosm/kg (275-300); CALCIUM 9.8 mg/dL (8.5-10.1); CARBON DIOXIDE 27.7 mmol/L (21.0-32.0); CHLORIDE - SERUM 103 mmol/L (98-107); CREATININE - SERUM 1.5 mg/dL (0.6-1.3); GLUCOSE 114 mg/dL (74-106); POTASSIUM - SERUM 4.5 mmol/L (3.5-5.1); SODIUM 139 mmol/L (136-145); UREA NITROGEN 27 mg/dL (7-18); eGFR NON AFRICAN AMERICAN 60 mL/min (90-120)
[2019-04-23 11:55] LABS: ALKALINE PHOSPHATASE 103 U/L (30-120); ALT (SGPT) 62 U/L (10-68); AMYLASE - SERUM 79 U/L (25-115); BILIRUBIN - TOTAL 0.39 mg/dL (0.2-1.3); LIPASE 90 U/L (73-393); PROTEIN - SERUM 7.5 g/dL (6.4-8.2)
[2019-04-23 11:56] LABS: TROPONIN-I < 0.017 ng/mL (0.000-0.060)
[2019-04-23 12:03] LABS: APPEARANCE CLEAR (CLEAR); BILIRUBIN NEGATIVE (NEGATIVE); COLOR YELLOW (YELLOW); GLUCOSE NEGATIVE (NEGATIVE); KETONE NEGATIVE (NEGATIVE); NITRITE NEGATIVE (NEGATIVE); PROTEIN NEGATIVE (NEGATIVE); SPECIFIC GRAVITY 1.015 (1.005-1.020); UROBILINOGEN NORMAL (NORMAL)
[2019-04-23 19:19] VITALS: BP 115/72
== END 2019-04-23 19:20 | disposition other institution (70) ==
LOC: D.ER 11:00
PROVIDERS: Family Medicine
DX: K56.609 Unspecified intestinal obstruction, unspecified as to partial versus complete obstruction (principal); K59.09 Other constipation; K56.2 Volvulus; J45.909 Unspecified asthma, uncomplicated; K21.9 Gastro-esophageal reflux disease without esophagitis

== ENCOUNTER 2019-08-10 19:58 | Emergency (ER) | payer OTHER ==
[~2019-08-10] VITALS: Ht 175.3 cm; Wt 72.7 kg
[~2019-08-10 19:58] MED LIST changes: +CIPRO500 MG PO; +FLAGYL500 MG PO
[2019-08-10 20:11] VITALS: BP 114/71; Ht 175.3 cm; Wt 72.7 kg
[2019-08-10] MEDS ORDERED: PEPCID40 MG PO (20:14)
[2019-08-10 20:43] LABS: BASOPHILS 0.3 % (0-2); EOSINOPHILS 3.8 % (0-7); HEMATOCRIT 36.7 % (42.0-54.0); HEMOGLOBIN 12.1 g/dL (13.5-17.5); IMMATURE GRANULOCYTES 0.2 % (0-5); LYMPHOCYTES 30.4 % (15-50); MCH 29.2 pg (26.0-34.0); MCV 88.4 fL (80.0-100.0); MEAN PLATELET VOLUME 9.5 fL (7.4-10.4); MONOCYTES 10.9 % (2-11); NEUTROPHILS 54.4 % (40-80); PLATELET COUNT 276 10x3/uL (130-400); RBC 4.15 10x6/uL (4.20-6.10); RDW 12.8 % (11.5-14.5); WBC 5.8 10x3/uL (4.8-10.8)
[2019-08-10 20:44] LABS: BILIRUBIN NEGATIVE (NEGATIVE); GLUCOSE NEGATIVE (NEGATIVE); KETONE NEGATIVE (NEGATIVE); NITRITE NEGATIVE (NEGATIVE); UROBILINOGEN NORMAL (NORMAL)
[2019-08-10 20:58] LABS: CALC OSMOLALITY 272 mosm/kg (275-300); CARBON DIOXIDE 26.3 mmol/L (21.0-32.0); CHLORIDE - SERUM 104 mmol/L (98-107); CREATININE - SERUM 1.3 mg/dL (0.6-1.3); GLUCOSE 99 mg/dL (74-106); POTASSIUM - SERUM 4.2 mmol/L (3.5-5.1); SODIUM 136 mmol/L (136-145); UREA NITROGEN 16 mg/dL (7-18); eGFR NON AFRICAN AMERICAN 71 mL/min (90-120)
[2019-08-10 21:07] LABS: ALBUMIN 3.4 g/dL (3.4-5.0); ALKALINE PHOSPHATASE 87 U/L (30-120); ALT (SGPT) 34 U/L (10-68); AMYLASE - SERUM 94 U/L (25-115); LIPASE 183 U/L (73-393); PROTEIN - SERUM 7.2 g/dL (6.4-8.2); TROPONIN-I < 0.017 ng/mL (0.000-0.060)
== END 2019-08-10 22:25 | disposition home or self-care (01) ==
LOC: D.ER 19:58
PROVIDERS: Surgery
DX: K59.39 Other megacolon (principal); K59.00 Constipation, unspecified; R10.9 Unspecified abdominal pain; J45.909 Unspecified asthma, uncomplicated; K21.9 Gastro-esophageal reflux disease without esophagitis; R11.2 Nausea with vomiting, unspecified

== ENCOUNTER 2020-08-04 08:58 | Inpatient (IN) | payer BC ==
[~2020-08-04] VITALS: Ht 175.3 cm; Wt 81.6 kg
[~2020-08-04 08:58] MED LIST changes: +PEPCID40 MG PO; -PHENERGAN25 M1
[2020-08-04 09:53] LABS: BASOPHILS 0.4 % (0-2); EOSINOPHILS 2.4 % (0-7); HEMATOCRIT 39.7 % (42.0-54.0); HEMOGLOBIN 13.9 g/dL (13.5-17.5); IMMATURE GRANULOCYTES 0.2 % (0-5); LYMPHOCYTE ABS# 1.53 10x3/uL (1.32-3.57); LYMPHOCYTES 27.8 % (15-50); MCH 30.9 pg (26.0-34.0); MCV 88.2 fL (80.0-100.0); MEAN PLATELET VOLUME 10.4 fL (7.4-10.4); MONOCYTES 8.9 % (2-11); NEUTROPHIL ABS# 3.33 10x3/uL (1.78-5.38); NEUTROPHILS 60.3 % (40-80); PLATELET COUNT 253 10x3/uL (130-400); RDW 12.5 % (11.5-14.5); WBC 5.5 10x3/uL (4.8-10.8)
[2020-08-04 10:00] LABS: CALC OSMOLALITY 281 mosm/kg (275-300); CALCIUM 9.5 mg/dL (8.5-10.1); CARBON DIOXIDE 28.4 mmol/L (21.0-32.0); CHLORIDE - SERUM 104 mmol/L (98-107); CREATININE - SERUM 1.4 mg/dL (0.6-1.3); GLUCOSE 113 mg/dL (74-106); POTASSIUM - SERUM 4.1 mmol/L (3.5-5.1); SODIUM 139 mmol/L (136-145); UREA NITROGEN 20 mg/dL (7-18); eGFR NON AFRICAN AMERICAN 65 mL/min (90-120)
[2020-08-04 10:09] LABS: ALBUMIN 3.8 g/dL (3.4-5.0); ALKALINE PHOSPHATASE 100 U/L (30-120); ALT (SGPT) 43 U/L (10-68); AMYLASE - SERUM 97 U/L (25-115); BILIRUBIN - TOTAL 0.88 mg/dL (0.2-1.3); LIPASE 127 U/L (73-393); PROTEIN - SERUM 7.5 g/dL (6.4-8.2); TROPONIN-I < 0.017 ng/mL (0.000-0.060)
[2020-08-04 10:37] LABS: BILIRUBIN NEGATIVE (NEGATIVE); KETONE NEGATIVE (NEGATIVE); NITRITE NEGATIVE (NEGATIVE); UROBILINOGEN NORMAL mg/dL (< 2)
[2020-08-04 13:42] VITALS: BP 128/81
[2020-08-04 14:28] VITALS: BP 104/61
--- NOTE | 2020-08-04 15:17 | NUR ---
REPORT TO ELOISE IBANEZ
--- NOTE | 2020-08-04 15:53 | NUR ---
REPORT GIVEN TO SOLE NAVAS AT THIS TIME, RN EXPLAINED ROOM IS NOT CLEANED, STATED I WOULD START HIS HOME MEDS FOR HER. RN STATES SHE WILL CALL WHEN RM IS CLEANED
[2020-08-04 16:05] VITALS: BP 114/62
--- NOTE | 2020-08-04 18:00 | NUR ---
TRANSPORTATION HAS BEEN CALLED TO TAKE PT TO FLOOR AT THIS TIME. STATES SHE WILL BE HERE IN FEW MINUTES
[2020-08-04 19:37] VITALS: BMI 26.6
[2020-08-04 23:34] VITALS: BP 132/62
--- NOTE | 2020-08-04 23:36 | NUR ---
PT IS RESTING IN BED. PT'S MOTHER CAME TO VISIT. PT COMPLAINED OF SOME PAIN TO ABDOMEN AREA. PAIN MEDICATION WAS GIVEN AND EFFECTIVE. PT IS ALERT AND ORIENTED AND ABLE TO MAKE WANTS AND NEEDS KNOWN TO STAFF. BED IN LOWEST POSITION WITH CALL LIGHT IN REACH.
[2020-08-05 06:26] LABS: BASOPHILS 0.3 % (0-2); EOSINOPHILS 2.9 % (0-7); HEMATOCRIT 37.2 % (42.0-54.0); HEMOGLOBIN 12.6 g/dL (13.5-17.5); IMMATURE GRANULOCYTES 0.2 % (0-5); LYMPHOCYTE ABS# 2.07 10x3/uL (1.32-3.57); LYMPHOCYTES 33.9 % (15-50); MCH 30.4 pg (26.0-34.0); MCHC 33.9 g/dL (31.0-37.0); MCV 89.6 fL (80.0-100.0); MEAN PLATELET VOLUME 11.1 fL (7.4-10.4); MONOCYTES 11.1 % (2-11); NEUTROPHIL ABS# 3.15 10x3/uL (1.78-5.38); NEUTROPHILS 51.6 % (40-80); PLATELET COUNT 241 10x3/uL (130-400); RBC 4.15 10x6/uL (4.20-6.10); RDW 12.5 % (11.5-14.5); WBC 6.1 10x3/uL (4.8-10.8)
[2020-08-05 06:46] LABS: ANION GAP 8.5 mmol/L (8-16); BILIRUBIN - TOTAL 1.51 mg/dL (0.2-1.3); CALCIUM 8.4 mg/dL (8.5-10.1); CARBON DIOXIDE 28.4 mmol/L (21.0-32.0); CREATININE - SERUM 1.3 mg/dL (0.6-1.3); POTASSIUM - SERUM 3.9 mmol/L (3.5-5.1)
--- NOTE | 2020-08-05 07:00 | NUR ---
AAOX4 UPON ENTERING. SUPINE IN BED, DENIES ANY NEEDS AT THIS TIME. BED IN LOWEST POSITION, BED RAILS X2, CALL LIGHT WITHIN REACH. WILL CONTINUE POC.
--- NOTE | 2020-08-05 08:11 | NUR ---
PRN DILAUDID FOR 7/[address] ABDOM[address] AT THIS TIME. AMBULATED TO WHEELCHAIR.
[2020-08-05 08:30] LABS: UDS - AMPHET NEGATIVE QUAL (NEGATIVE); UDS - BARB NEGATIVE QUAL (NEGATIVE); UDS - BENZO NEGATIVE QUAL (NEGATIVE); UDS - COCAINE NEGATIVE QUAL (NEGATIVE); UDS - OPIATE NEGATIVE QUAL (NEGATIVE); UDS - PCP NEGATIVE QUAL (NEGATIVE); UDS - THC NEGATIVE QUAL (NEGATIVE)
--- NOTE | 2020-08-05 11:23 | NUR ---
BACK FROM CT, HOOKED BACK UP TO FLUIDS. REQUESTING DRINK, WILL PROVIDE. DENIES FURTHER NEEDS. WILL CONTINUE POC.
[2020-08-05 13:55] VITALS: BP 100/47
--- NOTE | 2020-08-05 14:08 | NUR ---
PRN DILAUDID FOR 6/10 PAIN IN ABDOMEN. RESTING UPRIGHT IN BED. DENIES FURTHER NEEDS. WILL CONTINUE POC.
[2020-08-05 14:25] VITALS: Ht 175.3 cm; Wt 81.6 kg
--- NOTE | 2020-08-05 16:45 | NUR ---
ADMINISTERED IV MEDICATION, TOLERATED WELL. RESTING COMFORTABLY IN BED. DENIES ANY NEEDS AT THIS TIME. WILL CONTINUE POC.
[2020-08-05 17:46] VITALS: BP 106/42
--- NOTE | 2020-08-05 19:24 | NUR ---
I have reviewed this patient and I concur with the Shift Assessment completed by the Licensed Practical Nurse today this shift.
[2020-08-05 20:00] VITALS: BP 116/58
--- NOTE | 2020-08-06 03:54 | NUR ---
I have reviewed this patient and I concur with the Shift Assessment completed by the Licensed Practical Nurse today this shift.
[2020-08-06 04:00] VITALS: BP 135/78
[2020-08-06 06:13] LABS: BASOPHILS 0.1 % (0-2); EOSINOPHILS 0.5 % (0-7); HEMATOCRIT 35.8 % (42.0-54.0); IMMATURE GRANULOCYTES 0.3 % (0-5); LYMPHOCYTE ABS# 0.92 10x3/uL (1.32-3.57); LYMPHOCYTES 12.4 % (15-50); MCH 30.4 pg (26.0-34.0); MCHC 33.5 g/dL (31.0-37.0); MCV 90.6 fL (80.0-100.0); MONOCYTES 6.2 % (2-11); NEUTROPHIL ABS# 5.94 10x3/uL (1.78-5.38); NEUTROPHILS 80.5 % (40-80); PLATELET COUNT 233 10x3/uL (130-400); RBC 3.95 10x6/uL (4.20-6.10); RDW 12.3 % (11.5-14.5); WBC 7.4 10x3/uL (4.8-10.8)
[2020-08-06 06:34] LABS: ALKALINE PHOSPHATASE 77 U/L (30-120); ALT (SGPT) 32 U/L (10-68); CALC OSMOLALITY 282 mosm/kg (275-300); CALCIUM 8.7 mg/dL (8.5-10.1); CARBON DIOXIDE 27.1 mmol/L (21.0-32.0); CHLORIDE - SERUM 106 mmol/L (98-107); CREATININE - SERUM 1.1 mg/dL (0.6-1.3); GLUCOSE 117 mg/dL (74-106); PROTEIN - SERUM 6.1 g/dL (6.4-8.2); SODIUM 141 mmol/L (136-145); UREA NITROGEN 16 mg/dL (7-18); eGFR NON AFRICAN AMERICAN 85 mL/min (90-120)
[2020-08-06 08:57] VITALS: BP 103/66
[2020-08-06 13:17] VITALS: BP 120/52
--- NOTE | 2020-08-06 13:27 | NUR ---
Nutrition follow-up: Diet order: Regular PO intake poor due to continued nausea, pain per pt Labs reviewed Wt: 180# NO Bm charted Recommend a stool softener RDN will follow-up: 08/11/20
[2020-08-06 16:29] VITALS: BP 115/58
[2020-08-06 20:00] VITALS: BP 110/56
--- NOTE | 2020-08-06 20:00 | NUR ---
ALERT SITTING UP IN BED DENIES PAIN OR NEEDS AT THIS TIME, SEE SHIFT ASSESSMENT CALL LIGHT IN REACH
[2020-08-07] VITALS: BP 100/51
[2020-08-07 04:00] VITALS: BP 105/56
--- NOTE | 2020-08-07 07:30 | NUR ---
REC'D IN BED AWAKE AND ALERT WATCHING TV. RESP EVEN AND UNLABORED WITH NO DISTRESS NOTED. CAN EXPRESS NEEDS AND WANTS. ASSESSMENT COMPLETED. C/L IN REACH AT BEDSIDE.
[2020-08-07] MEDS ORDERED: ULTRAM50 MG PO (08:15)
[2020-08-07 10:18] VITALS: BP 108/55
[2020-08-07 10:50] LABS: BASOPHILS 0.2 % (0-2); EOSINOPHILS 3.7 % (0-7); HEMATOCRIT 36.2 % (42.0-54.0); HEMOGLOBIN 12.2 g/dL (13.5-17.5); LYMPHOCYTE ABS# 1.98 10x3/uL (1.32-3.57); LYMPHOCYTES 49.1 % (15-50); MCH 30.1 pg (26.0-34.0); MCHC 33.7 g/dL (31.0-37.0); MCV 89.4 fL (80.0-100.0); MEAN PLATELET VOLUME 10.7 fL (7.4-10.4); MONOCYTES 9.7 % (2-11); NEUTROPHILS 37.3 % (40-80); PLATELET COUNT 233 10x3/uL (130-400); RBC 4.05 10x6/uL (4.20-6.10); RDW 12.2 % (11.5-14.5)
[2020-08-07 10:53] LABS: ALBUMIN 2.9 g/dL (3.4-5.0); ANION GAP 11.2 mmol/L (8-16); BILIRUBIN - TOTAL 0.7 mg/dL (0.2-1.3); CALCIUM 8.5 mg/dL (8.5-10.1); CARBON DIOXIDE 26.7 mmol/L (21.0-32.0); CREATININE - SERUM 1.3 mg/dL (0.6-1.3); POTASSIUM - SERUM 3.9 mmol/L (3.5-5.1)
--- NOTE | 2020-08-07 11:19 | NUR ---
I have reviewed this patient and I concur with the Shift Assessment completed by the Licensed Practical Nurse today this shift.
[2020-08-07 13:05] VITALS: BP 113/73
[2020-08-07 17:31] VITALS: BP 120/60
[2020-08-07 21:01] VITALS: BP 114/63
--- NOTE | 2020-08-08 02:35 | NUR ---
I have reviewed this patient and I concur with the Shift Assessment completed by the Licensed Practical Nurse today this shift.
[2020-08-08 06:21] VITALS: BP 112/63
[2020-08-08 06:47] LABS: BASOPHILS 0.5 % (0-2); EOSINOPHILS 4.1 % (0-7); HEMATOCRIT 35.2 % (42.0-54.0); LYMPHOCYTE ABS# 1.45 10x3/uL (1.32-3.57); LYMPHOCYTES 37.5 % (15-50); MCH 30.2 pg (26.0-34.0); MCHC 34.1 g/dL (31.0-37.0); MCV 88.4 fL (80.0-100.0); MEAN PLATELET VOLUME 10.4 fL (7.4-10.4); MONOCYTES 8.3 % (2-11); NEUTROPHIL ABS# 1.92 10x3/uL (1.78-5.38); NEUTROPHILS 49.6 % (40-80); PLATELET COUNT 233 10x3/uL (130-400); RBC 3.98 10x6/uL (4.20-6.10); RDW 12.2 % (11.5-14.5); WBC 3.9 10x3/uL (4.8-10.8)
[2020-08-08 07:43] LABS: ALBUMIN 2.9 g/dL (3.4-5.0); ANION GAP 11.8 mmol/L (8-16); BILIRUBIN - TOTAL 0.4 mg/dL (0.2-1.3); CALCIUM 8.6 mg/dL (8.5-10.1); CARBON DIOXIDE 26.1 mmol/L (21.0-32.0); CREATININE - SERUM 1.3 mg/dL (0.6-1.3); POTASSIUM - SERUM 3.9 mmol/L (3.5-5.1); PROTEIN - SERUM 6.2 g/dL (6.4-8.2)
--- NOTE | 2020-08-08 08:45 | NUR ---
PRN DILAUDID FOR PAIN. MORNING MEDICATION, NO DIFFICULTIES. SITTING UP RIGHT IN BED. EATING BREAKFAST. DENIES ANY NEEDS. BED IN LOWEST POSITION, BED RAILS X2, CALL LIGHT WITHIN REACH. WILL CONTINUE POC.
[2020-08-08 09:11] VITALS: BP 108/69
--- NOTE | 2020-08-08 11:16 | NUR ---
RESTING COMFORTABLY, ADMINISTERED MEDICATION, NO DIFFICULTIES. DENIES ANY NEEDS .WILL CONTINEU POC.
--- NOTE | 2020-08-08 12:22 | NUR ---
ADMINISTERED MEDICATION, NO DIFFICULITES. SUPPOSITORY INSERTED, TOLERATED WELL. IN LEFT GUTIÉRREZ. DENIES FURTHER NEEDS. WILL CONTINUE POC.
[2020-08-08 13:20] VITALS: BP 114/70
--- NOTE | 2020-08-08 13:45 | NUR ---
PRN COMPAZINE FOR NAUSEA. REPROTS EPISODE OF VOMITING. WILL CONTACT AT THIS TIME. DENIES ANY NEEDS. WILL CONTINUE POC.
--- NOTE | 2020-08-08 14:46 | NUR ---
ADMINISTERED PRN NORCO FOR PAIN. INFORMED OF PLAN TO DROP NGT. PT IS REFUSING NGT AT THIS TIME. WILL INFORM LAI.
--- NOTE | 2020-08-08 15:58 | NUR ---
ADMINISTERED IV MEDICATION. TOLERATED WELL. REPORTS NO MORE VOMITING. WILL TALK WITH DR. FARNSWORTH IN REGARDS TO CONTINUING D/C OR NOT. DENIES ANY NEEDS. WILL CONTINUE POC.
--- NOTE | 2020-08-08 17:27 | NUR ---
I have reviewed this patient and I concur with the Shift Assessment completed by the Licensed Practical Nurse today this shift.
[2020-08-08 18:27] VITALS: BP 115/61
[2020-08-08 22:08] VITALS: BP 114/57
--- NOTE | 2020-08-09 03:00 | NUR ---
I have reviewed this patient and I concur with the Shift Assessment completed by the Licensed Practical Nurse today this shift.
[2020-08-09 05:54] VITALS: BP 128/71
[2020-08-09 06:21] LABS: BASOPHILS 1.1 % (0-2); EOSINOPHILS 3.7 % (0-7); HEMATOCRIT 36.9 % (42.0-54.0); HEMOGLOBIN 12.8 g/dL (13.5-17.5); IMMATURE GRANULOCYTES 0.3 % (0-5); LYMPHOCYTE ABS# 1.25 10x3/uL (1.32-3.57); LYMPHOCYTES 35.1 % (15-50); MCHC 34.7 g/dL (31.0-37.0); MEAN PLATELET VOLUME 10.8 fL (7.4-10.4); MONOCYTES 8.4 % (2-11); NEUTROPHIL ABS# 1.83 10x3/uL (1.78-5.38); NEUTROPHILS 51.4 % (40-80); PLATELET COUNT 260 10x3/uL (130-400); RBC 4.27 10x6/uL (4.20-6.10); WBC 3.6 10x3/uL (4.8-10.8)
[2020-08-09 06:22] LABS: MCV 86.4 fL (80.0-100.0)
[2020-08-09 06:47] LABS: ALBUMIN 2.9 g/dL (3.4-5.0); ALKALINE PHOSPHATASE 77 U/L (30-120); ALT (SGPT) 27 U/L (10-68); BILIRUBIN - TOTAL 0.66 mg/dL (0.2-1.3); CALC OSMOLALITY 279 mosm/kg (275-300); CALCIUM 8.9 mg/dL (8.5-10.1); CARBON DIOXIDE 26.4 mmol/L (21.0-32.0); CHLORIDE - SERUM 106 mmol/L (98-107); CREATININE - SERUM 1.2 mg/dL (0.6-1.3); GLUCOSE 99 mg/dL (74-106); POTASSIUM - SERUM 3.8 mmol/L (3.5-5.1); PROTEIN - SERUM 6.1 g/dL (6.4-8.2); SODIUM 141 mmol/L (136-145); UREA NITROGEN 10 mg/dL (7-18); eGFR NON AFRICAN AMERICAN 77 mL/min (90-120)
--- NOTE | 2020-08-09 09:22 | NUR ---
AAOX4 UPON ENTERING. ADMINISTERED MEDICATION, NO DIFFICULTIES. RESTING COMFORTABLY. DENIES ANY NEEDS. BED IN LOWEST POSITION, BED RAILS X2, CALL LIGHT WITHIN REACH. WILL CONTINUE POC.
[2020-08-09 09:42] VITALS: BP 127/77
--- NOTE | 2020-08-09 11:50 | NUR ---
I have reviewed this patient and I concur with the Shift Assessment completed by the Licensed Practical Nurse today this shift.
--- NOTE | 2020-08-09 13:27 | NUR ---
REMOVED IV FROM LEFT FOREARM, CATHETER TIP INTACT. COVERED WITH GAUZE AND TAPE. TOLERATED WELL. SIGNED ALL NECESSARY DISCHARGE PAPERWORK. LEAVING WITH FAMILY. DENIES FURTHER NEEDS FROM HOSPITAL/STAFF AT THIS TIME. ESCORTED OUT VIA WHEELCHAIR.
== END 2020-08-09 13:29 | disposition home or self-care (01) | DRG 389 ==
LOC: D.ER 08:58 → D.MS 16:15
PROVIDERS: Emergency Medicine; Family Medicine; ADMIT Family Medicine; ATTEND Family Medicine
DX: K56.7 Ileus, unspecified (principal); N17.9 Acute kidney failure, unspecified; K31.84 Gastroparesis; K21.9 Gastro-esophageal reflux disease without esophagitis; J45.909 Unspecified asthma, uncomplicated; K30 Functional dyspepsia; K56.2 Volvulus